=== PATIENT | female | born 1975 | race Caucasian/White ===

== ENCOUNTER → 2018-12-14 10:30 | Outpatient (POV) | payer BC, SELFPAY | PROVIDERS: Visit Provider Dermatology | DX: Z00.00 Encounter for general adult medical examination without abnormal findings (principal) ==

== ENCOUNTER → 2019-10-31 15:20 | Outpatient (CLI) | payer BC, SELFPAY ==
--- NOTE | 2019-10-31 15:28 | XR_ITS ---
PROCEDURE: XR ANKLE LT MIN 3V CLINICAL INDICATION: ACUTE L ANKLE PAIN COMPARISON: No exams were available for comparison FINDINGS: No fracture, dislocation, lytic change, or blastic change evident. No significant degenerative change IMPRESSION: No acute findings. Dictated by: Luther Kruse MD 10/31/2019 16:36 Electronically signed by Luther Kruse MD in [place] 10/31/2019 16:36
== END ==
PROVIDERS: PCP Family Medicine; Visit Provider Family Medicine
DX: M25.572 Pain in left ankle and joints of left foot (principal)
CPT/HCPCS: 73610

== ENCOUNTER → 2022-02-18 10:28 | Outpatient (POV) | payer BC, SELFPAY | PROVIDERS: Visit Provider Dermatology | DX: Z00.00 Encounter for general adult medical examination without abnormal findings (principal) ==

== ENCOUNTER 2023-06-05 18:07 | Emergency (ER) | payer BC, SELFPAY ==
[2023-06-05 18:19] VITALS: BP 192/102; PULSE 67; RESP 18; TEMP 36.6; O2SAT 98; BMI 39.8
[2023-06-05 18:31] VITALS: BP 162/95; PULSE 61; O2SAT 100
--- NOTE | 2023-06-05 18:56 | ED_ITS ---
Discharge Plan Disposition Patient Disposition: Home, Self-Care Prescriptions Prescriptions: No Action paroxetine HCl [Paxil] 10 mg tablet 10 mg PO DAILY Referrals Follow up/Referrals: Blaine Wang MD [Primary Care Provider] - See instructions Activity Restrictions/Add. Instructions Additional Instructions/Restrictions: Call your family doctor to establish care for this visit to the emergency department and schedule follow-up within 48 hours to ensure improvement. If you have any worsening of your condition or any other concerning signs or symptoms, return to the emergency department or your primary care doctor for further evaluation. Take Tylenol 1000 mg every 6 hours (4 times daily) and ibuprofen 400 mg every 6 hours (4 times daily) as needed with food and water to prevent GI upset and kidney damage. Clinical Impressions Clinical Impression: Acute right flank pain Instructions Patient Instructions: DI for Acute Abdominal Pain Discharge ED Provider: Jorge Luis Cedillo General Adult HPI General Chief complaint: Abdominal Pain Stated complaint: abd pain Time Seen by Provider: 06/05/23 18:11 Mode of Arrival: Ambulatory Source of Information: Patient and Spouse Limitations: No Limitations Description of Symptoms (Recalled from ER Triage Doc. by RN): pt c/o RLQ pain that radiates to her R flank. pt states this has been ongoing x3d. pt states she has been urinating more frequently but that is her only urinary symptom. pt reports the pain is stabbing and aching in nature and a 6/10. pt states the pain comes in waves. History of Present Illness HPI narrative: Is a 47-year-old female no relevant medical history presenting with abdominal pain. Patient states that she started having right flank pain 3 days or 4 days prior to this visit. Since that time, it is radiated from her right flank into her right lower quadrant. No fevers or chills, but has had nausea without vomiting and decreased appetite. Waxes and, currently 6 out of 10, stabbing and sharp. Normal bowel movements, no urinary symptoms, no abnormal vaginal discharge or bleeding. No abdominal surgical history Related Data Home Medications Medication Instructions Recorded Confirmed paroxetine HCl 10 mg tablet (Paxil) 10 mg PO DAILY 09/22/18 09/22/18 Allergies Allergy/AdvReac Type Severity Reaction Status Date / Time scallops Allergy Verified 09/22/18 12:44 sesame seed Allergy Verified 09/22/18 12:44 shrimp Allergy Verified 09/22/18 12:44 soy Allergy Verified 09/22/18 12:44 wheat Allergy Verified 09/22/18 12:44 NO KNOWN ALLERGIES Allergy Uncoded 03/17/17 14:08 tree nuts Allergy Uncoded 09/22/18 12:44 PFSH [facility] Disclaimer: The information contained in this section may have been updated after the patient was seen, as this information can be updated by other users. Social History Smoking Status: Never smoker alcohol intake: current substance use type: denies use current occupational status: employed Travel in the last 8 weeks: Inside the [place] ([place] household members: family housing: house ROS Obtained: Yes All systems reviewed & no additional complaints except as documented Physical Exam General General appearance: alert, in no apparent distress and other (Uncomfortable, moving around the bed) Head Head exam: atraumatic and normocephalic Eye Eye exam: Present normal appearance, PERRL and EOMI ENT ENT exam: Present mucous membranes moist Neck Neck exam: Present normal inspection, full ROM and trachea midline Respiratory Respiratory exam: Absent respiratory distress, wheezes, stridor, accessory muscle use or prolonged expiratory phase Cardiovascular Cardiovascular exam: Present regular rate and normal rhythm Abdominal Exam Abdominal exam: Present soft; Absent distention, tenderness, guarding, rebound or rigidity Extremities Exam Extremities exam: Absent edema Back Exam Back exam: Present CVA tenderness (R); Absent CVA tenderness (L) Neurological Exam Neurological exam: Present alert, oriented X3, CN II-XII intact and normal gait; Absent motor sensory deficit Skin Skin exam: Present warm and dry; Absent diaphoresis or erythema Medical Decision Making Medical Records Medical records reviewed: Yes I reviewed the patient's medical records. Derek Inquiry Pt receiving controlled substance: No Derek was queried for this patient: No Vital Signs: 06/05/23 18:19 06/05/23 18:31 Temperature 97.9 F Temperature Source Oral Pulse Rate 61 Pulse Rate [Left] 67 Respiratory Rate 18 Blood Pressure 162/95 H Blood Pressure [Right Arm] 192/102 H Blood Pressure Mean 103 Blood Pressure Mean [Right Arm] 132 Blood Pressure Source [Right Arm] Automatic Cuff Blood Pressure Position [Right Arm] Sitting 02 Sat by Pulse Oximetry 98 100 Lab Data Lab Results 06/05/23 18:30: WBC 8.2, RBC 4.93, Hgb 15.9, Hct 48.4 H, MCV 98.3, MCH 32.3 H, MCHC 32.8, RDW 13.1, Plt Count 290, MPV 8.9, Neut % (Auto) 56.7, Lymph % (Auto) 30.9, [place] % (Auto) 7.5, Eos % (Auto) 3.6, Baso % (Auto) 1.4, Neut # (Auto) 4.6, Lymph # (Auto) 2.5, [place] # (Auto) 0.6, Eos # (Auto) 0.3, Baso # (Auto) 0.1, Sodium 139, Potassium 4.0, Chloride 106, Carbon Dioxide 27, Anion Gap 10.0, BUN 13, Creatinine 0.90, Estimated Creat Clear 126, Estimated GFR 67, Est GFR ( Amer) 81, Glucose 94, Calcium 9.5, Total Bilirubin 0.6, AST 59 H, ALT 70, Alkaline Phosphatase 84, Total Protein 7.8, Albumin 4.3, Globulin 3.5 H, Albumin/Globulin Ratio 1.2, Lipase 141, Serum HCG, Qual Negative 06/05/23 20:38: Urine Color Yellow, Urine Appearance Clear, Urine pH 6.0, Ur Specific [place] 1.015, Urine Protein Negative, Urine Glucose (UA) Negative, Urine Ketones Negative, Urine Blood Negative, Urine Nitrate Negative, Urine Bilirubin Negative, Urine Urobilinogen 0.2, Ur Leukocyte Esterase Negative, Urine RBC None, Urine WBC Occasional, Ur Squamous Epith Cells 3-5, Urine Bacteria Trace, Urine HCG, Qual Negative 06/05/23 18:30 06/05/23 18:30 Orders (Tests/Meds): ED MEDICATIONS Discontinued Medications Generic Name Dose Route Start Last Admin Trade Name Freq PRN Reason Stop Dose Admin Lactated Ringer's 1,000 mls @ 999 mls/hr 06/05/23 18:48 06/05/23 19:03 Lactated Ringer's 1000 Ml Bag IV 06/05/23 19:48 999 mls/hr .Q1H1M ONE Administration Ketorolac Tromethamine 15 mg 06/05/23 18:48 06/05/23 19:03 Ketorolac 30mg/Ml Vial IV 06/05/23 18:49 15 mg ONCE ONE Administration Morphine Sulfate 4 mg 06/05/23 18:49 06/05/23 19:03 Morphine 4mg/Ml Syringe IV 06/05/23 18:50 4 mg ONCE ONE Administration Ondansetron HCl 4 mg 06/05/23 19:08 06/05/23 19:12 Ondansetron 4mg/2ml Vial IV 06/05/23 19:09 4 mg ONCE ONE Administration ORDERS Category Date Time Status CT abdomen pelvis wo con Stat Cat Scan 06/05/23 19:30 Completed CBC w/Auto Diff [Complete Blood Count Auto Diff] Stat Lab 06/05/23 18:30 Completed CMP [Comprehensive Metabolic Panel] Stat Lab 06/05/23 18:30 Completed HCG Qualitative, Serum Stat Lab 06/05/23 18:30 Completed Lipase Stat Lab 06/05/23 18:30 Completed UA [Urinalysis and Microscopic] Stat Lab 06/05/23 20:38 Completed Urine , HCG Qual. Stat Lab 06/05/23 20:38 Completed Medical Decision Narrative: Is a 47-year-old female no relevant medical history presenting with abdominal pain. Patient states that she started having right flank pain 3 days or 4 days prior to this visit. Since that time, it is radiated from her right flank into her right lower quadrant. No fevers or chills, but has had nausea without vomiting and decreased appetite. Waxes and, currently 6 out of 10, stabbing and sharp. Normal bowel movements, no urinary symptoms, no abnormal vaginal discharge or bleeding. No abdominal surgical history. History obtained with patient. On arrival, patient hemodynamically stable, alert, oriented x4, appropriate, GCS 15, moving all extremities spontaneously, pupils equal and reactive to light. Full physical exam performed and significant for well- appearing female, but appears to be uncomfortable. Moving around the bed unable to find comfortable position. Right flank tenderness, no abdominal tenderness. No overlying skin changes. Differential includes nephrolithiasis, UTI, pyelonephritis, perinephric abscess, pancreatitis, cholecystitis, , arterial insufficiency, renal artery thrombosis, among others. Patient was given Toradol and 4 mg morphine for symptomatic management and correction of underlying abnormalities. Workup independently interpreted and significant for nonactionable CBC, kidney function normal. hCG negative, lipase negative. CT abdomen pelvis without acute intra-abdominal pathology, stone, or otherwise. See radiology read for full review of final results. Urinalysis demonstrated negative. On reevaluation, patient resting comfortably in bed reading a book. Given patient presentation, workup, history, this most likely represents passed urinary stone versus pulled muscle. Because patient at baseline without signs or symptoms of clinical decompensation, deemed appropriate for discharge. Results were relayed to patient who voiced understanding and were agreeable to outpatient management and follow up. At the time of discharge the patient was hemodynamically stable, tolerating PO, and mobilizing appropriately. Critical Care Critical Care Time Critical Care Time: No
[2023-06-05 19:01] LABS: Basophils # 0.1 K/mm3 (0-0.2); Basophils % 1.4 % (0.1-2.0); Eosinophils # 0.3 K/mm3 (0.0-0.4); Eosinophils % 3.6 % (0.1-12.0); Hematocrit 48.4 % (37.0-47.0); Hemoglobin 15.9 g/dL (12.2-16.2); Lymphocytes # 2.5 K/mm3 (0.7-4.5); Lymphocytes % 30.9 % (10-50); Mean Corpuscular HGB Conc 32.8 g/dL (31.8-35.4); Mean Corpuscular Hemoglobin 32.3 pg (27.0-31.2); Mean Corpuscular Volume 98.3 fl (81-99); Mean Platelet Volume 8.9 fl (7.4-10.4); Monocytes # 0.6 K/mm3 (0.1-1.0); Monocytes % 7.5 % (1.7-9.3); Neutrophils # 4.6 K/mm3 (1.8-7.8); Neutrophils % 56.7 % (37.0-80.0); Platelet Count 290 K/mm3 (142-424); Red Blood Count 4.93 M/mm3 (4.20-5.40); Red Cell Distribution Width 13.1 % (11.5-17.5); White Blood Count 8.2 K/mm3 (4.8-10.8)
[2023-06-05 19:03] LABS: Chloride 106 mmol/L (98-107)
[2023-06-05] MEDS: KETOROLAC 30MG/ML VIAL 15 MG IV (19:03)
[2023-06-05] MEDS: LACTATED RINGERS 1000ML 1,000 ML 999 ML IV (19:03)
[2023-06-05] MEDS: MORPHINE 4MG/ML SYRINGE 4 MG IV (19:03)
[2023-06-05 19:04] LABS: Sodium 139 mmol/L (136-145)
[2023-06-05 19:06] LABS: Alanine Aminotransferase 70 U/L (12-78); Aspartate Amino Transferase 59 U/L (14-36); Blood Urea Nitrogen 13 mg/dl (7-17); Creatinine Clearance Estimated 126 mL/min (50-200); Estimated Glomerular Filt Rate 67 ml/min (>60); GFR (African American) 81 ML/MIN (>60)
[2023-06-05 19:07] LABS: Albumin Level 4.3 g/dl (3.5-5.0); Albumin/Globulin Ratio 1.2 (1.1-1.8); Alkaline Phosphatase 84 U/L (38-126); Bilirubin,Total 0.6 mg/dl (0.2-1.3); Calcium 9.5 mg/dl (8.4-10.2); Carbon Dioxide 27 mmol/L (22.0-30.0); Globulin 3.5 g/dL (1.3-3.2); Glucose 94 mg/dl (74-100); Lipase 141 U/L (23-300); Total Protein,Serum 7.8 g/dl (6.3-8.2)
[2023-06-05] MEDS: ONDANSETRON 4MG/2ML VIAL 4 MG IV (19:12)
--- NOTE | 2023-06-05 19:30 | CT_ITS ---
PROCEDURE INFORMATION: Exam: CT Abdomen And Pelvis Without Contrast Exam date and time: 06/05/2023 8:21 PM Age: 47 years old Clinical indication: Abdominal pain; Additional info: Right flank tenderness to right lower quadrant TECHNIQUE: Imaging protocol: Computed tomography of the abdomen and pelvis without contrast. Radiation optimization: All CT scans at this facility use at least one of these dose optimization techniques: automated exposure control; mA and/or kV adjustment per patient size (includes targeted exams where dose is matched to clinical indication); or iterative reconstruction. COMPARISON: No relevant prior studies available. FINDINGS: Lungs: Lung bases are clear. Liver: Moderate fatty changes. Liver otherwise unremarkable. Gallbladder and bile ducts: Normal. No calcified stones. No ductal dilation. Pancreas: Normal. No ductal dilation. Spleen: Normal. No splenomegaly. Adrenal glands: Normal. No mass. Kidneys and ureters: Normal. No hydronephrosis. Stomach and bowel: Unremarkable. No obstruction. No mucosal thickening. Appendix: Appendix is normal. No evidence of appendicitis. Intraperitoneal space: Unremarkable. No free air. No significant fluid collection. Vasculature: Unremarkable. No abdominal aortic aneurysm. Lymph nodes: Unremarkable. No enlarged lymph nodes. Urinary bladder: Unremarkable as visualized. Reproductive: Unremarkable as visualized. Bones/joints: Unremarkable. No acute fracture. Soft tissues: Unremarkable. IMPRESSION: No acute abnormalities of the abdomen and pelvis. Nonemergent findings as above.
--- NOTE | 2023-06-05 20:01 | PC.NURSE ---
spoke with rakel for r/o preg situation. advised we would add a serum preg onto her blood already drawn. spoke with caleb in rad and rancho in lab.
[2023-06-05 20:04] LABS: HCG Qualitative, Serum Negative (Negative)
--- NOTE | 2023-06-05 20:17 | PC.NURSE ---
pt to CT at this time
[2023-06-05 20:42] LABS: Microscopic, Urine URINE MICROSCOPIC (MICROSCOPIC)
[2023-06-05 20:52] LABS: Urine Pregnancy, HCG Qual. Negative (Negative)
[2023-06-05 21:53] LABS: Appearance,Urine CLEAR (Clear); Bilirubin,Urine Negative (Negative); Blood, Urine Negative (Negative); Color,Urine YELLOW (Yellow); Glucose,Urine (UA) Negative (Negative); Ketones,Urine Negative (Negative); Leukocyte Esterase,Urine Negative (Negative); Nitrate,Urine Negative (Negative); Protein,Urine Negative (Negative); Specific Gravity, Urine 1.015 (1.005-1.030); Urobilinogen,Urine 0.2 EU/dl (0.2)
[2023-06-05 21:59] LABS: Bacteria,Urine Trace /lpf; WBC,Urine Occasional #/hpf (0-3)
[2023-06-05 22:04] VITALS: BP 193/112; PULSE 71; RESP 16; TEMP 36.1; O2SAT 98
--- NOTE | 2023-06-05 22:04 | PC.NURSE ---
contacted rakel for disk. spoke with ariel.
[2023-06-05 22:07] VITALS: BP 193/112; PULSE 70; RESP 18; O2SAT 96
== END 2023-06-05 22:16 | disposition home or self-care (01) ==
PROVIDERS: Emergency Provider Emergency Medicine; PCP Family Medicine
DX: R10.31 Right lower quadrant pain (principal)
CPT/HCPCS: 36415; 74176; 80053; 81001; 81025; 83690; 84703; 85025; 96361; 96374; 96375; 99285; J2405

== ENCOUNTER 2023-08-22 10:03 | Emergency (ER) | payer BC, SELFPAY ==
[2023-08-22 10:10] VITALS: BP 140/89; PULSE 93; RESP 20; TEMP 36.7; O2SAT 96; BMI 39.3
--- NOTE | 2023-08-22 10:13 | EXP.UTC ---
Discharge Plan Disposition Patient Disposition: Home, Self-Care Condition: Good Prescriptions Prescriptions: New triamcinolone acetonide 0.1 % cream 1 applic topical TID Qty: 30 0RF Referrals Follow up/Referrals: Provider,Referral, MD [Primary Care Provider] - See instructions Activity Restrictions/Add. Instructions Additional Instructions/Restrictions: Make a follow up appointment with PCP. Take Benadryl once you get home. Clinical Impressions Clinical Impression: Allergic reaction caused by a drug Qualifiers: Encounter type: initial encounter Qualified Code(s): T78.40XA - Allergy, unspecified, initial encounter Instructions Patient Instructions: DI for Adverse Drug Reaction -- Allergic, DI for Adverse Drug Reaction -- Other Discharge ED Provider: Jazmín Russell [facility] General Stated complaint: allergic reaction to medication, rash Time Seen by Provider: 08/22/23 10:12 Description of Symptoms (Recalled from Triage Doc. by RN): Pt relates that she was prescribed HCTZ on Thursday and then she started having severe chills and body aches. She states that she awoke this morning with a rash on her right lower leg. She states that she has taken 800mg of Ibuprofen for her symptoms. She relates that she has stopped the HCTZ after one dose. History of Present Illness Provider Complaint: Pt relates that she was prescribed HCTZ on Thursday and then she started having severe chills and body aches. She states that she awoke this morning with a rash on her right lower leg. She states that she has taken 800mg of Ibuprofen for her symptoms. She relates that she has stopped the HCTZ after one dose. Related Data Previous Rx's Medication Instructions Recorded triamcinolone acetonide 0.1 % 1 applic topical TID #30 grams 08/22/23 topical cream Allergies Allergy/AdvReac Type Severity Reaction Status Date / Time escitalopram [From Lexapro] Allergy Verified 08/22/23 10:23 hydrochlorothiazide Allergy Verified 08/22/23 10:23 scallops Allergy Verified 09/22/18 12:44 sesame seed Allergy Verified 09/22/18 12:44 shrimp Allergy Verified 09/22/18 12:44 soy Allergy Verified 09/22/18 12:44 tree nut Allergy Verified 08/22/23 10:23 wheat Allergy Verified 09/22/18 12:44 [facility] Disclaimer: The information contained in this section may have been updated after the patient was seen, as this information can be updated by other users. Medical History (Updated 08/22/23 @ 10:41 by Jazmín Russell APRN) Depression Anxiety Social History Smoking Status: Never smoker alcohol intake: current alcohol intake frequency: a few times a month substance use type: denies use current occupational status: employed Travel in the last 8 weeks: [place] household members: family housing: house ROS Obtained: Yes All systems reviewed & no additional complaints except as documented Constitutional Constitutional: Reports system reviewed and no additional complaints, except as documented, Reports body ache and Reports chills Eyes Eyes: Reports system reviewed and no additional complaints, except as documented ENT Ears, Nose, Mouth, and Throat: Reports system reviewed and no additional complaints, except as documented Cardiovascular Cardiovascular: Reports system reviewed and no additional complaints, except as documented Respiratory Respiratory: Reports system reviewed and no additional complaints, except as documented Gastrointestinal Gastrointestingal: Reports system reviewed and no additional complaints, except as documented Genitourinary Female Genitourinary: Reports system reviewed and no additional complaints, except as documented Musculoskeletal Musculoskeletal: Reports system reviewed and no additional complaints, except as documented, Reports arthralgias and Reports myalgias Integumentary/Breasts Skin/Breast: Reports system reviewed and no additional complaints, except as documented and Reports rash Neurologic Neurologic: Reports system reviewed and no additional complaints, except as documented Endocrine Endocrine: Reports system reviewed and no additional complaints, except as documented Hematologic/Lymphatic Henatologic/Lymphatic: Reports system reviewed and no additional complaints, except as documented Allergic/Immunologic Allergic/Immunologic: Reports system reviewed and no additional complaints, except as documented and Reports as per HPI Physical Exam General General appearance: alert and anxious Head Head exam: atraumatic and normocephalic Eye Eye exam: Present normal appearance ENT ENT exam: Present normal exam Neck Neck exam: Present normal inspection Chest Chest inspection: Present normal inspection and symmetric chest wall rise Respiratory Respiratory exam: Present normal lung sounds bilaterally Cardiovascular Cardiovascular exam: Present regular rate and normal rhythm Abdominal Exam Abdominal exam: Present soft and normal bowel sounds Expanded Lower Extremity Exam Right: Upper leg exam: Present normal inspection Knee exam: Present normal inspection Lower leg exam: Present tenderness, swelling, erythema and other (rash) Foot/toe exam: Present normal inspection Neurovascular/Tendon exam: Present normal capillary refill Gait: observed and normal Back Exam Back exam: Present normal inspection Neurological Exam Neurological exam: Present alert and oriented X3 Psychiatric Psychiatric exam: Present normal affect and anxious Skin Skin exam: Present rash Expanded Skin Exam Type of lesion: Present rash Distribution: RLE Description: Present erythematous and petechial Lymphatic Lymphatic Findings: no adenopathy Medical Decision Making Derek Inquiry Pt receiving controlled substance: No Derek was queried for this patient: No
[2023-08-22] MEDS: DEXAMETHASONE 4MG/ML 1ML VIAL 4 MG IM (10:34)
[2023-08-22 11:04] VITALS: BP 140/89; PULSE 93; RESP 18; TEMP 36.7; O2SAT 96
== END 2023-08-22 11:04 | disposition home or self-care (01) ==
PROVIDERS: Emergency Provider Nurse Practitioner Family
DX: T78.40XA Allergy, unspecified, initial encounter (principal); R21 Rash and other nonspecific skin eruption
CPT/HCPCS: 96372; 99204; 99212; G0463

== ENCOUNTER 2023-08-24 10:53 | Emergency (ER) | payer BC, SELFPAY ==
[2023-08-24 10:54] VITALS: BP 165/112; PULSE 96; RESP 18; TEMP 36.6; O2SAT 97; BMI 39.3
[2023-08-24 11:00] VITALS: BP 165/112; PULSE 96; RESP 22; O2SAT 97
--- NOTE | 2023-08-24 11:06 | PC.NURSE ---
ED MD AT BEDSIDE
--- NOTE | 2023-08-24 11:15 | HMH.EDGENADL ---
Discharge Plan Disposition Patient Disposition: Home, Self-Care Condition: Fair Prescriptions Prescriptions: New cephalexin 500 mg capsule 500 mg PO QID 10 Days Qty: 40 0RF sulfamethoxazole-trimethoprim [Bactrim DS] 800-160 mg tablet 1 tab PO BID 10 Days Qty: 20 0RF No Action triamcinolone acetonide 0.1 % cream 1 applic topical TID Qty: 30 0RF Referrals Follow up/Referrals: Silverio Powell DO [Staff Physician] - See instructions Provider,Referral, [Primary Care Provider] - See instructions Activity Restrictions/Add. Instructions Additional Instructions/Restrictions: You were seen in the ED today due to infection of right leg. Please take antibiotics as prescribed. Follow-up with your primary care. Return to the ED if symptoms worsen or if new concerning symptoms arise. Thank you. Clinical Impressions Clinical Impression: Cellulitis of leg, right Instructions Patient Instructions: Cellulitis Discharge ED Provider: Brad Maxwell Adult HPI General Chief complaint: PAIN Stated complaint: rash on left leg pain and redness Time Seen by Provider: 08/24/23 11:02 Mode of Arrival: Ambulatory Source of Information: Patient Limitations: No Limitations Description of Symptoms (Recalled from ER Triage Doc. by RN): Patient presents to ED with a rash to her right nelson area that showed up last . Patient was seen thursday at [facility] but rash has spread up the leg at this time and it is very painful. Patient is also c/o of pain to the right groin area that started last night. History of Present Illness HPI narrative: Patient is a 47-year-old female with history of HTN who presents due to rash. Patient's is present to help provide history. Patient reports she began to have rash on right lower leg on 08/20. She was seen in urgent care the next day and was given steroids and advised to take Benadryl. She states since then, the rash has worsened and has become very red and painful. States she is able to ambulate but with pain. She also reports she has tenderness in her right upper inner thigh. She has not noticed any rash elsewhere. She denies any preceding trauma. She does note symptoms began after she began taking hydrochlorothiazide. She was also experiencing bodyaches, joint pains, fatigue however states these symptoms have resolved after she discontinued the medication. She has not had any fevers. Denies any history of blood clots. Denies any OCP use. Denies any blood thinner use. Related Data Previous Rx's Medication Instructions Recorded triamcinolone acetonide 0.1 % 1 applic topical TID #30 grams 08/22/23 topical cream cephalexin 500 mg capsule 500 mg PO QID 10 days #40 caps 08/24/23 sulfamethoxazole 800 1 tab PO BID 10 days #20 tabs 08/24/23 mg-trimethoprim 160 mg tablet (Bactrim DS) Allergies Allergy/AdvReac Type Severity Reaction Status Date / Time escitalopram [From Lexapro] Allergy Verified 08/22/23 10:23 hydrochlorothiazide Allergy Verified 08/22/23 10:23 scallops Allergy Verified 09/22/18 12:44 sesame seed Allergy Verified 09/22/18 12:44 shrimp Allergy Verified 09/22/18 12:44 soy Allergy Verified 09/22/18 12:44 tree nut Allergy Verified 08/22/23 10:23 wheat Allergy Verified 09/22/18 12:44 PFSH [facility] Disclaimer: The information contained in this section may have been updated after the patient was seen, as this information can be updated by other users. Medical History (Updated 08/24/23 @ 12:31 by Brad Maxwell MD) Depression Anxiety Social History Smoking Status: Never smoker alcohol intake: current alcohol intake frequency: a few times a month substance use type: denies use current occupational status: employed Travel in the last 8 weeks: Inside the [facility] ([place]) household members: family housing: house ROS Obtained: Yes All systems reviewed & no additional complaints except as documented Physical Exam General General appearance: alert and in no apparent distress Head Head exam: atraumatic, normocephalic and normal inspection Eye Eye exam: Present normal appearance, PERRL and EOMI ENT ENT exam: Present normal exam, normal oropharynx, mucous membranes moist, TM's normal bilaterally and normal external ear exam Neck Neck exam: Present normal inspection, full ROM and trachea midline; Absent meningismus or lymphadenopathy Chest Chest inspection: Present normal inspection and symmetric chest wall rise; Absent tenderness Respiratory Respiratory exam: Present normal lung sounds bilaterally; Absent respiratory distress Cardiovascular Cardiovascular exam: Present regular rate and normal rhythm; Absent JVD Abdominal Exam Abdominal exam: Present soft and normal bowel sounds; Absent distention, tenderness or guarding Extremities Exam Extremities exam: Present normal inspection, full ROM and normal capillary refill; Absent calf tenderness Back Exam Back exam: Present normal inspection; Absent tenderness Neurological Exam Neurological exam: Present alert and oriented X3 Psychiatric Psychiatric exam: Present normal affect and normal mood Skin Skin exam: Present warm, dry, intact, normal color and rash (Coalescing maculopapular rash, circumferential around right lower leg with blanchable erythema, warmth to touch, tenderness to touch. Tenderness to palpation of right upper inner thigh with no skin changes.) Lymphatic Lymphatic Findings: no adenopathy Medical Decision Making Medical Records Medical records reviewed: Yes I reviewed the patient's medical records. Derek Inquiry Pt receiving controlled substance: No Vital Signs: 08/24/23 10:54 08/24/23 11:00 08/24/23 11:31 Temperature 97.8 F Temperature Source Oral Pulse Rate 96 H 90 Pulse Rate [Right Radial] 96 H Respiratory Rate 18 22 22 Blood Pressure 165/112 H 135/82 Blood Pressure [Right Arm] 165/112 H Blood Pressure Mean 99 Blood Pressure Mean [Right Arm] 129 Blood Pressure Source [Right Arm] Automatic Cuff Blood Pressure Position [Right Arm] Sitting 02 Sat by Pulse Oximetry 97 97 97 Oxygen Delivery Method Room Air Room Air Room Air 08/24/23 12:00 Temperature Temperature Source Pulse Rate 75 Pulse Rate [Right Radial] Respiratory Rate Blood Pressure 137/76 Blood Pressure [Right Arm] Blood Pressure Mean 90 Blood Pressure Mean [Right Arm] Blood Pressure Source [Right Arm] Blood Pressure Position [Right Arm] 02 Sat by Pulse Oximetry 96 Oxygen Delivery Method Room Air Lab Data Lab Results 08/24/23 11:25: WBC 10.3, RBC 4.54, Hgb 14.4, Hct 43.6, MCV 96.0, MCH 31.8 H, MCHC 33.2, RDW 13.7, Plt Count 266, MPV 8.6, Neut % (Auto) 64.4, Lymph % (Auto) 24.1, [place] % (Auto) 10.5 H, Eos % (Auto) 0.4, Baso % (Auto) 0.6, Neut # (Auto) 6.7, Lymph # (Auto) 2.5, [place] # (Auto) 1.1 H, Eos # (Auto) 0.0, Baso # (Auto) 0.1, PT 10.4, INR 0.96, Sodium 136, Potassium 3.6, Chloride 102, Carbon Dioxide 28, Anion Gap 9.6, BUN 18 H, Creatinine 1.10 H, Estimated Creat Clear 101, Estimated GFR 53 L, Est GFR ( Amer) 64, Glucose 93, Calcium 9.3, Total Bilirubin 0.4, AST 43 H, ALT 62, Alkaline Phosphatase 71, C-Reactive Protein 71.3 H, Total Protein 7.3, Albumin 3.7, Globulin 3.6 H, Albumin/Globulin Ratio 1.0 L 08/24/23 11:25 08/24/23 11:25 Orders (Tests/Meds): ED MEDICATIONS Discontinued Medications Generic Name Dose Route Start Last Admin Trade Name Freq PRN Reason Stop Dose Admin Morphine Sulfate 4 mg 08/24/23 11:13 08/24/23 11:20 Morphine 4mg/Ml Syringe IV 08/24/23 11:14 4 mg ONCE ONE Administration Ondansetron HCl 4 mg 08/24/23 11:13 08/24/23 11:20 Ondansetron 4mg/2ml Vial IV 08/24/23 11:14 4 mg ONCE ONE Administration ORDERS Category Date Time Status POCUS Point of Care (ER Only) Stat Exams 08/24/23 12:05 Ordered CBC w/Auto Diff [Complete Blood Count Auto Diff] Stat Lab 08/24/23 11:25 Completed CMP [Comprehensive Metabolic Panel] Stat Lab 08/24/23 11:25 Completed CRP [C-Reactive Protein] Stat Lab 08/24/23 11:25 Completed PT INR [Prothrombin Time INR] Stat Lab 08/24/23 11:25 Completed Medical Decision Narrative: In summary, patient is a 47-year-old female with history of HTN, evaluated in the emergency department today due to rash and leg pain. On arrival, patient is hypertensive, otherwise hemodynamically stable with normal vital signs. On examination, patient has tenderness to palpation of right upper inner thigh and maculopapular rash over right lower leg. Differential diagnosis includes but is not limited to cellulitis, contact dermatitis, DVT, medication side effect. Patient given IV morphine, IV Zofran. Workup initiated including CBC, CMP, CRP, PT/INR. Labs independently interpreted by me and significant for CRP 71.3, creatinine 1.1. [id number] DVT ultrasound of right lower extremity negative for DVT. Based on quality and presentation of patient's symptoms, we will plan to treat for cellulitis. In shared decision-making with patient, she is comfortable with outpatient management at this time. Prescriptions for Keflex and Bactrim provided. Referral for primary care provided. Patient counseled on home care, given strict return precautions and agreeable to plan. Additional history was provided by family. I considered the utility of obtaining CT, but decided against this because this would not interchange agent. I considered the utility of treatment with prescription for narcotics, but decided against this because risks outweigh benefits. I considered admitting the patient to the hospital for IV antibiotics, and in shared decision-making with patient, decided on outpatient therapy. Procedures Limited Ultrasound Indication:: Right leg pain, swelling Findings:: Normal compression of right lower extremity veins with no clot seen. Interpretation:: Negative DVT scan. Critical Care Critical Care Time Critical Care Time: No
[2023-08-24] MEDS: MORPHINE 4MG/ML SYRINGE 4 MG IV (11:20)
[2023-08-24] MEDS: ONDANSETRON 4MG/2ML VIAL 4 MG IV (11:20)
[2023-08-24 11:31] VITALS: BP 135/82; PULSE 90; RESP 22; O2SAT 97
[2023-08-24 11:43] LABS: Chloride 102 mmol/L (98-107)
[2023-08-24 11:44] LABS: Potassium 3.6 mmoL/L (3.5-5.1); Sodium 136 mmol/L (136-145)
[2023-08-24 11:46] LABS: Alanine Aminotransferase 62 U/L (12-78); Alkaline Phosphatase 71 U/L (38-126); Aspartate Amino Transferase 43 U/L (14-36); Bilirubin,Total 0.4 mg/dl (0.2-1.3); Blood Urea Nitrogen 18 mg/dl (7-17); Creatinine Clearance Estimated 101 mL/min (50-200); Estimated Glomerular Filt Rate 53 ml/min (>60); GFR (African American) 64 ML/MIN (>60)
[2023-08-24 11:47] LABS: Albumin Level 3.7 g/dl (3.5-5.0); Anion Gap 9.6 mEq/L (5-15); Calcium 9.3 mg/dl (8.4-10.2); Carbon Dioxide 28 mmol/L (22.0-30.0); Globulin 3.6 g/dL (1.3-3.2); Glucose 93 mg/dl (74-100); Total Protein,Serum 7.3 g/dl (6.3-8.2)
[2023-08-24 11:52] LABS: C-Reactive Protein 71.3 mg/L (0-4)
[2023-08-24 11:56] LABS: Basophils # 0.1 K/mm3 (0-0.2); Basophils % 0.6 % (0.1-2.0); Eosinophils % 0.4 % (0.1-12.0); Hematocrit 43.6 % (37.0-47.0); Hemoglobin 14.4 g/dL (12.2-16.2); Lymphocytes # 2.5 K/mm3 (0.7-4.5); Lymphocytes % 24.1 % (10-50); Mean Corpuscular HGB Conc 33.2 g/dL (31.8-35.4); Mean Corpuscular Hemoglobin 31.8 pg (27.0-31.2); Mean Platelet Volume 8.6 fl (7.4-10.4); Monocytes # 1.1 K/mm3 (0.1-1.0); Monocytes % 10.5 % (1.7-9.3); Neutrophils # 6.7 K/mm3 (1.8-7.8); Neutrophils % 64.4 % (37.0-80.0); Platelet Count 266 K/mm3 (142-424); Red Blood Count 4.54 M/mm3 (4.20-5.40); Red Cell Distribution Width 13.7 % (11.5-17.5); White Blood Count 10.3 K/mm3 (4.8-10.8)
[2023-08-24 12:00] VITALS: BP 137/76; PULSE 75; O2SAT 96
[2023-08-24 12:07] LABS: INR 0.96 (0.9-1.1); Prothrombin Time 10.4 seconds (10.1-12.5)
--- NOTE | 2023-08-24 12:11 | PC.NURSE ---
Dr. Maxwell at bedside with u/s
[2023-08-24 12:35] VITALS: BP 128/64; PULSE 76; RESP 18; TEMP 36.8; O2SAT 99
== END 2023-08-24 12:43 | disposition home or self-care (01) ==
PROVIDERS: Emergency Provider Student in an Organized Health Care Education/Training Program
DX: M79.604 Pain in right leg (principal); L03.115 Cellulitis of right lower limb; I10 Essential (primary) hypertension
CPT/HCPCS: 80053; 85025; 85610; 86140; 96374; 96375; 99285; J2405

== ENCOUNTER 2023-11-28 09:23 | Observation (INO) | payer BC, SELFPAY ==
[2023-11-28] VITALS (9 sets, daily range): BP systolic 100–168; BP diastolic 61–97; PULSE 73–100; RESP 13–20; TEMP 36.7–37.7; O2SAT 91–95; BMI 38.0; BMI 40.0
--- NOTE | 2023-11-28 09:48 | ED_ITS ---
Discharge Plan Disposition Patient Disposition: Admitted Condition: Good Clinical Impressions Clinical Impression: Erysipelas, Sepsis, Hematuria Discharge ED Provider: Shonda Shay General Adult HPI General Chief complaint: Allergic Reaction Stated complaint: redness, fever, headache right leg pain Time Seen by Provider: 11/28/23 09:29 History of Present Illness HPI narrative: This patient is a 48-year-old female with a history of hypertension and prior reaction to hydrochlorothiazide presenting to the emergency department for evaluation with concern for redness, warmth, pain to her right leg as well as fevers, chills, headache, nausea, body aches. Patient states that this feels similar to when she was seen here 08/24/2023 for similar issues and states that it was because of an allergic reaction to hydrochlorothiazide. She was having bodyaches, joint pains, and fatigue but those stopped after she stopped taking the hydrochlorothiazide. She was evaluated here in the ED and was found to have cellulitis, for which she was treated as an outpatient with triamcinolone, Bactrim, and Keflex. The symptoms then resolved. She states she has not seen anyone for follow-up since then, as she had been doing fine and has been working a lot. On 2 days ago, she had red wine and figs out with a friend. Immediately after that she started feeling really ill with again fevers, body aches, fatigue, nausea. She states that he feels similar to when she had the issue back in July. She states that she thinks she may be having a histamine type reaction, but now she is having redness, warmth, and pain in her leg again as well as a rash, for which she became concerned for cellulitis Related Data Home Medications ?Medication ?Instructions ?Recorded ?Confirmed No Known Home Medications 11/28/23 11/28/23 Allergies Allergy/AdvReac Type Severity Reaction Status Date / Time escitalopram [From Lexapro] Allergy Verified 08/22/23 10:23 hydrochlorothiazide Allergy Verified 08/22/23 10:23 scallops Allergy Verified 09/22/18 12:44 sesame seed Allergy Verified 09/22/18 12:44 shrimp Allergy Verified 09/22/18 12:44 soy Allergy Verified 09/22/18 12:44 tree nut Allergy Verified 08/22/23 10:23 wheat Allergy Verified 09/22/18 12:44 [facility] Disclaimer: The information contained in this section may have been updated after the patient was seen, as this information can be updated by other users. Medical History Depression Anxiety Family History Other No significant family history Social History Smoking Status: Former smoker alcohol intake: current alcohol intake frequency: a few times a month substance use type: denies use current occupational status: employed Travel in the last 8 weeks: Inside the [place] ([place]) household members: family housing: house ROS Obtained: Yes All systems reviewed & no additional complaints except as documented Physical Exam General General appearance: alert and in no apparent distress Head Head exam: atraumatic and normocephalic Eye Eye exam: Present normal appearance, PERRL and EOMI ENT ENT exam: Present normal exam, normal oropharynx, mucous membranes moist and normal external ear exam Neck Neck exam: Present normal inspection, full ROM and trachea midline; Absent tenderness Chest Chest inspection: Present normal inspection and symmetric chest wall rise; Absent tenderness Respiratory Respiratory exam: Present normal lung sounds bilaterally; Absent respiratory distress, wheezes, stridor or accessory muscle use Cardiovascular Cardiovascular exam: Present regular rate and normal rhythm Abdominal Exam Abdominal exam: Present soft; Absent distention, tenderness or guarding Extremities Exam Extremities exam: Present full ROM, tenderness, normal capillary refill, edema and other (Well-circumscribed erythematous macular rash streaking up the right lower extremity mostly on the posterolateral aspect. All compartments soft. Neurovascularly intact distally) Back Exam Back exam: Present normal inspection and full ROM; Absent tenderness Neurological Exam Neurological exam: Present alert, oriented X3, CN II-XII intact and normal gait; Absent motor sensory deficit Psychiatric Psychiatric exam: Present normal affect and normal mood Skin Skin exam: Present warm and dry Medical Decision Making Medical Records Medical records reviewed: Yes I reviewed the patient's medical records. Derek Inquiry Pt receiving controlled substance: No Vital Signs: 11/28/23 09:25 11/28/23 09:31 11/28/23 10:05 Temperature 99.8 F H Temperature Source Oral Pulse Rate 100 H 95 H Pulse Rate [Left Radial] 92 H Respiratory Rate 16 Blood Pressure 156/88 H 168/97 H Blood Pressure [Right Arm] 156/88 H Blood Pressure Mean [Right Arm] 110 02 Sat by Pulse Oximetry 95 93 L 93 L Oxygen Delivery Method Room Air Room Air Room Air 11/28/23 11:01 11/28/23 12:00 11/28/23 12:47 Temperature 98.0 F Temperature Source Pulse Rate 80 74 74 Pulse Rate [Left Radial] Respiratory Rate 13 Blood Pressure 100/69 L 112/61 112/61 Blood Pressure [Right Arm] Blood Pressure Mean [Right Arm] 02 Sat by Pulse Oximetry 95 93 L Oxygen Delivery Method Room Air Room Air Lab Data Lab results reviewed: Yes I reviewed the patient's lab results. Lab Results 11/28/23 09:46: WBC 12.3 H, RBC 4.66, Hgb 14.7, Hct 45.6, MCV 97.8, MCH 31.5 H, MCHC 32.2, RDW 14.3, Plt Count 228, MPV 8.4, Neut % (Auto) 84.6 H, Lymph % (Auto) 9.6 L, [place] % (Auto) 4.5, Eos % (Auto) 0.9, Baso % (Auto) 0.4, Neut # (Auto) 10.4 H, Lymph # (Auto) 1.2, [place] # (Auto) 0.6, Eos # (Auto) 0.1, Baso # (Auto) 0.1, ESR 44 H, D-Dimer 0.69 H, Sodium 134 L, Potassium 3.7, Chloride 104, Carbon Dioxide 24, Anion Gap 9.7, BUN 7, Creatinine 0.90, Estimated Creat Clear 12, Estimated GFR 66, Est GFR ( Amer) 80, Glucose 104 H, Lactate 0.8, Calcium 9.0, Total Bilirubin 0.8, AST 36, ALT 51, Alkaline Phosphatase 67, C- Reactive Protein 228.1 H, Total Protein 7.9, Albumin 3.9, Globulin 4.0 H, A lbumin/Globulin Ratio 1.0 L, Procalcitonin 0.227 11/28/23 09:54: SARS-CoV-2 (PCR) Not detected, Influenza A Untype (PCR) Not detected, Influenza Type B (PCR) Not detected 11/28/23 09:59: Urine Color Yellow, Urine Appearance Clear, Urine pH 6.0, Ur Specific [place] 1.015, Urine Protein Negative, Urine Glucose (UA) Negative, Urine Ketones 2+, Urine Blood 1+ A, Urine Nitrate Negative, Urine Bilirubin 1+ A , Urine Urobilinogen 0.2, Ur Leukocyte Esterase Negative, Urine RBC Occasional, Urine WBC None, Ur Squamous Epith Cells 3-5, Urine Bacteria Trace 11/28/23 09:46 11/28/23 09:46 Orders (Tests/Meds): ED MEDICATIONS Generic Name Dose Route Start Last Admin Trade Name Merly PRN Reason Stop Dose Admin Acetaminophen 650 mg 11/28/23 12:15 Acetaminophen 325mg Tab PO 12/28/23 12:14 Q4HP PRN Fever or Mild Pain (1-3) Ceftriaxone Sodium 2 gm/ 100 mls @ 200 mls/hr 11/29/23 12:00 Sodium Chloride IV 12/09/23 11:59 Q24H [facility] Vancomycin/PEG/[place]/Lysine/Water 1.75 gm in 350 mls @ 175 mls/hr 11/29/23 06:00 Vancomycin 1.75gm/350ml (Peg) Premix IV 12/09/23 05:59 Q18H [facility] Ketorolac Tromethamine 30 mg 11/28/23 12:15 Ketorolac 30mg/Ml Vial IV 12/03/23 12:14 Q6HP PRN Moderate Pain (4-6) Miscellaneous 1 each 11/28/23 12:30 11/28/23 14:04 Vancomycin Consult Request NOTAPPLIC 12/28/23 12:29 1 each [facility]ULT [facility] Administration Discontinued Medications Generic Name Dose Route Start Last Admin Trade Name eMrly PRN Reason Stop Dose Admin Acetaminophen 1,000 mg 11/28/23 09:44 11/28/23 09:52 Acetaminophen 1,000mg/100ml Vial IV 11/28/23 09:45 1,000 mg ONCE ONE Administration Dexamethasone Sodium Phosphate 10 mg 11/28/23 10:52 11/28/23 11:02 Dexamethasone 4mg/Ml 1ml Vial IV 11/28/23 10:53 10 mg ONCE ONE Administration Diphenhydramine HCl 25 mg 11/28/23 10:52 11/28/23 11:01 Diphenhydramine 50mg/Ml Vial IV 11/28/23 10:53 25 mg ONCE ONE Administration Lactated Ringer's 1,000 mls @ 999 mls/hr 11/28/23 09:44 11/28/23 09:52 Lactated Ringer's 1000 Ml Bag IV 11/28/23 10:44 999 mls/hr .Q1H1M ONE Administration Lactated Ringer's 1,640 mls @ 820 mls/hr 11/28/23 10:29 11/28/23 10:38 Lactated Ringer's 1000 Ml Bag 30 ml/kg infuse over 2 hr (1640 ml) 11/28/23 12:28 820 mls/hr IV Administration .Q2H ONE Ceftriaxone Sodium 2 gm/ 100 mls @ 200 mls/hr 11/28/23 11:47 11/28/23 12:00 Sodium Chloride IV 11/28/23 12:16 200 mls/hr ONCE ONE Administration Vancomycin/PEG/[place]/Lysine/Water 1.75 gm in 350 mls @ 175 mls/hr 11/28/23 12:00 11/28/23 12:08 Vancomycin 1.75gm/350ml (Peg) Premix IV 11/28/23 13:59 175 mls/hr ONCE ONE Administration Ketorolac Tromethamine 15 mg 11/28/23 09:44 11/28/23 09:52 Ketorolac 30mg/Ml Vial IV 11/28/23 09:45 15 mg ONCE ONE Administration Metoclopramide HCl 5 mg 11/28/23 10:52 11/28/23 11:01 Metoclopramide Hcl 10mg/2ml Vial IVP 11/28/23 10:53 5 mg ONCE ONE Administration Miscellaneous 1 each 11/28/23 12:00 Vancomycin Consult Request NOTAPPLIC 12/28/23 11:59 [facility] Ondansetron HCl 4 mg 11/28/23 09:44 11/28/23 09:52 Ondansetron 4mg/2ml Vial IV 11/28/23 09:45 4 mg ONCE ONE Administration ORDERS Category Date Time Status CT abdomen pelvis wo con Stat Cat Scan 11/28/23 10:29 Completed POCUS Point of Care (ER Only) Stat Exams 11/28/23 10:17 Completed CRP [C-Reactive Protein] Stat Lab 11/28/23 09:46 Completed Complete Blood Count Auto Diff AMLAB Lab 11/29/23 06:00 Ordered Complete Blood Count Auto Diff Stat Lab 11/28/23 09:46 Completed Comprehensive Metabolic Panel [facility] Lab 11/29/23 06:00 Ordered Comprehensive Metabolic Panel Stat Lab 11/28/23 09:46 Completed D-Dimer Stat Lab 11/28/23 09:46 Completed ESR [Erythrocyte Sedimentation Rate] Stat Lab 11/28/23 09:46 Completed Lactic Acid Stat Lab 11/28/23 09:46 Completed Magnesium [facility] Lab 11/29/23 06:00 Ordered Procalcitonin Stat Lab 11/28/23 09:46 Completed Rapid PCR Covid and Flu A/B Stat Lab 11/28/23 09:54 Completed UA [Urinalysis and Microscopic] Stat Lab 11/28/23 09:59 Completed Blood Culture Stat Micro 11/28/23 09:55 Received Urine Culture Stat Micro 11/28/23 11:07 Received Medical Decision Narrative: In summary, this patient is a 48-year-old female presenting to the Emergency Department for evaluation of fevers, chills, nausea, body aches, and redness and warmth of her right leg. She notes this started acutely after drinking wine and eating figs. Differential diagnoses considered include but are not limited to cellulitis, erysipelas, sepsis, histamine reaction, viral syndrome, DVT. Ruling out the most morbid conditions drove assessment. I reviewed patient's past medical records and noted previous evaluation here for similar issue 08/21/2023 as per HPI. On exam, the patient is nontoxic-appearing. She has erythematous macular rash that is warm to the touch and tender to palpation streaking up the lateral aspect of her right leg. All compartments soft. Neurovascularly intact distally. Workup included lab evaluation to evaluate for infectious/metabolic etiologies of the patient's symptoms as well as viral swab. She was given a bolus of IV fluids as well as IV Zofran, Toradol, and acetaminophen. Labs were obtained that demonstrated leukocytosis with elevated inflammatory markers. D-dimer is negative per years criteria, but I did perform a DVT ultrasound which was negative urine is positive for blood and bilirubin. Patient does have a history of kidney stones given that she is presenting with a sepsis picture currently with fever, tachycardia, tachypnea, and leukocytosis, decided to obtain CT abdomen and pelvis without IV contrast to evaluate for potential stone. I had an interactive discussion with the radiologist and intermittently interpreted the CT prior to radiology read and noted that she has pelvic phleboliths but no ureteral stones. No hydronephrosis. Ultimately I feel she likely has erysipelas of her right lower extremity and she meets sepsis criteria. Given this, I feel she would benefit from admission for IV antibiotics pending blood cultures. She was given sepsis bolus of IV fluids as well as IV vancomycin and Rocephin to treat skin and soft tissue infection. I had an interactive discussion with the hospitalist who admitted the patient for further evaluation and management Procedures Limited Ultrasound Views:: Limited DVT ultrasound Indication: Limited compression ultrasonography of the right lower extremity was performed to evaluate for non-compressibility of the deep veins in the patient. The ultrasound was performed with the following indications, as noted in the H&P: Right leg swelling, pain, erythema Identified structures: Right [common femoral vein, femoral vein, popliteal vein were examined.] Findings: Lower Extremity: Right CFV: [Good compressibility or Non-compressible or Not performed] Right FV: [Good compressibility or Non-compressible or Not performed] Right Popliteal vein: [Good compressibility or Non-compressible or Not performed] Impression: Normal right lower extremity DVT ultrasound Images were saved to permanent archive The study was technically adequate CPT: 97564-59-YL This study was performed by me, and I personally interpreted all images/videos. Based on my clinical judgement, these images were adequate and did not necessitate further imaging. Critical Care Critical Care Time Critical Care Time: No
[2023-11-28] MEDS: ONDANSETRON 4MG/2ML VIAL 4 MG IV (09:52)
[2023-11-28] MEDS: ACETAMINOPHEN 1,000MG/100ML VIAL 1000 MG IV (09:52)
[2023-11-28] MEDS: KETOROLAC 30MG/ML VIAL 15 MG IV (09:52)
[2023-11-28] MEDS: LACTATED RINGERS 1000ML 1,000 ML 999 ML IV (09:52)
[2023-11-28 09:57] LABS: Coronavirus 19, PCR Not Detected (NotDetected); Influenza A, PCR Not Detected (NotDetected); Influenza B, PCR Not Detected (NotDetected)
[2023-11-28 09:57] LABS: Basophils # 0.1 K/mm3 (0-0.2); Basophils % 0.4 % (0.1-2.0); Eosinophils # 0.1 K/mm3 (0.0-0.4); Eosinophils % 0.9 % (0.1-12.0); Hematocrit 45.6 % (37.0-47.0); Hemoglobin 14.7 g/dL (12.2-16.2); Lymphocytes # 1.2 K/mm3 (0.7-4.5); Lymphocytes % 9.6 % (10-50); Mean Corpuscular HGB Conc 32.2 g/dL (31.8-35.4); Mean Corpuscular Hemoglobin 31.5 pg (27.0-31.2); Mean Corpuscular Volume 97.8 fl (81-99); Mean Platelet Volume 8.4 fl (7.4-10.4); Monocytes # 0.6 K/mm3 (0.1-1.0); Monocytes % 4.5 % (1.7-9.3); Neutrophils # 10.4 K/mm3 (1.8-7.8); Neutrophils % 84.6 % (37.0-80.0); Platelet Count 228 K/mm3 (142-424); Red Blood Count 4.66 M/mm3 (4.20-5.40); Red Cell Distribution Width 14.3 % (11.5-17.5); White Blood Count 12.3 K/mm3 (4.8-10.8)
[2023-11-28 10:05] LABS: Alanine Aminotransferase 51 U/L (12-78); Albumin Level 3.9 g/dl (3.5-5.0); Alkaline Phosphatase 67 U/L (38-126); Anion Gap 9.7 mEq/L (5-15); Aspartate Amino Transferase 36 U/L (14-36); Bilirubin,Total 0.8 mg/dl (0.2-1.3); Blood Urea Nitrogen 7 mg/dl (7-17); Carbon Dioxide 24 mmol/L (22.0-30.0); Chloride 104 mmol/L (98-107); Creatinine Clearance Estimated 12 mL/min (50-200); Estimated Glomerular Filt Rate 66 ml/min (>60); GFR (African American) 80 ML/MIN (>60); Glucose 104 mg/dl (74-100); Potassium 3.7 mmoL/L (3.5-5.1); Sodium 134 mmol/L (136-145); Total Protein,Serum 7.9 g/dl (6.3-8.2)
[2023-11-28 10:06] LABS: Lactic Acid 0.8 mmol/L (0.7-2.1)
[2023-11-28 10:07] LABS: Microscopic, Urine URINE MICROSCOPIC (MICROSCOPIC)
[2023-11-28 10:08] LABS: Appearance,Urine CLEAR (Clear); Blood, Urine 1+ (Negative); Color,Urine YELLOW (Yellow); Glucose,Urine (UA) Negative (Negative); Ketones,Urine 2+ (Negative); Leukocyte Esterase,Urine Negative (Negative); Nitrate,Urine Negative (Negative); Protein,Urine Negative (Negative); Specific Gravity, Urine 1.015 (1.005-1.030); Urobilinogen,Urine 0.2 EU/dl (0.2)
[2023-11-28 10:10] LABS: C-Reactive Protein 228.1 mg/L (0-4)
[2023-11-28 10:11] LABS: D-Dimer 0.69 ug/mL (0.0-0.5)
[2023-11-28 10:11] LABS: Bilirubin,Urine 1+ (Negative)
[2023-11-28 10:16] LABS: Bacteria,Urine Trace /lpf; RBC,Urine Occasional #/hpf (0-3)
--- NOTE | 2023-11-28 10:20 | PC.NURSE ---
Dr. Shay at [facility]
[2023-11-28 10:25] LABS: Procalcitonin 0.227 ng/mL (0.0-2.0)
--- NOTE | 2023-11-28 10:29 | CT_ITS ---
PROCEDURE INFORMATION: Exam: CT Abdomen And Pelvis Without Contrast Exam date and time: 11/28/2023 10:43 AM Age: 48 years old Clinical indication: Other: Hematuria; Additional info: Fever, hematura, h/o kidney stones TECHNIQUE: Imaging protocol: Computed tomography of the abdomen and pelvis without contrast. Radiation optimization: All CT scans at this facility use at least one of these dose optimization techniques: automated exposure control; mA and/or kV adjustment per patient size (includes targeted exams where dose is matched to clinical indication); or iterative reconstruction. COMPARISON: CT ABDOMEN PELVIS WO CON 06/05/2023 8:21 PM FINDINGS: Lungs: There is streaky atelectasis noted. Liver: The liver is diffusely hypodense compatible with fatty infiltration with areas of focal sparing. A capsular calcification is noted along the posterior right hepatic lobe. Gallbladder and biliary ducts: The gallbladder is relatively contracted. Pancreas: Normal. No ductal dilation. Spleen: Normal. No splenomegaly. Adrenal glands: Normal. No mass. Kidneys and ureters: The kidneys are normal in size and contour without hydronephrosis or nephrolithiasis. Stomach and bowel: There is no evidence for small bowel obstruction. Stool scattered throughout the colon. Appendix: No evidence of appendicitis. Intraperitoneal space: Unremarkable. No free air. No significant fluid collection. Vasculature: Unremarkable. No abdominal aortic aneurysm. Lymph nodes: There is mild right inguinal lymphadenopathy measuring up to 31 mm in maximum dimension. Please correlate clinically and with physical examination. Urinary bladder: The urinary bladder is contracted. Reproductive: Unremarkable as visualized. Bones/joints: Degenerative changes are noted within the bones. Soft tissues: Unremarkable. Other findings: Noncontrast technique limits assessment. IMPRESSION: Limited noncontrast CT. No evidence for urolithiasis or obstructive uropathy. Fatty liver with areas of focal sparing. Mild nonspecific/indeterminate right inguinal lymphadenopathy. Please correlate clinically and with physical examination.
[2023-11-28 10:37] LABS: Erythrocyte Sedimentation Rate 44 mm/hr (0-20)
[2023-11-28] MEDS: LACTATED RINGERS 1000ML 1,640 ML 820 ML IV (10:38)
--- NOTE | 2023-11-28 10:49 | PC.NURSE ---
Pt provided with pillow and blanket. No other needs voiced at this time.
[2023-11-28] MEDS: METOCLOPRAMIDE HCL 10MG/2ML VIAL 5 MG IVP (11:01)
[2023-11-28] MEDS: diphenhydrAMINE 50MG/ML VIAL 25 MG IV (11:01)
[2023-11-28] MEDS: DEXAMETHASONE 4MG/ML 1ML VIAL 10 MG IV (11:02)
[2023-11-28] MEDS: CEFTRIAXONE SODIUM 2 GM in 0.9 % SODIUM CHLORIDE 100 ML IV (12:00)
[2023-11-28] MEDS: VANCOMYCIN/WATER FOR INJ (PEG) 1.75 GM/350 ML PIGGYBACK IV (12:08)
--- NOTE | 2023-11-28 12:12 | PC.NURSE ---
on phone with hospitalist
--- NOTE | 2023-11-28 12:16 | P.HP_ITS ---
History of Present Illness *Admission Date: 11/28/23 *Reason for visit:: Leg pain, chills *History of present illness: Ms. John is a 48-year-old female with history of hypertension and prior reaction to HCTZ versus cellulitis earlier this year on weekend. She presented to the ER for onset of redness, warmth, pain in the right leg over the past 2 to 3 days. Has had some chills and headache for the past week. Rash has progressed, developed fever 48 hours ago to 101. Also having nausea over the past 48 hours. Denies any chest pain or shortness of breath. No confusion, syncope, encephalopathy. Workup in the ER including CT and labs show leukocytosis, tachycardia, lymphadenopathy in right inguinal region. Meeting criteria for sepsis. Started on ceftriaxone and vancomycin. Medicine consulted for admission and further treatment of sepsis and erysipelas. [facility] Disclaimer: The information contained in this section may have been updated after the patient was seen, as this information can be updated by other users. Medical History Depression Anxiety Family History Other No significant family history Social History Smoking Status: Former smoker alcohol intake: current alcohol intake frequency: a few times a month substance use type: denies use current occupational status: employed Travel in the last 8 weeks: Inside the [facility] ([place]) household members: family housing: house Meds Home Medications and Allergies Home Medications ?Medication ?Instructions ?Recorded ?Confirmed ?Type No Known Home Medications 11/28/23 11/28/23 History New Prescriptions to Start Prescriptions: Allergies Allergy/AdvReac Type Severity Reaction Status Date / Time escitalopram [From Lexapro] Allergy Verified 08/22/23 10:23 hydrochlorothiazide Allergy Verified 08/22/23 10:23 scallops Allergy Verified 09/22/18 12:44 sesame seed Allergy Verified 09/22/18 12:44 shrimp Allergy Verified 09/22/18 12:44 soy Allergy Verified 09/22/18 12:44 tree nut Allergy Verified 08/22/23 10:23 wheat Allergy Verified 09/22/18 12:44 Exam Data for Last 24 hours Vital signs and Labs for Last 24 Hours: Temp Pulse Resp BP Pulse Ox O2 Del Method 99.8 F H 74 16 112/61 93 L Room Air 11/28/23 09:25 11/28/23 12:00 11/28/23 09:25 11/28/23 12:00 11/28/23 12:00 11/28/23 12:00 Laboratory Results - last 24 hr 11/28/23 09:46: WBC 12.3 H, RBC 4.66, Hgb 14.7, Hct 45.6, MCV 97.8, MCH 31.5 H, MCHC 32.2, RDW 14.3, Plt Count 228, MPV 8.4, Neut % (Auto) 84.6 H, Lymph % (Auto) 9.6 L, [place] % (Auto) 4.5, Eos % (Auto) 0.9, Baso % (Auto) 0.4, Neut # (Auto) 10.4 H, Lymph # (Auto) 1.2, [place] # (Auto) 0.6, Eos # (Auto) 0.1, Baso # (Auto) 0.1, ESR 44 H, D-Dimer 0.69 H, Sodium 134 L, Potassium 3.7, Chloride 104, Carbon Dioxide 24, Anion Gap 9.7, BUN 7, Creatinine 0.90, Estimated Creat Clear 12, Estimated GFR 66, Est GFR ( Amer) 80, Glucose 104 H, Lactate 0.8, Calcium 9.0, Total Bilirubin 0.8, AST 36, ALT 51, Alkaline Phosphatase 67, C- Reactive Protein 228.1 H, Total Protein 7.9, Albumin 3.9, Globulin 4.0 H, Albumin/Globulin Ratio 1.0 L, Procalcitonin 0.227 11/28/23 09:54: SARS-CoV-2 (PCR) Not detected, Influenza A Untype (PCR) Not detected, Influenza Type B (PCR) Not detected 11/28/23 09:59: Urine Color Yellow, Urine Appearance Clear, Urine pH 6.0, Ur Specific [place] 1.015, Urine Protein Negative, Urine Glucose (UA) Negative, Urine Ketones 2+, Urine Blood 1+ A, Urine Nitrate Negative, Urine Bilirubin 1+ A , Urine Urobilinogen 0.2, Ur Leukocyte Esterase Negative, Urine RBC Occasional, Urine WBC None, Ur Squamous Epith Cells 3-5, Urine Bacteria Trace I & O for Last 24 hours: Intake & Output 11/25/23 11/26/23 11/27/23 11/28/23 23:59 23:59 23:59 23:59 Weight 100.698 kg Constitutional Constitutional: no acute distress, obese and cooperative *Routine HEENT Exam Head: Present normocephalic Eye: Present EOMI and PERRL ENT: Present mucous membranes moist *Routine Neck Exam Neck: Present supple; Absent lymphadenopathy *Routine Respiratory Exam Respiratory: Present CTA bilaterally *Routine Cardiovascular Exam Cardiovascular: Present RRR *Routine Abdominal Exam Abdominal: Present soft and normoactive bowel sounds; Absent tenderness *Routine Rectal Exam Rectal:: deferred *Routine Genitalia Exam Genitalia:: deferred *Routine Extremities Exam Extremities: Absent cyanosis, clubbing or edema *Routine Skin Exam Skin: Present warm and rash Comments: Erythema on right leg, well-demarcated. 3 spots, 1 spanning portion of posterior right thigh. Warm and tender to palpation. Mild redness of distal right lower extremity that is tender and warm. *Routine Neurological Exam Neurological: Present alert, oriented X3 and moving all extremities; Absent altered mental status Assessment and Plan *Assessment and plan (1) Sepsis: Status: Acute Category: Medical Code(s): A41.9 - Sepsis, unspecified organism (2) Erysipelas: Status: Acute Category: Medical Code(s): A46 - Erysipelas (3) Hematuria: Status: Acute Category: Medical Code(s): R31.9 - Hematuria, unspecified (4) Class 3 obesity: Status: Acute Category: Medical Code(s): E66.01 - Morbid (severe) obesity due to excess calories Plan 48-year-old female who presents with a week of malaise. Onset of worsening rash over the past 48 hours. Having nausea for the past few days. Discussed case with ER physician, request admission for treatment of erysipelas and sepsis given tachycardia, leukocytosis, source of infection with rash. Cultures obtained. I agreed to admit for further management. Problems addressed as follows: Erysipelas Sepsis -Rash well-demarcated, warm to touch. White count 12.3. Inflammatory markers elevated with ESR 44, CRP 228. Repeat CBC, CMP, magnesium ordered for the morning. Repeat CRP ordered for the morning. -Previous infection earlier this year on same leg. Responded to antibiotics. -Initiated on vancomycin and ceftriaxone 2 g daily. Monitoring for toxicity. -CT of abdomen pelvis obtained, per my review has lymphadenopathy in the right inguinal region. Remainder of CT otherwise normal. -Blood cultures obtained and pending. -Marked leading edge of rash, will monitor for regression with antibiotics. Hematuria: 2+ blood in urine. Was not an In-N-Out cath specimen. Has no urinary symptoms at this time. Does have a history of a kidney stone earlier this year. If develops symptoms, will consider repeat urinalysis. CT does not show any stones. Class III obesity complicates all aspects of her care Anticipate 2 midnights at least 48 hours of IV antibiotics to monitor for improvement. Full code Gluten-free diet
--- NOTE | 2023-11-28 12:17 | PC.NURSE ---
Notified dry house attendant of pt admission
--- NOTE | 2023-11-28 12:27 | EXP.PHA.CONS ---
Pharmacy Consult Date: 11/28/23 Time: 12:27 Referring provider: DR. SIDHU Reason for Consult:: VANCOMYCIN DOSING Allergies Allergy/AdvReac Type Severity Reaction Status Date / Time escitalopram [From Lexapro] Allergy Verified 08/22/23 10:23 hydrochlorothiazide Allergy Verified 08/22/23 10:23 scallops Allergy Verified 09/22/18 12:44 sesame seed Allergy Verified 09/22/18 12:44 shrimp Allergy Verified 09/22/18 12:44 soy Allergy Verified 09/22/18 12:44 tree nut Allergy Verified 08/22/23 10:23 wheat Allergy Verified 09/22/18 12:44 Home Medications ?Medication ?Instructions ?Recorded ?Confirmed ?Type No Known Home Medications 11/28/23 11/28/23 History New Prescriptions to Start Prescriptions: Height: 1.63 m Weight: 100.698 kg Laboratory Results:: Laboratory Results - last 24 hr 11/28/23 09:46: WBC 12.3 H, RBC 4.66, Hgb 14.7, Hct 45.6, MCV 97.8, MCH 31.5 H, MCHC 32.2, RDW 14.3, Plt Count 228, MPV 8.4, Neut % (Auto) 84.6 H, Lymph % (Auto) 9.6 L, [place] % (Auto) 4.5, Eos % (Auto) 0.9, Baso % (Auto) 0.4, Neut # (Auto) 10.4 H, Lymph # (Auto) 1.2, [place] # (Auto) 0.6, Eos # (Auto) 0.1, Baso # (Auto) 0.1, ESR 44 H, D-Dimer 0.69 H, Sodium 134 L, Potassium 3.7, Chloride 104, Carbon Dioxide 24, Anion Gap 9.7, BUN 7, Creatinine 0.90, Estimated Creat Clear 12, Estimated GFR 66, Est GFR ( Amer) 80, Glucose 104 H, Lactate 0.8, Calcium 9.0, Total Bilirubin 0.8, AST 36, ALT 51, Alkaline Phosphatase 67, C-Reactive Protein 228.1 H, Total Protein 7.9, Albumin 3.9, Globulin 4.0 H, Albumin/Globulin Ratio 1.0 L, Procalcitonin 0.227 11/28/23 09:54: SARS-CoV-2 (PCR) Not detected, Influenza A Untype (PCR) Not detected, Influenza Type B (PCR) Not detected 11/28/23 09:59: Urine Color Yellow, Urine Appearance Clear, Urine pH 6.0, Ur Specific [place] 1.015, Urine Protein Negative, Urine Glucose (UA) Negative, Urine Ketones 2+, Urine Blood 1+ A, Urine Nitrate Negative, Urine Bilirubin 1+ A, Urine Urobilinogen 0.2, Ur Leukocyte Esterase Negative, Urine RBC Occasional, Urine WBC None, Ur Squamous Epith Cells 3-5, Urine Bacteria Trace Medical History: Medical History (Updated 11/28/23 @ 12:15 by Shonda Shay DO) Depression Anxiety Assessment and Plan Assessment and plan all Dx Assessment and Plan for all problems:: Pharmacokinetic dosing service Objective: Patient: Floor: Age: 48 yo Serum creatinine: 0.90 mg/dL Height: 64.2 Inches Weight (kg): 100.6 Assessment: IBW (kg): 55.16 Dosing wt(kg): 100.6 Estimated Creatinine clearance (ml/min): 65.1 CRCL method: Cockcroft and Gault using ibw(default). Drug selected: Vancomycin Loading dose (mg): Vd (liters): 80.5 (factor used: 0.8 L/kg) Josh (hr-1): 0.058 Half life (hrs): 11.95 CLvanco=?? 4.669 L/hr Recommended dose: 1750 mg Interval: 18 hrs Infusion time (hrs): 2.0 Predicted peak (mcg/mL): 31.7 Predicted trough (mcg/mL): 12.53 Total body weight is being used for vancomycin dosing. Recommendations: Give Vancomycin 1750 mg q 18 hrs with an expected Cpeak of 31.7 mcg/ml and an expected Ctrough of 12.53 mcg/ml AUC 0-24 /ELSA Data: ELSA 0.5 mcg/mL:?? AUC/ELSA:? 999.5 ELSA 1.0 mcg/mL:?? AUC/ELSA:? 499.8 --------- ELSA 1.5 mcg/mL:?? AUC/ELSA:? 333.2 ELSA 2.0 mcg/mL:?? AUC/ELSA:? 249.9 Thank you for the consult, will continue to follow. -BARRY FRANKEL, JOSE LUISD
--- NOTE | 2023-11-28 12:29 | PC.NURSE ---
HERB called reports to Vianney WONG
--- NOTE | 2023-11-28 12:31 | PC.NURSE ---
report called to micky on second floor
--- NOTE | 2023-11-28 12:46 | PC.NURSE ---
arrived by w/c from ED
[2023-11-28] MEDS: VANCOMYCIN CONSULT REQUEST 1 EACH NOTAPPLIC (14:04)
--- NOTE | 2023-11-28 17:46 | PC.NURSE ---
Pt alert and oriented x4. Pt has multiple patches of a red rash that is warm to touch on RLE. It has been drawn around with surgical marker. Pt denies any pain/itching with rash. Pt has had no c/o nausea, vomiting since on floor and has tolerated gluten free meals well. Pt ambulates independently to and from bathroom. at bedside most of shift. Pt resting in bed comfortably with no complaints.
[2023-11-28] MEDS: ACETAMINOPHEN 325MG TAB 650 MG PO (18:30)
[2023-11-29] VITALS: BP 126/72; BP 142/72; PULSE 68; PULSE 81; RESP 16; RESP 18; TEMP 36.6; TEMP 36.8; O2SAT 94; O2SAT 96
[2023-11-29 04:00] VITALS: BMI 40.2
[2023-11-29 05:09] VITALS: BP 142/72; PULSE 81; RESP 18; TEMP 36.6; O2SAT 96
--- NOTE | 2023-11-29 06:10 | PC.NURSE ---
Patient is alert and oriented x4. Throughout the night, patient was observed to have eyes closed, respirations even and unlabored, and no apparent distress. She has not had any complaints this shift. Patient's rash to the right lower extremity was observed to be red, raised, and warm to touch; rash has not increased outside of the marker border. Patient's lung sounds were clear and bowel sounds were active upon auscultation. Lab called this morning and confirmed blood culture results; gram positive clusters of cocci were present. Patient is currently resting in bed. No acute changes noted at this time. Call light within reach.
[2023-11-29] MEDS: VANCOMYCIN/WATER FOR INJ (PEG) 1.75 GM/350 ML PIGGYBACK IV ×2 (06:35→23:35)
[2023-11-29] MEDS: ACETAMINOPHEN 325MG TAB 650 MG PO (06:45)
[2023-11-29 07:58] LABS: Basophils % 0.2 % (0.1-2.0); Hematocrit 43.1 % (37.0-47.0); Hemoglobin 13.6 g/dL (12.2-16.2); Lymphocytes # 1.3 K/mm3 (0.7-4.5); Lymphocytes % 8.8 % (10-50); Mean Corpuscular HGB Conc 31.5 g/dL (31.8-35.4); Mean Corpuscular Hemoglobin 31.3 pg (27.0-31.2); Mean Corpuscular Volume 99.5 fl (81-99); Mean Platelet Volume 8.8 fl (7.4-10.4); Monocytes # 0.7 K/mm3 (0.1-1.0); Monocytes % 5.1 % (1.7-9.3); Neutrophils # 12.1 K/mm3 (1.8-7.8); Neutrophils % 85.8 % (37.0-80.0); Platelet Count 234 K/mm3 (142-424); Red Blood Count 4.33 M/mm3 (4.20-5.40); Red Cell Distribution Width 14.3 % (11.5-17.5); White Blood Count 14.1 K/mm3 (4.8-10.8)
[2023-11-29 08:00] VITALS: BP 149/69; PULSE 81; RESP 18; TEMP 36.9; O2SAT 94
[2023-11-29 08:09] LABS: MANUAL DIFFERENTIAL MANUAL DIFFERENTIAL (MANUAL DIFF)
[2023-11-29 08:17] LABS: Alanine Aminotransferase 47 U/L (12-78); Albumin Level 3.5 g/dl (3.5-5.0); Albumin/Globulin Ratio 0.9 (1.1-1.8); Alkaline Phosphatase 64 U/L (38-126); Aspartate Amino Transferase 35 U/L (14-36); Bilirubin,Total 0.4 mg/dl (0.2-1.3); Blood Urea Nitrogen 10 mg/dl (7-17); Calcium 9.1 mg/dl (8.4-10.2); Carbon Dioxide 26 mmol/L (22.0-30.0); Chloride 106 mmol/L (98-107); Creatinine Clearance Estimated 162 mL/min (50-200); Estimated Glomerular Filt Rate 89 ml/min (>60); GFR (African American) 107 ML/MIN (>60); Globulin 3.9 g/dL (1.3-3.2); Glucose 162 mg/dl (74-100); Sodium 137 mmol/L (136-145); Total Protein,Serum 7.4 g/dl (6.3-8.2)
[2023-11-29 08:22] LABS: C-Reactive Protein 147.9 mg/L (0-4)
[2023-11-29 09:45] LABS: Lymphocytes % 4 % (10-50); Monocytes % 5 % (2-9); Neutrophils % 91 % (42-76); Platelet Estimate Normal; RBC Morphology Normal; Total Cells Counted 100
--- NOTE | 2023-11-29 11:00 | EXP.ACUTE.PN ---
Subjective *Date: 11/29/23 *Time: 12:20 Interval history: Feeling better today. No chest pain or shortness of breath. Still has some pain in lesion on posterior thigh but no fever or chills overnight. Tolerating good p.o. intake. Stable on room air. Medical Exam Vital signs and Labs for Last 24 Hours: Vital Signs Temp Pulse Pulse Resp BP BP Pulse Ox 11/29/23 09:00 11/29/23 08:00 98.4 F 81 18 149/69 H 94 L 11/29/23 08:00 11/29/23 07:00 11/29/23 05:09 97.8 F 81 18 142/72 H 96 11/29/23 05:00 11/29/23 03:00 11/29/23 01:00 11/29/23 00:00 97.8 F 81 18 142/72 H 96 11/29/23 00:00 98.2 F 68 16 126/72 94 L 11/28/23 23:00 11/28/23 21:00 11/28/23 20:00 73 20 95 11/28/23 18:43 11/28/23 16:34 11/28/23 16:00 98.1 F 73 20 141/81 H 95 11/28/23 14:14 11/28/23 14:06 11/28/23 13:00 11/28/23 12:58 98.3 F 74 18 112/61 91 L 11/28/23 12:47 98.0 F 74 13 112/61 11/28/23 12:00 74 112/61 93 L 11/28/23 11:01 80 100/69 L 95 O2 Del Method 11/29/23 09:00 Room Air 11/29/23 08:00 Room Air 11/29/23 08:00 Room Air 11/29/23 07:00 Room Air 11/29/23 05:09 Room Air 11/29/23 05:00 Room Air 11/29/23 03:00 Room Air 11/29/23 01:00 Room Air 11/29/23 00:00 Room Air 11/29/23 00:00 Room Air 11/28/23 23:00 Room Air 11/28/23 21:00 Room Air 11/28/23 20:00 Room Air 11/28/23 18:43 Room Air 11/28/23 16:34 Room Air 11/28/23 16:00 Room Air 11/28/23 14:14 Room Air 11/28/23 14:06 Room Air 11/28/23 13:00 Room Air 11/28/23 12:58 Room Air 11/28/23 12:47 11/28/23 12:00 Room Air 11/28/23 11:01 Room Air Intake and Output 11/28/23 11/29/23 11/29/23 23:59 07:59 15:59 Intake Total 120 / 540 420 / 540 Balance 120 / 540 420 / 540 Intake: Intake, Oral Amount 120 / 540 420 / 540 Other: Number of Unmeasured Voids 1 Weight 106.866 kg Patient Weight 11/29/23 23:59 Weight 106.866 kg Laboratory Results - last 24 hr 11/29/23 06:40: WBC 14.1 H, RBC 4.33, Hgb 13.6, Hct 43.1, MCV 99.5 H, MCH 31.3 H, MCHC 31.5 L, RDW 14.3, Plt Count 234, MPV 8.8, Neut % (Auto) 85.8 H, Lymph % (Auto) 8.8 L, [place] % (Auto) 5.1, Eos % (Auto) 0.0 L, Baso % (Auto) 0.2, Neut # (Auto) 12.1 H, Lymph # (Auto) 1.3, [place] # (Auto) 0.7, Eos # (Auto) 0.0, Baso # (Auto) 0.0, Total Counted 100, Neutrophils % (Manual) 91 H, Lymphocytes % (Manual) 4 L, Monocytes % (Manual) 5, Platelet Estimate Normal, RBC Morphology Normal, Sodium 137, Potassium 4.0, Chloride 106, Carbon Dioxide 26, Anion Gap 9.0, BUN 10 D, Creatinine 0.70 D, Estimated Creat Clear 162, Estimated GFR 89, Est GFR ( Amer) 107 D, Glucose 162 H D, Calcium 9.1, Magnesium 2.0, Total Bilirubin 0.4, AST 35, ALT 47, Alkaline Phosphatase 64, C-Reactive Protein 147.9 H, Total Protein 7.4, Albumin 3.5 D, Globulin 3.9 H, Albumin/Globulin Ratio 0.9 L I & O for Labs for Last 24 Hours: Intake & Output 11/26/23 11/27/23 11/28/23 11/29/23 23:59 23:59 23:59 23:59 Intake Total 250 / 370 540 / 540 Balance 250 / 370 540 / 540 Weight 106.708 kg 106.866 kg Microbiology Reports for the Last 24 Hours: Microbiology 11/28/23 09:55 Blood Blood Culture - Preliminary NO GROWTH AFTER 24 HOURS 11/28/23 09:59 Urine,Clean Catch Urine Culture - Preliminary 11/28/23 09:51 Blood Blood Culture - Preliminary Constitutional: Present no acute distress, obese and cooperative Head: Present atraumatic and normocephalic ENT: Present normal exam Neck: Present normal inspection Respiratory: Present normal respiratory effort; Absent rhonchi, stridor, wheezes or crackles Cardiac: Present Reg Rate and Rhythm GI: Present soft and normal bowel sounds; Absent distention or tenderness Extremities: Present normal inspection and full ROM Skin: Present intact and erythema (Lesions showing regression from leading edge that was marked yesterday. Thigh lesion clean rice grader and reel tender, other lesions not) Neuro: Present Grossly Intact, alert, awake, oriented x 3 and moves all extremities Assessment and Plan *Assessment and plan (1) Sepsis: Status: Acute Category: Medical Code(s): A41.9 - Sepsis, unspecified organism (2) Erysipelas: Status: Acute Category: Medical Code(s): A46 - Erysipelas (3) Hematuria: Status: Acute Category: Medical Code(s): R31.9 - Hematuria, unspecified (4) Class 3 obesity: Status: Acute Category: Medical Code(s): E66.01 - Morbid (severe) obesity due to excess calories Plan 48-year-old female who presents with a week of malaise. Onset of worsening rash over the past 48 hours. Having nausea for the past few days. Discussed case with ER physician, request admission for treatment of erysipelas and sepsis given tachycardia, leukocytosis, source of infection with rash. Cultures obtained. I agreed to admit for further management. Show response to antibiotics. Rash somewhat improving. Continues to require inpatient management. Problems addressed as follows: Erysipelas Sepsis -Rash well-demarcated, warm to touch. Showing improvement. White count slightly increased from yesterday at 14. Inflammatory markers including CRP down to 147 from 228. - Repeat CBC, CMP, magnesium ordered for the morning. Repeat CRP ordered for the morning. -Previous infection earlier this year on same leg. Responded to antibiotics. -Continue IV vancomycin and ceftriaxone 2 g daily. Blood culture still pending. Monitoring for toxicity. -CT of abdomen pelvis obtained, per my review has lymphadenopathy in the right inguinal region. Remainder of CT otherwise normal. -Marked leading edge of rash, will monitor for regression with antibiotics. Hematuria: 2+ blood in urine. Was not an In-N-Out cath specimen. Has no urinary symptoms at this time. Does have a history of a kidney stone earlier this year. If develops symptoms, will consider repeat urinalysis. CT does not show any stones. Class III obesity complicates all aspects of her care Anticipate 2 midnights at least 48 hours of IV antibiotics to monitor for improvement. Full code Gluten-free diet
[2023-11-29] MEDS: CEFTRIAXONE SODIUM 2 GM in 0.9 % SODIUM CHLORIDE 100 ML IV (11:04)
[2023-11-29 16:00] VITALS: BP 145/78; PULSE 69; RESP 16; TEMP 36.9; O2SAT 96
--- NOTE | 2023-11-29 18:30 | PC.NURSE ---
pt is currently resting supine in bed. lung sounds clear, bowel sounds active, VSS. pt has been ambulating independently and has tolerated well with no complaints. she recieved abx per mar this shift, and has not required any PRN nausea or pain meds. rash noted on the right thigh/calf area has not spread beyond the outline that previous shift made. pt has complained of slight pain in the rash area, but does not feel as though it requires medication. has been at bedside majority of the shift and multiple visitors have come. pt has no complaints at this time. call light within reach
[2023-11-29 19:33] VITALS: BP 150/79; PULSE 71; RESP 16; TEMP 36.9; O2SAT 94
[2023-11-29 21:00] VITALS: O2SAT 94
[2023-11-30] VITALS: BP 149/81; PULSE 59; RESP 17; TEMP 36.5; O2SAT 98
[2023-11-30] MEDS: KETOROLAC 30MG/ML VIAL 30 MG IV (00:53)
[2023-11-30] MEDS: MELATONIN 5MG TABLET 10 MG PO (01:40)
[2023-11-30 03:58] VITALS: BP 148/79; PULSE 64; RESP 18; TEMP 36.6; O2SAT 97; BMI 40.8
--- NOTE | 2023-11-30 05:05 | PC.NURSE ---
Patient alert and oriented x4 this shift. Tolerating room air well. Patient had complaints of insomnia tonight along with pain to the areas of rash on RLE. States she frequently takes Melatonin at home. Antibiotics, Toradol, and Melatonin administered per MAR. Rash has not spread outside of lined area on patients leg, but states the rash has become hardened and sore in a few areas. Patient has ambulated to/from restroom and the halls independently a few times this shift and has tolerated well. Patient resting with eyes closed at this time. Call light within reach.
[2023-11-30 06:21] LABS: Basophils % 0.4 % (0.1-2.0); Eosinophils # 0.1 K/mm3 (0.0-0.4); Eosinophils % 1.6 % (0.1-12.0); Lymphocytes # 2.3 K/mm3 (0.7-4.5); Lymphocytes % 29.9 % (10-50); Mean Corpuscular HGB Conc 31.6 g/dL (31.8-35.4); Mean Corpuscular Hemoglobin 31.2 pg (27.0-31.2); Mean Corpuscular Volume 98.7 fl (81-99); Mean Platelet Volume 8.8 fl (7.4-10.4); Monocytes # 0.6 K/mm3 (0.1-1.0); Monocytes % 7.1 % (1.7-9.3); Neutrophils # 4.8 K/mm3 (1.8-7.8); Platelet Count 255 K/mm3 (142-424); Red Blood Count 4.16 M/mm3 (4.20-5.40); Red Cell Distribution Width 14.3 % (11.5-17.5); White Blood Count 7.9 K/mm3 (4.8-10.8)
[2023-11-30 06:25] LABS: Albumin Level 3.4 g/dl (3.5-5.0); Chloride 109 mmol/L (98-107); Potassium 3.8 mmoL/L (3.5-5.1); Sodium 139 mmol/L (136-145)
[2023-11-30 06:28] LABS: Alanine Aminotransferase 46 U/L (12-78); Alkaline Phosphatase 61 U/L (38-126); Anion Gap 6.8 mEq/L (5-15); Aspartate Amino Transferase 37 U/L (14-36); Bilirubin,Total 0.3 mg/dl (0.2-1.3); Blood Urea Nitrogen 14 mg/dl (7-17); Calcium 8.3 mg/dl (8.4-10.2); Carbon Dioxide 27 mmol/L (22.0-30.0); Creatinine Clearance Estimated 144 mL/min (50-200); Estimated Glomerular Filt Rate 76 ml/min (>60); GFR (African American) 92 ML/MIN (>60); Globulin 3.3 g/dL (1.3-3.2); Glucose 105 mg/dl (74-100); Total Protein,Serum 6.7 g/dl (6.3-8.2)
--- NOTE | 2023-11-30 07:37 | P.DS_ITS ---
General Admission date:: 11/28/23 Discharge date: 11/30/23 HPI HPI HPI: Ms. John is a 48-year-old female with history of hypertension and prior reaction to HCTZ versus cellulitis earlier this year on weekend. She presented to the ER for onset of redness, warmth, pain in the right leg over the past 2 to 3 days. Has had some chills and headache for the past week. Rash has progressed, developed fever 48 hours ago to 101. Also having nausea over the past 48 hours. Denies any chest pain or shortness of breath. No confusion, syncope, encephalopathy. Workup in the ER including CT and labs show leukocytosis, tachycardia, lymphadenopathy in right inguinal region. Meeting criteria for sepsis. Started on ceftriaxone and vancomycin. Medicine consulted for admission and further treatment of sepsis and erysipelas. Hospital Course Hospital Course Hospital Course: 48-year-old female who presents with a week of malaise. Onset of worsening rash over the past 48 hours. Having nausea for the past few days. Discussed case with ER physician, request admission for treatment of erysipelas and sepsis given tachycardia, leukocytosis, source of infection with rash. Cultures obtained. I agreed to admit for further management. Show response to antibiotics. Rash somewhat improving. Continues to require inpatient management. Problems addressed as follows: Erysipelas Sepsis -Rash well-demarcated, warm to touch. Concern for cellulitis versus erysipelas. Inflammatory markers severely elevated on admission with CRP of 228, decreased to 147 and 24 hours down to 60 on day of discharge. White count normalized to 7.4 from peak of 14. Patient has been afebrile for over 48 hours. No nausea or vomiting. Overall doing better. Initiated on vancomycin and ceftriaxone. Tolerated well. Will transition to 2 double strength Bactrim twice daily given her weight greater than 70 kegs to complete 7 days of therapy for treatment of erysipelas. Cultures remain negative at discharge: Single bottle growing gram- positive cocci at approximately 24 hours. Other 3 bottles negative at over 48 hours. Suspect contaminant. Showing improvement. White count slightly increased from yesterday at 14. Inflammatory markers including CRP down to 147 from 228. -Previous infection earlier this year on same leg. Responded to antibiotics. -CT of abdomen pelvis obtained, per my review has lymphadenopathy in the right inguinal region. Remainder of CT otherwise normal. Hematuria: 2+ blood in urine. Was not an In-N-Out cath specimen. Has no urinary symptoms at this time. Does have a history of a kidney stone earlier this year. If develops symptoms, will consider repeat urinalysis. CT does not show any stones. Class III obesity complicates all aspects of her care Gluten intolerance. Rash does not look like dermatitis herpetiformis however may be a complicating factor given all of her allergies. Consider further workup as an outpatient for formal diagnosis of celiac and evaluation by rheumatology. Total time spent on discharge 32 minutes in counseling, documentation, chart review, and direct care with patient. Exam Data for Last 24 hours Vital signs and Labs for Last 24 Hours: Temp Pulse Resp BP Pulse Ox O2 Del Method 97.8 F 64 18 148/79 H 97 Room Air 11/30/23 03:58 11/30/23 03:58 11/30/23 03:58 11/30/23 03:58 11/30/23 03:58 11/30/23 07:00 Laboratory Results - last 24 hr 11/29/23 06:40: WBC 14.1 H, RBC 4.33, Hgb 13.6, Hct 43.1, MCV 99.5 H, MCH 31.3 H , MCHC 31.5 L, RDW 14.3, Plt Count 234, MPV 8.8, Neut % (Auto) 85.8 H, Lymph % (Auto) 8.8 L, [place] % (Auto) 5.1, Eos % (Auto) 0.0 L, Baso % (Auto) 0.2, Neut # (Auto) 12.1 H, Lymph # (Auto) 1.3, [place] # (Auto) 0.7, Eos # (Auto) 0.0, Baso # (Auto) 0.0, Total Counted 100, Neutrophils % (Manual) 91 H, Lymphocytes % (Manual) 4 L, Monocytes % (Manual) 5, Platelet Estimate Normal, RBC Morphology Normal, Sodium 137, Potassium 4.0, Chloride 106, Carbon Dioxide 26, Anion Gap 9.0, BUN 10 D, Creatinine 0.70 D, Estimated Creat Clear 162, Estimated GFR 89, Est GFR ( Amer) 107 D, Glucose 162 H D, Calcium 9.1, Magnesium 2.0, Total Bilirubin 0.4, AST 35, ALT 47, Alkaline Phosphatase 64, C-Reactive Protein 147.9 H, Total Protein 7.4, Albumin 3.5 D, Globulin 3.9 H, Albumin/Globulin Ratio 0.9 L 11/30/23 05:52: WBC 7.9 D, RBC 4.16 L, Hgb 13.0, Hct 41.0, MCV 98.7, MCH 31.2, MCHC 31.6 L, RDW 14.3, Plt Count 255, MPV 8.8, Neut % (Auto) 61.0, Lymph % (Auto) 29.9, [place] % (Auto) 7.1, Eos % (Auto) 1.6, Baso % (Auto) 0.4, Neut # (Auto) 4.8, Lymph # (Auto) 2.3, [place] # (Auto) 0.6, Eos # (Auto) 0.1, Baso # (Auto) 0.0, Sodium 139, Potassium 3.8, Chloride 109 H, Carbon Dioxide 27, Anion Gap 6.8, BUN 14 D, Creatinine 0.80, Estimated Creat Clear 144, Estimated GFR 76, Est GFR ( Amer) 92, Glucose 105 H D, Calcium 8.3 L, Magnesium 2.0, Total Bilirubin 0.3, AST 37 H, ALT 46, Alkaline Phosphatase 61, C-Reactive Protein 60.0 H D, Total Protein 6.7, Albumin 3.4 L, Globulin 3.3 H, Albumin/Globulin Ratio 1.0 L I & O for Last 24 hours: Intake & Output 11/27/23 11/28/23 11/29/23 11/30/23 23:59 23:59 23:59 23:59 Intake Total 250 / 370 1400 / 1400 Output Total 0 / 0 0 / 0 Balance 250 / 370 1400 / 1400 0 / 0 Weight 106.708 kg 106.866 kg 108.363 kg Microbiology Reports for the Last 24 Hours: Microbiology 11/28/23 09:55 Blood Blood Culture - Preliminary NO GROWTH AFTER 24 HOURS 11/28/23 09:59 Urine,Clean Catch Urine Culture - Preliminary 11/28/23 09:51 Blood Blood Culture - Preliminary Constitutional Constitutional: no acute distress, obese and cooperative *Routine HEENT Exam Head: Present normocephalic Eye: Present EOMI and PERRL ENT: Present mucous membranes moist *Routine Neck Exam Neck: Present supple; Absent lymphadenopathy *Routine Respiratory Exam Respiratory: Present CTA bilaterally; Absent rhonchi, stridor, wheezes or crackles *Routine Cardiovascular Exam Cardiovascular: Present RRR *Routine Abdominal Exam Abdominal: Present soft and normoactive bowel sounds; Absent tenderness *Routine Rectal Exam Patient deferred: visual exam *Routine Exam Patient deferred: external exam *Routine Extremities Exam Extremities: Absent cyanosis, clubbing or edema *Routine Skin Exam Skin: Present erythema, warm and rash Comments: Erythematous lesions on right leg showing some improvement. Decreasing in intensity. Decrease tenderness. Erythema dispersing. No warmth *Routine Neurological Exam Neurological: Present alert, oriented X3 and moving all extremities; Absent altered mental status Results Data Completed and Pending Labs on day of discharge: Labs from last 24 hours 11/30/23 11/29/23 05:52 06:40 WBC 7.9 D 14.1 H RBC 4.16 L 4.33 Hgb 13.0 13.6 Hct 41.0 43.1 MCV 98.7 99.5 H MCH 31.2 31.3 H MCHC 31.6 L 31.5 L RDW 14.3 14.3 Plt Count 255 234 MPV 8.8 8.8 Neut % (Auto) 61.0 85.8 H Lymph % (Auto) 29.9 8.8 L [place] % (Auto) 7.1 5.1 Eos % (Auto) 1.6 0.0 L Baso % (Auto) 0.4 0.2 Neut # (Auto) 4.8 12.1 H Lymph # (Auto) 2.3 1.3 [place] # (Auto) 0.6 0.7 Eos # (Auto) 0.1 0.0 Baso # (Auto) 0.0 0.0 Total Counted 100 Neutrophils % (Manual) 91 H Lymphocytes % (Manual) 4 L Monocytes % (Manual) 5 Platelet Estimate Normal RBC Morphology Normal Sodium 139 137 Potassium 3.8 4.0 Chloride 109 H 106 Carbon Dioxide 27 26 Anion Gap 6.8 9.0 BUN 14 D 10 D Creatinine 0.80 0.70 D Estimated Creat Clear 144 162 Estimated GFR 76 89 Est GFR ( Amer) 92 107 D Glucose 105 H D 162 H D Calcium 8.3 L 9.1 Magnesium 2.0 2.0 Total Bilirubin 0.3 0.4 AST 37 H 35 ALT 46 47 Alkaline Phosphatase 61 64 C-Reactive Protein 60.0 H D 147.9 H Total Protein 6.7 7.4 Albumin 3.4 L 3.5 D Globulin 3.3 H 3.9 H Albumin/Globulin Ratio 1.0 L 0.9 L Preliminary micro results at discharge 11/28/23 09:55 Blood Culture - Preliminary Blood NO GROWTH AFTER 24 HOURS 11/28/23 09:59 Urine Culture - Preliminary Urine,Clean Catch 11/28/23 09:51 Blood Culture - Preliminary Blood DS: Diagnosis Discharge Diagnosis (1) Sepsis: Status: Acute Code(s): A41.9 - Sepsis, unspecified organism (2) Erysipelas: Status: Acute Code(s): A46 - Erysipelas (3) Hematuria: Status: Acute Code(s): R31.9 - Hematuria, unspecified (4) Class 3 obesity: Status: Acute Code(s): E66.01 - Morbid (severe) obesity due to excess calories Meds Home Medications and Allergies Home Medications ?Medication ?Instructions ?Recorded ?Confirmed ?Type ondansetron HCl 4 mg tablet 4 mg PO Q8H PRN nausea and 11/30/23 Rx vomiting #14 tabs sulfamethoxazole 800 2 tab PO BID 5 days #20 tabs 11/30/23 Rx mg-trimethoprim 160 mg tablet (Bactrim DS) New Prescriptions to Start Prescriptions: ondansetron HCl Jesus Anderson sulfamethoxazole-trimethoprim [Bactrim DS] Jesus Anderson Allergies Allergy/AdvReac Type Severity Reaction Status Date / Time escitalopram [From Lexapro] Allergy Verified 08/22/23 10:23 hydrochlorothiazide Allergy Verified 08/22/23 10:23 scallops Allergy Verified 09/22/18 12:44 sesame seed Allergy Verified 09/22/18 12:44 shrimp Allergy Verified 09/22/18 12:44 soy Allergy Verified 09/22/18 12:44 tree nut Allergy Verified 08/22/23 10:23 wheat Allergy Verified 09/22/18 12:44 Discharge Plan Disposition Patient Disposition: Home, Self-Care Condition: Good Follow up Plan Follow up with: Stu Ballard MD [Staff Physician] - Enter time for follow up Prescriptions/Medication Reconciliation: New sulfamethoxazole-trimethoprim [Bactrim DS] 800-160 mg tablet 2 tab PO BID 5 Days Qty: 20 0RF ondansetron HCl 4 mg tablet 4 mg PO Q8H PRN (Reason: nausea and vomiting) Qty: 14 0RF Problem Reconciliation Problems Reviewed?: Yes Patient Discharge Instructions ACTIVITY: Continue current activity DIET: continue same diet Patient Instructions: DI for Sepsis -- Adult, DI for Erysipelas, Erysipelas Print Language: Occitan Providers Primary Care Provider: Provider,Referral Admit Provider: Jesus Anderson Attending Provider: Jesus Anderson
[2023-11-30 08:00] VITALS: BP 148/88; PULSE 56; RESP 20; TEMP 36.6; O2SAT 97
--- NOTE | 2023-12-01 14:19 | CARE MANAGER ---
Contacted patient related to hospital discharge. She states she is doing better than she was. She is taking her medication as ordered and I transferred her to Dr. Ballard's office to schedule follow up appointment. MARVIN Joseph
== END 2023-11-30 10:13 | disposition home or self-care (01) ==
LOC: ER 12:11 → 2ND 12:26
PROVIDERS: Admitting Provider Internal Medicine Adolescent Medicine; Emergency Provider Emergency Medicine; Visit Provider Internal Medicine Adolescent Medicine
DX: A41.9 Sepsis, unspecified organism (principal); A46 Erysipelas; R31.9 Hematuria, unspecified; D72.829 Elevated white blood cell count, unspecified; R00.0 Tachycardia, unspecified; E66.01 Morbid (severe) obesity due to excess calories; Z68.41 Body mass index [BMI] 40.0-44.9, adult; Z09 Encounter for follow-up examination after completed treatment for conditions other than malignant neoplasm; Z87.891 Personal history of nicotine dependence
CPT/HCPCS: 36415; 74176; 80053; 81001; 83605; 83735; 84145; 85007; 85025; 85378; 85651; 86140; 87040; 87086; 87636; 99285; G0378; J0131; J0696; J1100; J1200; J1885; J2405; J2765; J7120

== ENCOUNTER 2023-12-08 09:17 | Outpatient (CLI) | payer BC, SELFPAY ==
[2023-12-08 18:49] LABS: Basophils # 0.1 K/mm3 (0-0.2); Basophils % 0.9 % (0.1-2.0); Eosinophils # 0.1 K/mm3 (0.0-0.4); Eosinophils % 2.1 % (0.1-12.0); Hematocrit 47.2 % (37.0-47.0); Hemoglobin 14.8 g/dL (12.2-16.2); Lymphocytes # 1.7 K/mm3 (0.7-4.5); Lymphocytes % 27.2 % (10-50); Mean Corpuscular HGB Conc 31.3 g/dL (31.8-35.4); Mean Corpuscular Hemoglobin 31.2 pg (27.0-31.2); Mean Corpuscular Volume 99.7 fl (81-99); Mean Platelet Volume 9.7 fl (7.4-10.4); Monocytes # 0.4 K/mm3 (0.1-1.0); Monocytes % 5.7 % (1.7-9.3); Platelet Count 327 K/mm3 (142-424); Red Blood Count 4.74 M/mm3 (4.20-5.40); Red Cell Distribution Width 14.1 % (11.5-17.5); White Blood Count 6.3 K/mm3 (4.8-10.8)
[2023-12-08 19:02] LABS: Alanine Aminotransferase 47 U/L (12-78); Albumin Level 3.7 g/dl (3.5-5.0); Albumin/Globulin Ratio 1.1 (1.1-1.8); Alkaline Phosphatase 65 U/L (38-126); Anion Gap 10.2 mEq/L (5-15); Aspartate Amino Transferase 36 U/L (14-36); Bilirubin,Total 0.6 mg/dl (0.2-1.3); Blood Urea Nitrogen 12 mg/dl (7-17); Calcium 9.3 mg/dl (8.4-10.2); Carbon Dioxide 23 mmol/L (22.0-30.0); Chloride 109 mmol/L (98-107); Estimated Glomerular Filt Rate 59 ml/min (>60); GFR (African American) 71 ML/MIN (>60); Globulin 3.5 g/dL (1.3-3.2); Glucose 91 mg/dl (74-100); Potassium 4.2 mmoL/L (3.5-5.1); Sodium 138 mmol/L (136-145); Total Protein,Serum 7.2 g/dl (6.3-8.2)
[2023-12-08 19:07] LABS: C-Reactive Protein 7.9 mg/L (0-4)
[2023-12-08 19:33] LABS: Thyroid Stimulating Hormone 2.11 uIU/mL (0.465-4.68)
[2023-12-08 21:00] LABS: Hemoglobin A1C 5.6 % (4.0-6.0)
== END 2023-12-08 23:59 | disposition home or self-care (01) ==
LOC: LAB.DROPOF 12-10 09:17
PROVIDERS: PCP Family Medicine; Visit Provider Family Medicine
DX: R73.09 Other abnormal glucose (principal); E66.01 Morbid (severe) obesity due to excess calories; L03.115 Cellulitis of right lower limb; Z68.39 Body mass index [BMI] 39.0-39.9, adult
CPT/HCPCS: 80050; 80053; 83036; 84443; 85025; 86140

== ENCOUNTER 2024-06-09 05:41 | Observation (INO) | payer BC, SELFPAY ==
[2024-06-09] VITALS (12 sets, daily range): BP systolic 128–165; BP diastolic 69–101; PULSE 87–114; RESP 15–25; TEMP 36.8–37.5; O2SAT 91–100; BMI 38.6
--- NOTE | 2024-06-09 06:00 | PC.NURSE ---
Second set of blood cultures drawn and sent from left forearm
--- NOTE | 2024-06-09 06:12 | ECG_ITS ---
APPROVED REPORT Exam: Resting ECG HR:95 bpm ECG Measurements Heart Rate 95 AXES MN 157 P 30 QRSd 85 QRS 8 QT 330 T 0 QTc 383 Conclusion SINUS RHYTHM LOW QRS VOLTAGE IN PRECORDIAL LEADS [QRS DEFLECTION < 1.0 mV IN CHEST LEADS] BORDERLINE ECG Electronically signed by : LOUIE BETTENCOURT, 06/10/2024 10:52:14
--- NOTE | 2024-06-09 06:31 | XR_ITS ---
FINAL REPORT CLINICAL HISTORY: sepsis COMPARISON: None FINDINGS: The heart size is normal. The mediastinum is normal. There is no focal infiltrate or edema. Minimal chronic changes are noted at the lung bases. There are no pleural effusions. There is no pneumothorax. There is no osseous abnormality. IMPRESSION: Chronic changes without acute cardiopulmonary process Reviewed, Interpreted and Dictated by Maury Hickey MD Transcribed by Celi Doss Authenticated and [facility]
--- NOTE | 2024-06-09 06:39 | CT_ITS ---
FINAL REPORT TECHNIQUE: Thin section axial images were obtained of the right lower extremity. Coronal and sagittal reconstructions obtained and reviewed. This study was performed with techniques to keep radiation doses as low as reasonably achievable, (ALARA). Individualized dose reduction techniques using automated exposure control or adjustment of mA and/or kV according to the patient's size were employed. CLINICAL HISTORY: distal RLE redness, fever, sepsis COMPARISON: None FINDINGS: There is minimal subcutaneous soft tissue edema in the pretibial region. No fluid collections are seen. There is no evidence of bony erosion. No foreign body is identified. No abnormal contrast-enhancement IMPRESSION: Minimal subcutaneous soft tissue edema. Reviewed, Interpreted and Dictated by Maury Hickey MD Transcribed by Celi Doss Authenticated and [facility]
[2024-06-09 06:41] LABS: Basophils # 0.1 K/mm3 (0-0.2); Basophils % 0.4 % (0.1-2.0); Eosinophils % 0.1 % (0.1-12.0); Hematocrit 44.8 % (37.0-47.0); Lymphocytes # 0.9 K/mm3 (0.7-4.5); Lymphocytes % 4.4 % (10-50); Mean Corpuscular HGB Conc 33.5 g/dL (31.8-35.4); Mean Corpuscular Hemoglobin 30.9 pg (27.0-31.2); Mean Corpuscular Volume 92.2 fl (81-99); Mean Platelet Volume 10.7 fl (7.4-10.4); Monocytes # 1.1 K/mm3 (0.1-1.0); Monocytes % 5.6 % (1.7-9.3); Neutrophils # 17.9 K/mm3 (1.8-7.8); Neutrophils % 88.5 % (37.0-80.0); Platelet Count 346 K/mm3 (142-424); Red Blood Count 4.86 M/mm3 (4.20-5.40); Red Cell Distribution Width 12.8 % (11.5-17.5); White Blood Count 20.2 K/mm3 (4.8-10.8)
[2024-06-09 06:45] LABS: MANUAL DIFFERENTIAL MANUAL DIFFERENTIAL (MANUAL DIFF)
[2024-06-09 06:49] LABS: INR 0.92 (0.9-1.1); Prothrombin Time 10.4 seconds (10.1-12.5)
[2024-06-09 06:52] LABS: Alanine Aminotransferase 59 U/L (12-78); Albumin Level 4.8 g/dl (3.5-5.0); Albumin/Globulin Ratio 1.3 (1.1-1.8); Alkaline Phosphatase 66 U/L (38-126); Anion Gap 12.1 mEq/L (5-15); Aspartate Amino Transferase 45 U/L (14-36); Bilirubin,Total 0.9 mg/dl (0.2-1.3); Blood Urea Nitrogen 9 mg/dl (7-17); Calcium 9.6 mg/dl (8.4-10.2); Carbon Dioxide 24 mmol/L (22.0-30.0); Chloride 107 mmol/L (98-107); Creatinine Clearance Estimated 120 mL/min (50-200); Estimated Glomerular Filt Rate 66 ml/min (>60); GFR (African American) 80 ML/MIN (>60); Globulin 3.6 g/dL (1.3-3.2); Glucose 135 mg/dl (74-100); Potassium 4.1 mmoL/L (3.5-5.1); Sodium 139 mmol/L (136-145); Total Protein,Serum 8.4 g/dl (6.3-8.2)
[2024-06-09 06:53] LABS: Lactic Acid 1.7 mmol/L (0.7-2.1)
[2024-06-09] MEDS: VANCOMYCIN CONSULT REQUEST 1 EACH NOTAPPLIC (06:56)
[2024-06-09] MEDS: LACTATED RINGERS 1000ML 1,000 ML 999 ML IV (06:56)
[2024-06-09] MEDS: ONDANSETRON 4MG/2ML VIAL 4 MG IV ×2 (06:56→12:54)
[2024-06-09] MEDS: CLINDAMYCIN PHOSPHATE/D5W 900 MG/50 ML PIGGYBACK 100 MG IV (06:56)
[2024-06-09 07:13] LABS: Microscopic, Urine URINE MICROSCOPIC (MICROSCOPIC)
[2024-06-09 07:16] LABS: Lymphocytes % 5 % (10-50); Monocytes % 1 % (2-9); Neutrophils % 94 % (42-76); Platelet Estimate Normal; RBC Morphology Normal; Total Cells Counted 100
--- NOTE | 2024-06-09 07:20 | ED_ITS ---
Discharge Plan Disposition Patient Disposition: Admitted Condition: Fair Clinical Impressions Clinical Impression: Sepsis Discharge ED Provider: Mika Springer General Adult HPI <Willis Jensen MD - Last Filed: 06/09/24 07:29> General Chief complaint: Nausea/Vomiting/Diarrhea Stated complaint: fever, rash r leg, nausea, vomiting Time Seen by Provider: 06/09/24 06:27 Mode of Arrival: Ambulatory Source of Information: Patient Description of Symptoms (Recalled from ER Triage Doc. by RN): Patient states she had a fever of 104 at home and she took tylenol at 1200 am. States she has headache, chills, nausea, vomiting and a rash on the right leg. States she was septic in the past and this was how previous episode started. History of Present Illness HPI narrative: 48-year-old female presents to the ER with complaints of fevers, headache, chills, nausea, vomiting, rash. She states she had similar symptoms in the past and ended up being hospitalized with sepsis for which they reportedly found no specific source. Patient reports yesterday she generally felt under the weather, she developed fever up to 104 at home. Around midnight she started having nausea and vomiting, nonbloody, nonbilious. She does not have any localizing abdominal pain, diarrhea, or constipation. She states she thought she may be just had a virus, however around 4 AM she noticed that rash started on her right leg and that rash was also present when she was septic and hospitalized. This rash is what prompted her to come to the ER for further evaluation. She did take Tylenol around midnight for fever at that time and arrived in the ER afebrile. She denies cough, chest pain, difficulty breathing, or other associated symptoms at this time. She does report she had flulike illness a few weeks ago. No known wounds or injuries. Related Data Previous Rx's ?Medication ?Instructions ?Recorded doxycycline monohydrate 100 mg 100 mg PO BID 6 days #12 caps 06/10/24 capsule prednisone 20 mg tablet 40 mg (2 x 20 mg) PO DAILY 8 days 06/10/24 #16 tabs Allergies Allergy/AdvReac Type Severity Reaction Status Date / Time latex Allergy Mild Verified 12/08/23 11:16 escitalopram (From Lexapro) Allergy Verified 12/08/23 11:16 hydrochlorothiazide Allergy Verified 12/08/23 11:16 scallops Allergy Verified 12/08/23 11:16 sesame seed Allergy Verified 12/08/23 11:16 shrimp Allergy Verified 12/08/23 11:16 soy Allergy Verified 12/08/23 11:16 Sulfa (Sulfonamide Allergy Verified 12/08/23 11:16 Antibiotics) tree nut Allergy Verified 12/08/23 11:16 wheat Allergy Verified 12/08/23 11:16 PFSH <Willis Jensen MD - Last Filed: 06/09/24 07:29> PFS Disclaimer: The information contained in this section may have been updated after the patient was seen, as this information can be updated by other users. Medical History (Updated 06/09/24 @ 18:03 by Dale Jose MD) Menopause Allergic reaction caused by a drug Hematuria Clavicle fracture Fracture of forearm Elevated glucose Depression Anxiety Surgical History (Updated 12/08/23 @ 12:08 by Stu Ballard MD) History of elective Family History Other No significant family history Social History (Updated 12/08/23 @ 12:10 by Stu Ballard MD) Smoking Status: Never smoker alcohol intake: current alcohol intake frequency: a few times a month substance use type: denies use and other details: thc gummies current occupational status: employed Travel in the last 8 weeks: Inside the [facility] ([place]) adopted: Yes household members: spouse housing: house marital status: number of children: 0 current occupation: financial services assistant pets and animals: Yes leisure activities: exercise diet: gluten free physical activity: walking Other Medical History Have you received the Flu Vaccine for this season: No Have you received the Pneumonia Vaccine: No <Willis Jensen MD - Last Filed: 06/09/24 07:29> ROS Obtained: Yes Systems reviewed as appropriate & no additional complaints except as documented Per HPI Physical Exam <Willis Jensen MD - Last Filed: 06/09/24 07:29> General General appearance: alert, in no apparent distress and obese Head Head exam: atraumatic and normocephalic Eye Eye exam: Present PERRL and EOMI ENT ENT exam: Present normal oropharynx and mucous membranes moist Neck Neck exam: Present normal inspection and full ROM Chest Chest inspection: Present symmetric chest wall rise Respiratory Respiratory exam: Present normal lung sounds bilaterally; Absent respiratory distress, wheezes or stridor Cardiovascular Cardiovascular exam: Present normal rhythm and tachycardia Abdominal Exam Abdominal exam: Present soft; Absent distention, tenderness, guarding or rebound Extremities Exam Extremities exam: Present full ROM; Absent edema Expanded Lower Extremity Exam Right: Lower leg exam: Present erythema (Patch of erythema approximately 7 inches x 4 inches on the distal right lower extremity anterior and medial aspect just proximal to the ankle. Mild induration, well-demarcated, no fluctuance or wound. Neurovascularly intact distally. No traumatic findings); Absent tenderness, swelling, deformity or Homans' sign Neurological Exam Neurological exam: Present alert and oriented X3; Absent motor sensory deficit Psychiatric Psychiatric exam: Present normal affect and normal mood Skin Skin exam: Present warm and dry Medical Decision Making <Willis Jensen MD - Last Filed: 06/09/24 07:29> Medical Records Medical records reviewed: Yes I reviewed the patient's medical records. Screening: Per USPSTF and CDC recommendations, given the prevalence of disease in our region, it is our hospital?s policy to screen for HIV and viral Hepatitis for all patients aged 18 and over and those with ongoing risk factors. MR Comment: Discharge summary from November 2023 demonstrates patient was admitted with sepsis and treated with Rocephin and vancomycin with concerns for erysipelas. Her description of symptoms at that time included fever, nausea, headache, rash. Rash at that time was described as well-demarcated and warm to touch Derek Inquiry Pt receiving controlled substance: No Vital Signs: 06/09/24 05:52 06/09/24 06:31 06/09/24 07:30 Temperature 99.1 F Temperature Source Oral Pulse Rate 101 H 114 H Pulse Rate [Right Radial] 114 H Respiratory Rate 16 15 25 H Blood Pressure 156/88 H Blood Pressure [Left Arm] 165/101 H Blood Pressure Mean [Left Arm] 122 Blood Pressure Source Blood Pressure Source [Left Arm] Automatic Cuff Blood Pressure Position Blood Pressure Position [Left Arm] Supine 02 Sat by Pulse Oximetry 93 L 96 100 Oxygen Delivery Method Room Air Room Air 06/09/24 08:00 06/09/24 08:15 06/09/24 08:45 Temperature Temperature Source Pulse Rate 112 H 112 H 108 H Pulse Rate [Right Radial] Respiratory Rate 20 24 21 Blood Pressure Blood Pressure [Left Arm] Blood Pressure Mean [Left Arm] Blood Pressure Source Blood Pressure Source [Left Arm] Blood Pressure Position Blood Pressure Position [Left Arm] 02 Sat by Pulse Oximetry 92 L 92 L 91 L Oxygen Delivery Method 06/09/24 09:15 06/09/24 09:34 Temperature 99.1 F Temperature Source Oral Pulse Rate 105 H 105 H Pulse Rate [Right Radial] Respiratory Rate 18 Blood Pressure 156/88 H Blood Pressure [Left Arm] Blood Pressure Mean [Left Arm] Blood Pressure Source Automatic Cuff Blood Pressure Source [Left Arm] Blood Pressure Position Sitting Blood Pressure Position [Left Arm] 02 Sat by Pulse Oximetry 95 Oxygen Delivery Method Room Air Lab Data Lab Results 06/09/24 06:00: WBC 20.2 H*, RBC 4.86, Hgb 15.0, Hct 44.8, MCV 92.2, MCH 30.9, MCHC 33.5, RDW 12.8, Plt Count 346, MPV 10.7 H, Neut % (Auto) 88.5 H, Lymph % (Auto) 4.4 L, Will % (Auto) 5.6, Eos % (Auto) 0.1, Baso % (Auto) 0.4, Neut # (Auto) 17.9 H, Lymph # (Auto) 0.9, Will # (Auto) 1.1 H, Eos # (Auto) 0.0, Baso # (Auto) 0.1, Total Counted 100, Neutrophils % (Manual) 94 H, Lymphocytes % (Manual) 5 L, Monocytes % (Manual) 1 L, Platelet Estimate Normal, RBC Morphology Normal, PT 10.4, INR 0.92, Sodium 139, Potassium 4.1, Chloride 107, Carbon Dioxide 24, Anion Gap 12.1, BUN 9, Creatinine 0.90, Estimated Creat Clear 120, Estimated GFR 66, Est GFR ( Amer) 80, Glucose 135 H, Lactate 1.7, Calcium 9.6, Magnesium 1.8, Total Bilirubin 0.9, AST 45 H, ALT 59, Alkaline Phosphatase 66, C-Reactive Protein 30.0 H, Total Protein 8.4 H, Albumin 4.8, Globulin 3.6 H, Albumin/Globulin Ratio 1.3, DAVON Comment Comment, NEAL-1 Antibody <0.2, SS-A Antibody <0.2, SS-B Antibody <0.2, Sm (Walter) Antibody <0.2, QUALITY PROJECT MANAGER Antibody 0.6, Scl-70 Scleroderma Ab <0.2, Double Strand DNA Ab <1, Chromatin Antibody <0.2, Centromere B Antibody <0.2, HCV Ab AMOS w/Rflx PCR Qn Negative, HIV Ag/Ab Combo Qual Negative 06/09/24 06:30: VBG pH 7.32, VBG pCO2 48.6, VBG pO2 32.4, VBG HCO3 24.6, VBG Total CO2 26.1, VBG O2 Saturation 60.3, VBG Base Excess -1.4, VBG Lactic Acid 1.8 06/09/24 07:09: Urine Color Yellow, Urine Appearance Clear, Urine pH 8.5, Ur Specific [place] 1.015, Urine Protein Negative, Urine Glucose (UA) Negative, Urine Ketones Negative, Urine Blood Negative, Urine Nitrate Negative, Urine Bilirubin Negative, Urine Urobilinogen 0.2, Ur Leukocyte Esterase Negative, Urine RBC None, Urine WBC None, Ur Squamous Epith Cells 3-5 06/09/24 09:06: SARS-CoV-2 (PCR) Not detected, Influenza Type A (PCR) Not detected, Influenza Type B (PCR) Not detected, RSV (PCR) Not detected, Rhinovirus (PCR) Not detected 06/10/24 05:41 06/10/24 05:41 Orders (Tests/Meds): ED MEDICATIONS Discontinued Medications Generic Name Dose Route Start Last Admin Trade Name Freq PRN Reason Stop Dose Admin Acetaminophen 650 mg 06/09/24 12:42 06/10/24 08:34 Acetaminophen 325mg Tab PO 07/09/24 12:41 650 mg Q4HP PRN Administration Fever or Mild Pain (1-3) Enoxaparin Sodium 40 mg 06/10/24 09:00 06/10/24 08:34 Enoxaparin 40mg/0.4ml Syringe SUBCUT 07/10/24 08:59 40 mg DAILY ADELINA Administration Lactated Ringer's 1,000 mls @ 999 mls/hr 06/09/24 06:30 06/09/24 06:56 Lactated Ringer's 1000 Ml Bag IV 06/09/24 07:30 999 mls/hr .Q1H1M ONE Administration Piperacillin Sod/Tazobactam 100 mls @ 200 mls/hr 06/09/24 06:38 06/09/24 08:08 Sod 4.5 gm/ Sodium Chloride IV 06/09/24 07:07 200 mls/hr ONCE ONE Administration Clindamycin Phosphate 900 mg in 50 mls @ 100 mls/hr 06/09/24 06:39 06/09/24 06:56 Clindamycin 900mg/50ml D5w Premix IV 06/09/24 07:08 100 mls/hr ONCE ONE Administration Vancomycin HCl 2,000 mg/ 250 mls @ 125 mls/hr 06/09/24 06:45 06/09/24 10:21 Sodium Chloride IV 06/09/24 08:44 125 mls/hr ONCE ONE Administration Magnesium Sulfate 2 gm in 50 mls @ 50 mls/hr 06/09/24 12:30 06/09/24 12:29 Magnesium Sulfate 2gm/50ml Premix IV 06/09/24 13:29 50 mls/hr ONCE ONE Administration Lactated Ringer's 1,000 mls @ 100 mls/hr 06/09/24 12:45 06/10/24 08:34 Lactated Ringer's 1000 Ml Bag IV 07/09/24 12:44 100 mls/hr .Q10H ADELINA Administration Doxycycline Hyclate 100 mg/ 250 mls @ 166.667 mls/hr 06/09/24 16:00 06/10/24 03:35 Sodium Chloride IV 06/19/24 15:59 166.667 mls/hr Q12H ADELINA Administration Iopamidol 120 ml 06/09/24 07:22 06/09/24 07:23 Iopamidol-370 (76%);100ml Bottle IV 06/09/24 07:23 120 ml ONCE ONE Administration Iopamidol 75 ml 06/09/24 13:35 06/09/24 13:36 Iopamidol-370 (76%);100ml Bottle IV 06/09/24 13:36 75 ml ONCE ONE Administration Methylprednisolone Sodium Succinate 60 mg 06/09/24 15:15 06/09/24 15:39 Methylprednisolone Sod Succ 125mg Vial IV 06/09/24 15:16 60 mg ONCE ONE Administration Miscellaneous 1 each 06/09/24 06:45 06/09/24 06:56 Vancomycin Consult Request NOTAPPLIC 07/09/24 06:44 1 each CONSULT PHARMACY ADELINA Administration Ondansetron HCl 4 mg 06/09/24 06:38 06/09/24 06:56 Ondansetron 4mg/2ml Vial IV 06/09/24 06:39 4 mg ONCE ONE Administration Ondansetron HCl 4 mg 06/09/24 12:42 06/09/24 12:54 Ondansetron 4mg/2ml Vial IV 07/09/24 12:41 4 mg Q8HP PRN Administration Nausea Prednisone 40 mg 06/10/24 09:00 06/10/24 08:34 Prednisone 20mg Tab PO 07/10/24 08:59 40 mg DAILY ADELINA Administration Sodium Chloride 50 ml 06/09/24 07:22 06/09/24 07:23 0.9 % Sodium Chloride 50 Ml Vial IV 06/09/24 07:23 50 ml ONCE ONE Administration Sodium Chloride 10 ml 06/09/24 07:22 06/09/24 07:23 Sodium Chloride 0.9% 10ml Syr (Rad Only) IV 06/09/24 07:23 10 ml ONCE ONE Administration Sodium Chloride 10 ml 06/09/24 12:42 Sodium Chloride 0.9% 10ml Flush Syringe IV 07/09/24 12:41 NEEDED PRN Maintain IV Site Sodium Chloride 10 ml 06/09/24 13:35 06/09/24 13:36 Sodium Chloride 0.9% 10ml Syr (Rad Only) IV 06/09/24 13:36 10 ml ONCE ONE Administration ORDERS Category Date Time Status CT Tib/Fib RT w con Stat Cat Scan 06/09/24 06:39 Completed CXR --portable [XR chest portable] Stat Exams 06/09/24 06:31 Completed CBC w/Auto Diff [Complete Blood Count Auto Diff] Stat Lab 06/09/24 06:00 Completed CMP [Comprehensive Metabolic Panel] Stat Lab 06/09/24 06:00 Completed CRP [C-Reactive Protein] Stat Lab 06/09/24 06:00 Completed HIV Combo Stat Lab 06/09/24 06:00 Completed Hepatitis C Ab Qual. W/ RFX Stat Lab 06/09/24 06:00 Completed Lactic Acid Stat Lab 06/09/24 06:00 Completed Mini Respiratory Panel Stat Lab 06/09/24 09:06 Completed PT INR [Prothrombin Time INR] Stat Lab 06/09/24 06:00 Completed Urinalysis and Microscopic Stat Lab 06/09/24 07:09 Completed Blood Culture Stat Micro 06/09/24 05:55 Results VBG [Venous Blood Gas] Stat RT 06/09/24 06:30 Completed Medical Decision Narrative: In summary, this 48-year-old female presents to the emergency department today with concerns of fever, nausea, vomiting, headache, rash on the right lower extremity, symptoms are consistent with previous episode of sepsis. On initial evaluation patient is tachycardic but otherwise hemodynamically stable. She is afebrile at this time but took antipyretics prior to arrival. She was borderline hypoxic but lungs were clear on room air and she is not requiring oxygen support at this time, abdominal exam benign, physical exam is most notable for rash as described in the right lower extremity. Rash is most consistent with erysipelas with well-demarcated borders, possibly cellulitis however there is not significant associated induration. There is no fluctuance or associated wound. Given the acute onset of patient's fever, rash which she reports is rapidly spreading, I did consider the possibility of NSTI as well. Patient does meet sepsis criteria, I am also concerned for the possibility of electrolyte abnormalities, organ dysfunction, with patient's recent flulike illness I considered the possibility of pneumonia, also considered bacteremia. Broad workup including serum labs, inflammatory markers, CT imaging were ordered. Patient is being covered with broad-spectrum antibiotics including vancomycin, Zosyn, and clindamycin as well as receiving IV fluids. Because she is only mildly tachycardic and her blood pressure is good I am not giving her the full 30 mL/kg sepsis bolus at this time. ECG personally interpreted demonstrates normal sinus rhythm, rate 95, normal axis, no normal IL and QTc, no STEMI. Labs personally reviewed demonstrate significant leukocytosis WBC 20.2 with neutrophil predominance increasing suspicion for bacterial pathology, PT/INR normal, CMP nonactionable. Additional labs pending CT imaging of the right lower extremity has been ordered but is pending at this time. Patient handed off to Dr. Springer at physician shift change for further management and disposition pending additional labs and imaging workup <Mika Springer MD - Last Filed: 06/12/24 21:12> Vital Signs: 06/09/24 05:52 06/09/24 06:31 06/09/24 07:30 Temperature 99.1 F Temperature Source Oral Pulse Rate 101 H 114 H Pulse Rate [Right Radial] 114 H Respiratory Rate 16 15 25 H Blood Pressure 156/88 H Blood Pressure [Left Arm] 165/101 H Blood Pressure Mean [Left Arm] 122 Blood Pressure Source Blood Pressure Source [Left Arm] Automatic Cuff Blood Pressure Position Blood Pressure Position [Left Arm] Supine 02 Sat by Pulse Oximetry 93 L 96 100 Oxygen Delivery Method Room Air Room Air 06/09/24 08:00 06/09/24 08:15 06/09/24 08:45 Temperature Temperature Source Pulse Rate 112 H 112 H 108 H Pulse Rate [Right Radial] Respiratory Rate 20 24 21 Blood Pressure Blood Pressure [Left Arm] Blood Pressure Mean [Left Arm] Blood Pressure Source Blood Pressure Source [Left Arm] Blood Pressure Position Blood Pressure Position [Left Arm] 02 Sat by Pulse Oximetry 92 L 92 L 91 L Oxygen Delivery Method 06/09/24 09:15 06/09/24 09:34 Temperature 99.1 F Temperature Source Oral Pulse Rate 105 H 105 H Pulse Rate [Right Radial] Respiratory Rate 18 Blood Pressure 156/88 H Blood Pressure [Left Arm] Blood Pressure Mean [Left Arm] Blood Pressure Source Automatic Cuff Blood Pressure Source [Left Arm] Blood Pressure Position Sitting Blood Pressure Position [Left Arm] 02 Sat by Pulse Oximetry 95 Oxygen Delivery Method Room Air Lab Data Lab Results 06/09/24 06:00: WBC 20.2 H*, RBC 4.86, Hgb 15.0, Hct 44.8, MCV 92.2, MCH 30.9, MCHC 33.5, RDW 12.8, Plt Count 346, MPV 10.7 H, Neut % (Auto) 88.5 H, Lymph % (Auto) 4.4 L, Will % (Auto) 5.6, Eos % (Auto) 0.1, Baso % (Auto) 0.4, Neut # (Auto) 17.9 H, Lymph # (Auto) 0.9, Will # (Auto) 1.1 H, Eos # (Auto) 0.0, Baso # (Auto) 0.1, Total Counted 100, Neutrophils % (Manual) 94 H, Lymphocytes % (Manual) 5 L, Monocytes % (Manual) 1 L, Platelet Estimate Normal, RBC Morphology Normal, PT 10.4, INR 0.92, Sodium 139, Potassium 4.1, Chloride 107, Carbon Dioxide 24, Anion Gap 12.1, BUN 9, Creatinine 0.90, Estimated Creat Clear 120, Estimated GFR 66, Est GFR ( Amer) 80, Glucose 135 H, Lactate 1.7, Calcium 9.6, Magnesium 1.8, Total Bilirubin 0.9, AST 45 H, ALT 59, Alkaline Phosphatase 66, C-Reactive Protein 30.0 H, Total Protein 8.4 H, Albumin 4.8, Globulin 3.6 H, Albumin/Globulin Ratio 1.3, DAVON Comment Comment, NEAL-1 Antibody <0.2, SS-A Antibody <0.2, SS-B Antibody <0.2, Sm (Walter) Antibody <0.2, QUALITY PROJECT MANAGER Antibody 0.6, Scl-70 Scleroderma Ab <0.2, Double Strand DNA Ab <1, Chromatin Antibody <0.2, Centromere B Antibody <0.2, HCV Ab AMOS w/Rflx PCR Qn Negative, HIV Ag/Ab Combo Qual Negative 06/09/24 06:30: VBG pH 7.32, VBG pCO2 48.6, VBG pO2 32.4, VBG HCO3 24.6, VBG Total CO2 26.1, VBG O2 Saturation 60.3, VBG Base Excess -1.4, VBG Lactic Acid 1.8 06/09/24 07:09: Urine Color Yellow, Urine Appearance Clear, Urine pH 8.5, Ur Specific [place] 1.015, Urine Protein Negative, Urine Glucose (UA) Negative, Urine Ketones Negative, Urine Blood Negative, Urine Nitrate Negative, Urine Bilirubin Negative, Urine Urobilinogen 0.2, Ur Leukocyte Esterase Negative, Urine RBC None, Urine WBC None, Ur Squamous Epith Cells 3-5 06/09/24 09:06: SARS-CoV-2 (PCR) Not detected, Influenza Type A (PCR) Not detected, Influenza Type B (PCR) Not detected, RSV (PCR) Not detected, Rhinovirus (PCR) Not detected Orders (Tests/Meds): ED MEDICATIONS Discontinued Medications Generic Name Dose Route Start Last Admin Trade Name Freq PRN Reason Stop Dose Admin Acetaminophen 650 mg 06/09/24 12:42 06/10/24 08:34 Acetaminophen 325mg Tab PO 07/09/24 12:41 650 mg Q4HP PRN Administration Fever or Mild Pain (1-3) Enoxaparin Sodium 40 mg 06/10/24 09:00 06/10/24 08:34 Enoxaparin 40mg/0.4ml Syringe SUBCUT 07/10/24 08:59 40 mg DAILY ADELINA Administration Lactated Ringer's 1,000 mls @ 999 mls/hr 06/09/24 06:30 06/09/24 06:56 Lactated Ringer's 1000 Ml Bag IV 06/09/24 07:30 999 mls/hr .Q1H1M ONE Administration Piperacillin Sod/Tazobactam 100 mls @ 200 mls/hr 06/09/24 06:38 06/09/24 08:08 Sod 4.5 gm/ Sodium Chloride IV 06/09/24 07:07 200 mls/hr ONCE ONE Administration Clindamycin Phosphate 900 mg in 50 mls @ 100 mls/hr 06/09/24 06:39 06/09/24 06:56 Clindamycin 900mg/50ml D5w Premix IV 06/09/24 07:08 100 mls/hr ONCE ONE Administration Vancomycin HCl 2,000 mg/ 250 mls @ 125 mls/hr 06/09/24 06:45 06/09/24 10:21 Sodium Chloride IV 06/09/24 08:44 125 mls/hr ONCE ONE Administration Magnesium Sulfate 2 gm in 50 mls @ 50 mls/hr 06/09/24 12:30 06/09/24 12:29 Magnesium Sulfate 2gm/50ml Premix IV 06/09/24 13:29 50 mls/hr ONCE ONE Administration Lactated Ringer's 1,000 mls @ 100 mls/hr 06/09/24 12:45 06/10/24 08:34 Lactated Ringer's 1000 Ml Bag IV 07/09/24 12:44 100 mls/hr .Q10H ADELINA Administration Doxycycline Hyclate 100 mg/ 250 mls @ 166.667 mls/hr 06/09/24 16:00 06/10/24 03:35 Sodium Chloride IV 06/19/24 15:59 166.667 mls/hr Q12H ADELINA Administration Iopamidol 120 ml 06/09/24 07:22 06/09/24 07:23 Iopamidol-370 (76%);100ml Bottle IV 06/09/24 07:23 120 ml ONCE ONE Administration Iopamidol 75 ml 06/09/24 13:35 06/09/24 13:36 Iopamidol-370 (76%);100ml Bottle IV 06/09/24 13:36 75 ml ONCE ONE Administration Methylprednisolone Sodium Succinate 60 mg 06/09/24 15:15 06/09/24 15:39 Methylprednisolone Sod Succ 125mg Vial IV 06/09/24 15:16 60 mg ONCE ONE Administration Miscellaneous 1 each 06/09/24 06:45 06/09/24 06:56 Vancomycin Consult Request NOTAPPLIC 07/09/24 06:44 1 each CONSULT PHARMACY ADELINA Administration Ondansetron HCl 4 mg 06/09/24 06:38 06/09/24 06:56 Ondansetron 4mg/2ml Vial IV 06/09/24 06:39 4 mg ONCE ONE Administration Ondansetron HCl 4 mg 06/09/24 12:42 06/09/24 12:54 Ondansetron 4mg/2ml Vial IV 07/09/24 12:41 4 mg Q8HP PRN Administration Nausea Prednisone 40 mg 06/10/24 09:00 06/10/24 08:34 Prednisone 20mg Tab PO 07/10/24 08:59 40 mg DAILY ADELINA Administration Sodium Chloride 50 ml 06/09/24 07:22 06/09/24 07:23 0.9 % Sodium Chloride 50 Ml Vial IV 06/09/24 07:23 50 ml ONCE ONE Administration Sodium Chloride 10 ml 06/09/24 07:22 06/09/24 07:23 Sodium Chloride 0.9% 10ml Syr (Rad Only) IV 06/09/24 07:23 10 ml ONCE ONE Administration Sodium Chloride 10 ml 06/09/24 12:42 Sodium Chloride 0.9% 10ml Flush Syringe IV 07/09/24 12:41 NEEDED PRN Maintain IV Site Sodium Chloride 10 ml 06/09/24 13:35 06/09/24 13:36 Sodium Chloride 0.9% 10ml Syr (Rad Only) IV 06/09/24 13:36 10 ml ONCE ONE Administration ORDERS Category Date Time Status CT Tib/Fib RT w con Stat Cat Scan 06/09/24 06:39 Completed CXR --portable [XR chest portable] Stat Exams 06/09/24 06:31 Completed CBC w/Auto Diff [Complete Blood Count Auto Diff] Stat Lab 06/09/24 06:00 Completed CMP [Comprehensive Metabolic Panel] Stat Lab 06/09/24 06:00 Completed CRP [C-Reactive Protein] Stat Lab 06/09/24 06:00 Completed HIV Combo Stat Lab 06/09/24 06:00 Completed Hepatitis C Ab Qual. W/ RFX Stat Lab 06/09/24 06:00 Completed Lactic Acid Stat Lab 06/09/24 06:00 Completed Mini Respiratory Panel Stat Lab 06/09/24 09:06 Completed PT INR [Prothrombin Time INR] Stat Lab 06/09/24 06:00 Completed Urinalysis and Microscopic Stat Lab 06/09/24 07:09 Completed Blood Culture Stat Micro 06/09/24 05:55 Results VBG [Venous Blood Gas] Stat RT 06/09/24 06:30 Completed Medical Decision Narrative: In summary, this 48-year-old female presents to the emergency department today with concerns of fever, nausea, vomiting, headache, rash on the right lower extremity, symptoms are consistent with previous episode of sepsis. On initial evaluation patient is tachycardic but otherwise hemodynamically stable. She is afebrile at this time but took antipyretics prior to arrival. She was borderline hypoxic but lungs were clear on room air and she is not requiring oxygen support at this time, abdominal exam benign, physical exam is most notable for rash as described in the right lower extremity. Rash is most consistent with erysipelas with well-demarcated borders, possibly cellulitis however there is not significant associated induration. There is no fluctuance or associated wound. Given the acute onset of patient's fever, rash which she reports is rapidly spreading, I did consider the possibility of NSTI as well. Patient does meet sepsis criteria, I am also concerned for the possibility of electrolyte abnormalities, organ dysfunction, with patient's recent flulike illness I considered the possibility of pneumonia, also considered bacteremia. Broad workup including serum labs, inflammatory markers, CT imaging were ordered. Patient is being covered with broad-spectrum antibiotics including vancomycin, Zosyn, and clindamycin as well as receiving IV fluids. Because she is only mildly tachycardic and her blood pressure is good I am not giving her the full 30 mL/kg sepsis bolus at this time. ECG personally interpreted demonstrates normal sinus rhythm, rate 95, normal axis, no normal IL and QTc, no STEMI. Labs personally reviewed demonstrate significant leukocytosis WBC 20.2 with neutrophil predominance increasing suspicion for bacterial pathology, PT/INR normal, CMP nonactionable. Additional labs pending CT imaging of the right lower extremity has been ordered but is pending at this time. Patient handed off to Dr. Springer at physician shift change for further management and disposition pending additional labs and imaging workup Mika Springer MD BALDO: I assumed care of this patient from the previous emergency medicine physician. CT imaging reveals no fluid collection or evidence of necrotizing soft tissue infection. Patient will benefit from admission for inpatient treatment of cellulitis with comorbidities and clinical picture at this time. Patient was accepted for admission by hospitalist. Critical Care <Willis Jensen MD - Last Filed: 06/09/24 07:29> Critical Care Time Critical Care Time: Yes Attestation: On 06/09/24, the high probability of a clinically significant, sudden or life threatening deterioration of the following system(s) (hemodynamic) required my full and direct attention, intervention and personal management. The time I documented below is in addition to time spent performing reported procedures but includes the following listed in this critical care notation. Total Time Total Critical Care Time: 35
[2024-06-09] MEDS: IOPAMIDOL-370 (76%);100ML BOTTLE 120 ML IV (07:23)
[2024-06-09] MEDS: SODIUM CHLORIDE 0.9% 10ML SYR (RAD ONLY) 10 ML IV ×2 (07:23→13:36)
[2024-06-09] MEDS: 0.9 % SODIUM CHLORIDE 50 ML VIAL IV (07:23)
[2024-06-09 07:42] LABS: Lactate Venous 1.8 mmol/L (0.4-2.0); VBG Base Excess -1.4 mmol/L (-2.4-2.3); VBG HCO3 24.6 mmol/L (23-30); VBG Oxygen Saturation 60.3 % (50-70); VBG PCO2 48.6 mmol/L (35-51); VBG PH 7.32 mmol/L (7.31-7.41); VBG PO2 32.4 mmol/L (28-40); VBG Total CO2 26.1 mmol/L (23-27)
[2024-06-09 07:48] LABS: Appearance,Urine Clear (Clear); Blood, Urine Negative (Negative); Color,Urine Yellow (Yellow); Glucose,Urine (UA) Negative (Negative); Ketones,Urine Negative (Negative); PH,Urine 8.5 (5.0-8.5); Protein,Urine Negative (Negative); Specific Gravity, Urine 1.015 (1.005-1.030)
[2024-06-09 07:49] LABS: Bilirubin,Urine Negative (Negative); Leukocyte Esterase,Urine Negative (Negative); Nitrate,Urine Negative (Negative); Urobilinogen,Urine 0.2 EU/dl (0.2)
[2024-06-09] MEDS: PIPERACILLIN/TAZO 4.5 GM in 0.9 % SODIUM CHLORIDE 100 ML IV (08:08)
--- NOTE | 2024-06-09 08:59 | PC.NURSE ---
DR FREEMAN AT BEDSIDE
--- NOTE | 2024-06-09 09:02 | PC.NURSE ---
DR FREEMAN SPEAKING WITH HOSPITALIST FOR ADMISSION
--- NOTE | 2024-06-09 09:04 | PC.NURSE ---
LICENSING ENGINEER NOTIFIED OF ADMISSION
[2024-06-09 09:12] LABS: Coronavirus 19, PCR Not Detected (NotDetected); Human Rhinovirus Not Detected (NotDetected); Influenza A, PCR Not Detected (NotDetected); Influenza B, PCR Not Detected (NotDetected); Respiratory Syncytial Virus Not Detected (NotDetected)
--- NOTE | 2024-06-09 09:18 | PC.NURSE ---
Report given to MARVIN Davalos on Med Surg.
[2024-06-09 09:19] LABS: HIV Combo NEGATIVE (Negative)
[2024-06-09 09:26] LABS: Hepatitis C Ab Qual. W/ RFX NEGATIVE (Negative)
[2024-06-09] MEDS: VANCOMYCIN HCL 2,000 MG in 0.9 % SODIUM CHLORIDE 250 ML 125 MG IV (10:21)
--- NOTE | 2024-06-09 11:34 | EXP.HP ---
History of Present Illness *Admission Date: 06/09/24 *Reason for visit:: Fever 104 Fahrenheit *History of present illness: Vicenta John is a 48-year-old female with a medical history significant for gluten intolerance, obesity who presents with progressive weakness, fevers, joint pain, myalgias, and rash on right leg. She states her fevers have become especially prominent last night with a reading of 104 Fahrenheit. She states she has had myalgias, arthritic pain for more than a week and she thought she had a virus. 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 Denies chest pain, shortness of breath, abdominal pain, urinary symptoms, constipation/diarrhea. Workup in the ED significant for WBC 20.2, CRP 30. She was treated with vancomycin, Zosyn, clindamycin in the ED. Case discussed with ED provider and decision was made to admit patient for suspected sepsis secondary to cellulitis of right lower extremity. [facility] Disclaimer: The information contained in this section may have been updated after the patient was seen, as this information can be updated by other users. Medical History (Updated 06/09/24 @ 18:03 by Dale Jose MD) Menopause Allergic reaction caused by a drug Hematuria Clavicle fracture Fracture of forearm Elevated glucose Depression Anxiety Surgical History (Updated 12/08/23 @ 12:08 by Stu Ballard MD) History of elective Family History Other No significant family history Social History (Updated 12/08/23 @ 12:10 by Stu Ballard MD) Smoking Status: Never smoker alcohol intake: current alcohol intake frequency: a few times a month substance use type: denies use and other details: thc gummies current occupational status: employed Travel in the last 8 weeks: Inside the [place] adopted: Yes household members: spouse housing: house marital status: number of children: 0 current occupation: photographer assistant pets and animals: Yes leisure activities: exercise diet: gluten free physical activity: walking Do you have a fever (greater than 100.4 F or 38 C)?: Yes Other Medical History Have you received the Flu Vaccine for this season: No Have you received the Pneumonia Vaccine: No Meds Home Medications and Allergies Home Medications ?Medication ?Instructions ?Recorded ?Confirmed ?Type No Known Home Medications 06/09/24 06/09/24 History New Prescriptions to Start Prescriptions: Allergies Allergy/AdvReac Type Severity Reaction Status Date / Time latex Allergy Mild Verified 12/08/23 11:16 escitalopram (From Lexapro) Allergy Verified 12/08/23 11:16 hydrochlorothiazide Allergy Verified 12/08/23 11:16 scallops Allergy Verified 12/08/23 11:16 sesame seed Allergy Verified 12/08/23 11:16 shrimp Allergy Verified 12/08/23 11:16 soy Allergy Verified 12/08/23 11:16 Sulfa (Sulfonamide Allergy Verified 12/08/23 11:16 Antibiotics) tree nut Allergy Verified 12/08/23 11:16 wheat Allergy Verified 12/08/23 11:16 Exam Data for Last 24 hours Vital signs and Labs for Last 24 Hours: Temp Pulse Resp BP Pulse Ox O2 Del Method 99.5 F 104 H 16 136/74 95 Room Air 06/09/24 11:23 06/09/24 11:23 06/09/24 11:23 06/09/24 11:23 06/09/24 11:23 06/09/24 11:23 Laboratory Results - last 24 hr 06/09/24 06:00: WBC 20.2 H*, RBC 4.86, Hgb 15.0, Hct 44.8, MCV 92.2, MCH 30.9, MCHC 33.5, RDW 12.8, Plt Count 346, MPV 10.7 H, Neut % (Auto) 88.5 H, Lymph % (Auto) 4.4 L, [place] % (Auto) 5.6, Eos % (Auto) 0.1, Baso % (Auto) 0.4, Neut # (Auto) 17.9 H, Lymph # (Auto) 0.9, [place] # (Auto) 1.1 H, Eos # (Auto) 0.0, Baso # (Auto) 0.1, Total Counted 100, Neutrophils % (Manual) 94 H, Lymphocytes % (Manual) 5 L, Monocytes % (Manual) 1 L, Platelet Estimate Normal, RBC Morphology Normal, PT 10.4, INR 0.92, Sodium 139, Potassium 4.1, Chloride 107, Carbon Dioxide 24, Anion Gap 12.1, BUN 9, Creatinine 0.90, Estimated Creat Clear 120, Estimated GFR 66, Est GFR ( Amer) 80, Glucose 135 H, Lactate 1.7, Calcium 9.6, Total Bilirubin 0.9, AST 45 H, ALT 59, Alkaline Phosphatase 66, C-Reactive Protein 30.0 H, Total Protein 8.4 H, Albumin 4.8, Globulin 3.6 H, Albumin/Globulin Ratio 1.3, HCV Ab AMOS w/Rflx PCR Qn Negative, HIV Ag/Ab Combo Qual Negative 06/09/24 06:30: VBG pH 7.32, VBG pCO2 48.6, VBG pO2 32.4, VBG HCO3 24.6, VBG Total CO2 26.1, VBG O2 Saturation 60.3, VBG Base Excess -1.4, VBG Lactic Acid 1.8 06/09/24 07:09: Urine Color Yellow, Urine Appearance Clear, Urine pH 8.5, Ur Specific Smiley 1.015, Urine Protein Negative, Urine Glucose (UA) Negative, Urine Ketones Negative, Urine Blood Negative, Urine Nitrate Negative, Urine Bilirubin Negative, Urine Urobilinogen 0.2, Ur Leukocyte Esterase Negative, Urine RBC None, Urine WBC None, Ur Squamous Epith Cells 3-5 I & O for Last 24 hours: Intake & Output 06/06/24 06/07/24 06/08/24 06/09/24 23:59 23:59 23:59 23:59 Output Total 0 / 0 Balance 0 / 0 Weight 102.058 kg Constitutional Constitutional: no acute distress and obese *Routine HEENT Exam Head: Present normocephalic Eye: Present EOMI and PERRL ENT: Present mucous membranes moist *Routine Neck Exam Neck: Present supple; Absent lymphadenopathy *Routine Respiratory Exam Respiratory: Present CTA bilaterally *Routine Cardiovascular Exam Cardiovascular: Present RRR *Routine Abdominal Exam Abdominal: Present soft and normoactive bowel sounds; Absent tenderness *Routine Rectal Exam Rectal:: deferred *Routine Genitalia Exam Genitalia:: deferred *Routine Extremities Exam Extremities: Absent cyanosis, clubbing or edema Comments: Erythematous, ill demarcated circumferential rash in right lower extremity below knee without relative warmth, tenderness, drainage. *Routine Skin Exam Skin: Present warm; Absent rash *Routine Neurological Exam Neurological: Present alert and oriented X3 Assessment and Plan *Assessment and plan (1) Rash: Status: Acute Category: Medical Code(s): R21 - Rash and other nonspecific skin eruption Plan Vicenta John is a 48-year-old female with a medical history significant for gluten intolerance, obesity who presents with progressive weakness, fevers, joint pain, myalgias, and rash on right leg. She states her fevers have become especially prominent last night with a reading of 104 Fahrenheit. She states she has had myalgias, arthritic pain for more than a week and she thought she had a virus. 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 Denies chest pain, shortness of breath, abdominal pain, urinary symptoms, constipation/diarrhea. Workup in the ED significant for WBC 20.2, CRP 30. She was treated with vancomycin, Zosyn, clindamycin in the ED. Case discussed with ED provider and decision was made to admit patient for suspected sepsis secondary to cellulitis of right lower extremity. #Suspected autoimmune, inflammatory flare up #Suspected lupus flare, malar rash #Possible tickborne illness ? Patient slight lower extremity rash does not seem infectious as there is no tenderness, warmth and it is not well demarcated. It could be erysipelas, but still unlikely given aforementioned. ? With a combination of suspected malar rash, diffuse joint pain, fevers, malaise, weakness this may represent lupus or other autoimmune/inflammatory flareup. Symptoms significantly improved after IV Solu-Medrol 60 mg. ? Could also be tickborne illness as patient works predominantly outdoors and with horses. ? Complete respiratory panel negative. ? Follow-up DAVON comprehensive panel, rheumatoid factor, celiac panel ESR, CRP, procalcitonin. ? Continue with prednisone 40 mg daily. ? Continue doxycycline day 1 for possible tickborne illness. #Gluten intolerance ? Follow-up celiac panel. #Obesity ? Complicates all aspects of care. Full code DVT prophylaxis: Lovenox 40 mg
[2024-06-09 11:54] LABS: Magnesium 1.8 mg/dl (1.6-2.3)
[2024-06-09] MEDS: MAGNESIUM SULFATE IN WATER 2 GM/50 ML PIGGYBACK IV (12:29)
[2024-06-09 12:36] LABS: Adenovirus,PCR Not Detected (NotDetected); Bordetella Pertussis Not Detected (NotDetected); Chlamydophila Pneumoniae, PCR Not Detected (NotDetected); Coronavirus 19, PCR Not Detected (NotDetected); Coronavirus 229E Not Detected (NotDetected); Coronavirus NL63 Not Detected (NotDetected); Coronavirus OC43 Not Detected (NotDetected); Coronovirus HKU1,PCR Not Detected (NotDetected); Human Metapneumovirus Not Detected (NotDetected); Influenza A, PCR Not Detected (NotDetected); Influenza AH1, 2009 Not Detected (NotDetected); Influenza AH1, PCR Not Detected (NotDetected); Influenza AH3,PCR Not Detected (NotDetected); Influenza B, PCR Not Detected (NotDetected); Mycoplasma Pneumoniae, PCR Not Detected (NotDetected); Parainfluenza 1, PCR Not Detected (NotDetected); Parainfluenza 2, PCR Not Detected (NotDetected); Parainfluenza 3, PCR Not Detected (NotDetected); Parainfluenza 4, PCR Not Detected (NotDetected); Respiratory Syncytial Virus Not Detected (NotDetected); Rhinovirus/Enterovirus Not Detected (NotDetected)
--- NOTE | 2024-06-09 12:46 | CT_ITS ---
FINAL REPORT TECHNIQUE: After the administration of intravenous contrast, axial images were obtained through the abdomen and pelvis by computed tomography. The study was performed with techniques to keep radiation dose as low as reasonably achievable, (ALARA). Individual dose reduction techniques using automated exposure control or adjustment of mA and/or kV according to the patient's size were employed. CLINICAL HISTORY: sepsis workup COMPARISON: 11/28/2023 FINDINGS: CT ABDOMEN AND PELVIS WITH CONTRAST Abdomen: The lung bases are clear. There is fatty infiltration of the liver. The gallbladder is present. The spleen, pancreas, adrenals and kidneys appear unremarkable. The aorta is normal in caliber. There is no free fluid or adenopathy. Pelvis: The uterus lies eccentric to the right. The appendix is not identified. The urinary bladder is unremarkable. here is no free fluid or adenopathy. IMPRESSION: Fatty liver. No localized inflammatory reaction or fluid collection. Reviewed, Interpreted and Dictated by Maury Hickey MD Transcribed by Emily Nance Authenticated and [facility]
--- NOTE | 2024-06-09 12:46 | CT_ITS ---
FINAL REPORT TECHNIQUE: Axial CT images were performed from the lung apices through the upper abdomen. Coronal reformats were submitted. This study was performed with techniques to keep radiation doses as low as reasonably achievable (ALARA). Individualized dose reduction techniques using automated exposure control or adjustment of mA and/or kV according to the patient's size were employed. CLINICAL HISTORY: sepsis workup COMPARISON: None FINDINGS: CT CHEST W/O CONTRAST There is no axillary adenopathy. There is no mediastinal mass or adenopathy. There is a large densely calcified right hilar lymph node. Heart size is normal. There is no pericardial or pleural effusion. On the lung window images, there is a calcified granuloma in the right upper lobe. Scarring is noted at the bases. Limited images of the upper abdomen are unremarkable. IMPRESSION: Bibasilar pulmonary scarring. Reviewed, Interpreted and Dictated by Maury Hickey MD Transcribed by Emily Nance Authenticated and [facility]
[2024-06-09] MEDS: ACETAMINOPHEN 325MG TAB 650 MG PO ×2 (12:53→21:25)
[2024-06-09] MEDS: LACTATED RINGERS 1000ML 1,000 ML 100 ML IV (12:53)
[2024-06-09] MEDS: IOPAMIDOL-370 (76%);100ML BOTTLE 75 ML IV (13:36)
[2024-06-09] MEDS: METHYLPREDNISOLONE SOD SUCC 125MG VIAL 60 MG IV (15:39)
[2024-06-09] MEDS: DOXYCYCLINE HYCLATE 100 MG in 0.9 % SODIUM CHLORIDE 250 ML 166.667 MG IV (15:39)
--- NOTE | 2024-06-09 17:04 | PC.NURSE ---
A&OX4. TOLERATING RA WELL. UP INDEPENDENTLY IN ROOM. AT BEDSIDE FOR MAJORITY OF SHIFT. PATIENT HAS RASH TO LLE, AND BUTTERFLY LIKE RASH TO FACE. STATES THAT SHE HAS FELT VERY HOT AND ACHY ALL DAY. TEMP HAS BEEN NORMAL. PT ALSO C/O HEADACHE AND SOME NAUSEA, TX PER MAR. EFFECTIVENESS NOTED. PT HAS NOT HAD A GOOD APPETITE. HAS RESTED IN BED MAJORITY OF SHIFT. LABS PENDING AT THIS TIME. IS IN GREAT SPIRITS. NO NEEDS OR C/O NOTED AT THIS TIME, VSS.
[2024-06-09 19:12] LABS: Erythrocyte Sedimentation Rate 24 mm/hr (0-20)
[2024-06-09 19:58] LABS: C-Reactive Protein 143.6 mg/L (0-4)
[2024-06-09 20:03] LABS: Thyroid Stimulating Hormone 0.69 uIU/mL (0.465-4.68)
[2024-06-10] VITALS: BP 125/62; PULSE 70; RESP 16; TEMP 36.5; O2SAT 93
[2024-06-10] MEDS: LACTATED RINGERS 1000ML 1,000 ML 100 ML IV ×2 (03:35→08:34)
[2024-06-10] MEDS: DOXYCYCLINE HYCLATE 100 MG in 0.9 % SODIUM CHLORIDE 250 ML 166.667 MG IV (03:35)
[2024-06-10 04:00] VITALS: BP 137/77; PULSE 68; RESP 16; TEMP 36.4; O2SAT 93; BMI 17.9
--- NOTE | 2024-06-10 04:00 | PC.NURSE ---
Patient's previous IV (20G in the right antecubital) had infiltrated. A new, 20G IV was inserted into the left antecubital at this time.
--- NOTE | 2024-06-10 04:31 | PC.NURSE ---
Patient is pleasantly alert and oriented x4. She was observed to have eyes closed, respirations even and unlabored on room air, and no apparent distress throughout the majority of the night. Tylenol was administered once per MAR this shift on behalf of a reported headache and body aches. Other scheduled medications were administered as appropriately per MAR. Lactated Ringers continue to infuse at 100 mL/hr. This morning, the patient reported having increased perspiration despite feeling cold. Patient has remained afebrile this shift; room temperature was adjusted per patient request. Lien ely was provided per patient request to help ease [her] stomach. Gluten-free diet tolerated. Auscultation of her lungs, heart, and bowels were within normal findings. Vital signs remain stable. A flat, erythematous rash was observed across the patient's bridge of her nose and cheeks; redness was observed on her right anterior nelson. Patient has been ambulating independently in her room/to the bathroom without any difficulties. At this time, the patient is resting in bed without any further complaints. No acute changes noted thus far. Call light within reach.
[2024-06-10 06:26] LABS: Basophils % 0.1 % (0.1-2.0); Lymphocytes # 0.9 K/mm3 (0.7-4.5); Lymphocytes % 6.7 % (10-50); Mean Corpuscular Hemoglobin 30.7 pg (27.0-31.2); Mean Platelet Volume 10.9 fl (7.4-10.4); Monocytes # 0.3 K/mm3 (0.1-1.0); Monocytes % 2.1 % (1.7-9.3); Neutrophils # 11.8 K/mm3 (1.8-7.8); Neutrophils % 90.2 % (37.0-80.0); Platelet Count 255 K/mm3 (142-424); Red Cell Distribution Width 13.1 % (11.5-17.5); White Blood Count 13.1 K/mm3 (4.8-10.8)
[2024-06-10 06:42] LABS: MANUAL DIFFERENTIAL MANUAL DIFFERENTIAL (MANUAL DIFF)
[2024-06-10 06:50] LABS: Alanine Aminotransferase 46 U/L (12-78); Albumin Level 3.9 g/dl (3.5-5.0); Albumin/Globulin Ratio 1.3 (1.1-1.8); Alkaline Phosphatase 67 U/L (38-126); Anion Gap 10.8 mEq/L (5-15); Aspartate Amino Transferase 37 U/L (14-36); Bilirubin,Total 0.6 mg/dl (0.2-1.3); Blood Urea Nitrogen 11 mg/dl (7-17); Carbon Dioxide 23 mmol/L (22.0-30.0); Chloride 109 mmol/L (98-107); Chol/HDL Ratio 3.5 (1-3.5); Cholesterol 167 mg/dl (140-200); Creatinine Clearance Estimated 72 mL/min (50-200); Estimated Glomerular Filt Rate 89 ml/min (>60); GFR (African American) 107 ML/MIN (>60); Globulin 3.1 g/dL (1.3-3.2); Glucose 136 mg/dl (74-100); HDL Cholesterol 48 mg/dl (40-60); Magnesium 2.2 mg/dl (1.6-2.3); Potassium 3.8 mmoL/L (3.5-5.1); Sodium 139 mmol/L (136-145); Triglycerides 58 mg/dl (30-150); VLDL Cholesterol 12 mg/dL (0-40)
[2024-06-10 07:00] LABS: Direct LDL Cholesterol 80.46 mg/dL (100-129)
[2024-06-10 07:01] LABS: Hemoglobin 13.4 g/dL (12.2-16.2)
[2024-06-10 07:54] LABS: Lymphocytes % 7 % (10-50); Monocytes % 1 % (2-9); Neutrophils % 92 % (42-76); Platelet Estimate Normal; RBC Morphology Normal; Total Cells Counted 100
[2024-06-10 08:00] VITALS: BP 152/82; PULSE 83; RESP 16; TEMP 36.6; O2SAT 95
[2024-06-10] MEDS: predniSONE 20MG TAB 40 MG PO (08:34)
[2024-06-10] MEDS: ACETAMINOPHEN 325MG TAB 650 MG PO (08:34)
[2024-06-10] MEDS: ENOXAPARIN 40MG/0.4ML SYRINGE 40 MG SUBCUT (08:34)
[2024-06-10 12:00] VITALS: BP 169/83; PULSE 78; RESP 18; TEMP 36.4; O2SAT 94
--- NOTE | 2024-06-10 13:49 | EXP.DC.SUM ---
General Admission date:: 06/09/24 HPI HPI HPI: Vicenta John is a 48-year-old female with a medical history significant for gluten intolerance, obesity who presents with progressive weakness, fevers, joint pain, myalgias, and rash on right leg. She states her fevers have become especially prominent last night with a reading of 104 Fahrenheit. She states she has had myalgias, arthritic pain for more than a week and she thought she had a virus. 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 Denies chest pain, shortness of breath, abdominal pain, urinary symptoms, constipation/diarrhea. Workup in the ED significant for WBC 20.2, CRP 30. She was treated with vancomycin, Zosyn, clindamycin in the ED. Case discussed with ED provider and decision was made to admit patient for suspected sepsis secondary to cellulitis of right lower extremity. Hospital Course Hospital Course Hospital Course: Vicenta John is a 48-year-old female with a medical history significant for gluten intolerance, obesity who presents with progressive weakness, fevers, joint pain, myalgias, and rash on right leg. She states her fevers have become especially prominent last night with a reading of 104 Fahrenheit. She states she has had myalgias, arthritic pain for more than a week and she thought she had a virus. 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 Denies chest pain, shortness of breath, abdominal pain, urinary symptoms, constipation/diarrhea. Workup in the ED significant for WBC 20.2, CRP 30. She was treated with vancomycin, Zosyn, clindamycin in the ED. Case discussed with ED provider and decision was made to admit patient for suspected sepsis secondary to cellulitis of right lower extremity. #Allergic reaction versus cellulitis ? Patient had right lower extremity erythema without tenderness or warmth that was not well-demarcated. But apparently had fever of 104 at home. ? Did not meet classical criteria for cellulitis, erysipelas and symptoms significantly improved after Solu-Medrol. Could be allergic reaction, or less likely tick borne illness. ? Initially also thought to be possible autoimmune/lupus related, especially with malar rash. However, DAVON comprehensive panel normal. ? Clinically improved after steroids, doxycycline. - Discharged with prednisone and doxycycline for 6 more days. #Gluten intolerance ? Celiac panel normal. #Obesity ? Complicated all aspects of care. Total time spent on discharge: 32 minutes on chart review, counseling, documentation, and direct care with patient. Exam Data for Last 24 hours Vital signs and Labs for Last 24 Hours: Temp Pulse Resp BP Pulse Ox O2 Del Method 97.6 F 78 18 169/83 H 94 L Room Air 06/10/24 12:00 06/10/24 12:00 06/10/24 12:00 06/10/24 12:00 06/10/24 12:00 06/10/24 13:00 Laboratory Results - last 24 hr 06/09/24 18:29: ESR 24 H, C-Reactive Protein 143.6 H, TSH 0.69 06/09/24 : Chlamy pneumoniae PCR Not detected, Adenovirus (PCR) Not detected, B. pertussis DNA (PCR) Not detected, Coronavirus OC43 (PCR) Not detected, Coronavirus HKU1 (PCR) Not detected, Coronavirus 229E (PCR) Not detected, SARS-CoV-2 (PCR) Not detected, Coronavirus NL63 (PCR) Not detected, Human Metapneumovir PCR Not detected, Influenza A (H1) PCR Not detected, Influ A (H1N1/09) PCR Not detected, Influenza A (H3) PCR Not detected, Influenza Type A (PCR) Not detected, Influenza Type B (PCR) Not detected, M. pneumoniae (PCR) Not detected, Parainfluenza 1 (PCR) Not detected, Parainfluenza 2 (PCR) Not detected, Parainfluenza 3 (PCR) Not detected, Parainfluenza 4 (PCR) Not detected, RSV (PCR) Not detected, Entero/Rhino (PCR) Not detected 06/10/24 05:41: WBC 13.1 H D, RBC 4.30, Hgb 13.4 D, Hct 40.0, MCV 93.0, MCH 30.7, MCHC 33.0, RDW 13.1, Plt Count 255 D, MPV 10.9 H, Neut % (Auto) 90.2 H, Lymph % (Auto) 6.7 L, [place] % (Auto) 2.1, Eos % (Auto) 0.0 L, Baso % (Auto) 0.1, Neut # (Auto) 11.8 H, Lymph # (Auto) 0.9, [place] # (Auto) 0.3, Eos # (Auto) 0.0, Baso # (Auto) 0.0, Total Counted 100, Neutrophils % (Manual) 92 H, Lymphocytes % (Manual) 7 L, Monocytes % (Manual) 1 L, Platelet Estimate Normal, RBC Morphology Normal, Sodium 139, Potassium 3.8, Chloride 109 H, Carbon Dioxide 23, Anion Gap 10.8, BUN 11, Creatinine 0.70 D, Estimated Creat Clear 72, Estimated GFR 89, Est GFR ( Amer) 107 D, Glucose 136 H, Calcium 9.0, Magnesium 2.2 D, Total Bilirubin 0.6, AST 37 H, ALT 46, Alkaline Phosphatase 67, Total Protein 7.0, Albumin 3.9 D, Globulin 3.1, Albumin/Globulin Ratio 1.3, Triglycerides 58, Cholesterol 167, LDL Cholesterol Direct 80.46 L, VLDL Cholesterol 12, HDL Cholesterol 48, Cholesterol/HDL Ratio 3.5 I & O for Last 24 hours: Intake & Output 06/07/24 06/08/24 06/09/24 06/10/24 23:59 23:59 23:59 23:59 Intake Total 280 / 1411 1611 / 1611 Output Total 0 / 0 Balance 280 / 1411 1611 / 1611 Weight 102.058 kg 47.684 kg Microbiology Reports for the Last 24 Hours: Microbiology 06/09/24 05:55 Blood Blood Culture - Preliminary NO GROWTH AFTER 24 HOURS 06/09/24 06:00 Blood Blood Culture - Preliminary NO GROWTH AFTER 24 HOURS Constitutional Constitutional: no acute distress and obese *Routine HEENT Exam Head: Present normocephalic Eye: Present EOMI and PERRL ENT: Present mucous membranes moist *Routine Neck Exam Neck: Present supple; Absent lymphadenopathy *Routine Respiratory Exam Respiratory: Present CTA bilaterally *Routine Cardiovascular Exam Cardiovascular: Present RRR *Routine Abdominal Exam Abdominal: Present soft and normoactive bowel sounds; Absent tenderness *Routine Extremities Exam Extremities: Absent cyanosis, clubbing or edema *Routine Skin Exam Skin: Present warm; Absent rash *Routine Neurological Exam Neurological: Present alert and oriented X3 Results Data Completed and Pending Labs on day of discharge: Labs from last 24 hours 06/10/24 06/09/24 06/09/24 05:41 Unknown 18:29 WBC 13.1 H D RBC 4.30 Hgb 13.4 D Hct 40.0 MCV 93.0 MCH 30.7 MCHC 33.0 RDW 13.1 Plt Count 255 D MPV 10.9 H Neut % (Auto) 90.2 H Lymph % (Auto) 6.7 L [place] % (Auto) 2.1 Eos % (Auto) 0.0 L Baso % (Auto) 0.1 Neut # (Auto) 11.8 H Lymph # (Auto) 0.9 [place] # (Auto) 0.3 Eos # (Auto) 0.0 Baso # (Auto) 0.0 Total Counted 100 Neutrophils % (Manual) 92 H Lymphocytes % (Manual) 7 L Monocytes % (Manual) 1 L Platelet Estimate Normal RBC Morphology Normal ESR 24 H Sodium 139 Potassium 3.8 Chloride 109 H Carbon Dioxide 23 Anion Gap 10.8 BUN 11 Creatinine 0.70 D Estimated Creat Clear 72 Estimated GFR 89 Est GFR ( Amer) 107 D Glucose 136 H Calcium 9.0 Magnesium 2.2 D Total Bilirubin 0.6 AST 37 H ALT 46 Alkaline Phosphatase 67 C-Reactive Protein 143.6 H Total Protein 7.0 Albumin 3.9 D Globulin 3.1 Albumin/Globulin Ratio 1.3 Triglycerides 58 Cholesterol 167 LDL Cholesterol Direct 80.46 L VLDL Cholesterol 12 HDL Cholesterol 48 Cholesterol/HDL Ratio 3.5 TSH 0.69 Chlamy pneumoniae PCR Not detected Adenovirus (PCR) Not detected B. pertussis DNA (PCR) Not detected Coronavirus OC43 (PCR) Not detected Coronavirus HKU1 (PCR) Not detected Coronavirus 229E (PCR) Not detected SARS-CoV-2 (PCR) Not detected Coronavirus NL63 (PCR) Not detected Human Metapneumovir PCR Not detected Influenza A (H1) PCR Not detected Influ A (H1N1/09) PCR Not detected Influenza A (H3) PCR Not detected Influenza Type A (PCR) Not detected Influenza Type B (PCR) Not detected M. pneumoniae (PCR) Not detected Parainfluenza 1 (PCR) Not detected Parainfluenza 2 (PCR) Not detected Parainfluenza 3 (PCR) Not detected Parainfluenza 4 (PCR) Not detected RSV (PCR) Not detected Entero/Rhino (PCR) Not detected Preliminary micro results at discharge 06/09/24 05:55 Blood Culture - Preliminary Blood NO GROWTH AFTER 24 HOURS 06/09/24 06:00 Blood Culture - Preliminary Blood NO GROWTH AFTER 24 HOURS DS: Diagnosis Discharge Diagnosis (1) Rash: Status: Acute Code(s): R21 - Rash and other nonspecific skin eruption Meds Home Medications and Allergies Home Medications ?Medication ?Instructions ?Recorded ?Confirmed ?Type doxycycline monohydrate 100 mg 100 mg PO BID 6 days #12 caps 06/10/24 06/17/24 Rx capsule prednisone 20 mg tablet 40 mg (2 x 20 mg) PO DAILY 8 days 06/10/24 06/17/24 Rx #16 tabs New Prescriptions to Start Prescriptions: doxycycline monohydrate Dale Jose prednisone Dale Jose Allergies Allergy/AdvReac Type Severity Reaction Status Date / Time latex Allergy Mild Verified 06/17/24 09:05 escitalopram (From Lexapro) Allergy Verified 06/17/24 09:05 hydrochlorothiazide Allergy Verified 06/17/24 09:05 scallops Allergy Verified 06/17/24 09:05 sesame seed Allergy Verified 06/17/24 09:05 shrimp Allergy Verified 06/17/24 09:05 soy Allergy Verified 06/17/24 09:05 Sulfa (Sulfonamide Allergy Verified 06/17/24 09:05 Antibiotics) tree nut Allergy Verified 06/17/24 09:05 wheat Allergy Verified 06/17/24 09:05 Discharge Plan Disposition Patient Disposition: Home, Self-Care Condition: Fair Follow up Plan Follow up with: Stu Ballard MD [Primary Care Provider] - 06/17/24 9:00 am Prescriptions/Medication Reconciliation: New prednisone 20 mg Tablet 40 mg PO DAILY 8 Days Qty: 16 0RF doxycycline monohydrate 100 mg capsule 100 mg PO BID 6 Days Qty: 12 0RF Problem Reconciliation Problems Reviewed?: Yes Patient Discharge Instructions Patient Instructions: DI for Sepsis -- Adult Print Language: Armenian Providers Primary Care Provider: Stu Ballard Admit Provider: Dale Jose Attending Provider: Dale Jose
[2024-06-10 13:56] LABS: Anti-Centromere B Antibodies <0.2 AI (0.0-0.9); Anti-DNA (DS) Ab Qn <1 IU/mL (0-9); Anti-Jo-1 <0.2 AI (0.0-0.9); Anti-Smith Antibody <0.2 AI (0.0-0.9); Antichromatin Antibodies <0.2 AI (0.0-0.9); Antiscleroderma-70 Antibodies <0.2 AI (0.0-0.9); RNP Antibodies 0.6 AI (0.0-0.9); Sjogren's Anti-SS-A <0.2 AI (0.0-0.9); Sjogren's Anti-SS-B <0.2 AI (0.0-0.9)
[2024-06-11 09:15] LABS: Complement C3 177 mg/dL (82-167)
[2024-06-11 13:10] LABS: Deamidated Gliadin Abs, IgA 6 units (0-19); Deamidated Gliadin Abs, IgG 2 units (0-19); Tissue Transglutaminase IgA Ab <2 U/mL (0-3); Tissue Transglutaminase IgG Ab 3 U/mL (0-5)
--- NOTE | 2024-06-13 10:57 | SW/DCPLANNER ---
Spoke with patient on the phone. Patient stated that she is doing well. Patient stated that she is aware of her upcoming appointments. Patient stated that her medicine was brought to her bedside from clinic pharmacy. Patient stated that she has no concerns or questions at this time. Ankit Govea
[2024-06-13 13:11] LABS: Endomysial IgA Antibody Negative (Negative)
[2024-06-14 14:56] LABS: Lyme B. burgdorferi PCR Blood Negative (Negative)
[2024-06-15 09:24] LABS: Reticulin IgA Antibody Negative titer (Neg:<1:2.5)
[2024-06-16 19:17] LABS: Rheumatoid Factor IGA < 7 U (<7); Rheumatoid Factor IGM < 7 U (<7)
== END 2024-06-10 14:44 | disposition home or self-care (01) ==
LOC: ER 07:40 → 2ND 09:13
PROVIDERS: Emergency Medicine; Admitting Provider Student in an Organized Health Care Education/Training Program; Emergency Provider Emergency Medicine; PCP Family Medicine; Visit Provider Student in an Organized Health Care Education/Training Program
DX: T78.40XA Allergy, unspecified, initial encounter (principal); R21 Rash and other nonspecific skin eruption; F17.210 Nicotine dependence, cigarettes, uncomplicated; Z88.2 Allergy status to sulfonamides; Z88.8 Allergy status to other drugs, medicaments and biological substances; Z91.040 Latex allergy status; Z91.013 Allergy to seafood; Z91.018 Allergy to other foods; K90.41 Non-celiac gluten sensitivity
CPT/HCPCS: 36415; 71045; 71250; 73701; 74177; 80053; 80061; 81001; 82803; 83516; 83605; 83735; 84443; 85007; 85025; 85027; 85610; 85651; 86140; 86161; 86225; 86235; 86255; 86256; 86431; 86803; 87040; 87389; 87476; 87631; 87633; 93005; 99291; G0378; J0736; J1650; J2405; J2543; J2919; J3370; J3475; J7120; Q9967

== ENCOUNTER 2024-06-17 10:15 | Outpatient (CLI) | payer BC, SELFPAY ==
[2024-06-17 18:10] LABS: Basophils % 0.3 % (0.1-2.0); Eosinophils # 0.1 K/mm3 (0.0-0.4); Eosinophils % 0.9 % (0.1-12.0); Hematocrit 44.5 % (37.0-47.0); Hemoglobin 14.5 g/dL (12.2-16.2); Lymphocytes % 30.2 % (10-50); Mean Corpuscular HGB Conc 32.6 g/dL (31.8-35.4); Mean Corpuscular Hemoglobin 31.1 pg (27.0-31.2); Mean Corpuscular Volume 95.5 fl (81-99); Mean Platelet Volume 10.7 fl (7.4-10.4); Monocytes % 9.6 % (1.7-9.3); Neutrophils # 5.9 K/mm3 (1.8-7.8); Neutrophils % 58.7 % (37.0-80.0); Platelet Count 326 K/mm3 (142-424); Red Blood Count 4.66 M/mm3 (4.20-5.40); Red Cell Distribution Width 13.2 % (11.5-17.5)
== END 2024-06-17 23:59 | disposition home or self-care (01) ==
LOC: LAB.DROPOF 06-20 10:42
PROVIDERS: PCP Family Medicine; Visit Provider Family Medicine
DX: A41.9 Sepsis, unspecified organism (principal)
CPT/HCPCS: 85025

== ENCOUNTER 2024-08-23 14:19 | Outpatient (CLI) | payer BC, SELFPAY ==
--- NOTE | 2024-08-23 14:30 | MM_ITS ---
PROCEDURE INFORMATION: Exam: MG Bilateral Screening 3D Mammography Exam date and time: 08/23/2024 2:33 PM Age: 48 years old Clinical indication: Screening examination TECHNIQUE: Imaging protocol: Bilateral Screening tomosynthesis and 2D mammography including computer-aided detection (CAD) when performed. COMPARISON: No relevant prior studies available. FINDINGS: MAMMOGRAPHY: Breast composition: There are scattered areas of fibroglandular density. Mass: No suspicious masses. Architectural distortion: None. Calcifications: No suspicious calcifications. Asymmetric density: None. Skin thickening: None. Axillary adenopathy: None. IMPRESSION: No mammographic evidence of malignancy. Annual screening is recommended unless otherwise clinically indicated. ASSESSMENT: BI-RADS Category 1: Negative.
== END 2024-08-23 23:59 | disposition home or self-care (01) ==
LOC: RAD 14:19
PROVIDERS: PCP Family Medicine; Visit Provider Family Medicine
DX: Z12.31 Encounter for screening mammogram for malignant neoplasm of breast (principal); R92.323 Mammographic fibroglandular density, bilateral breasts
CPT/HCPCS: 77063; 77067

== ENCOUNTER 2025-02-24 07:54 | Outpatient (CLI) | payer BC, SELFPAY ==
--- OUTSIDE RECORDS SUMMARY | 2024-08-29 09:00 | XMS_ITS | Encounter Summary ---
Author Organization [facility] Address [address] [place] [address] Care Team Providers Care Consulting Manager Name Role Phone Stu Ballard MD Primary Care Provider [phone] Reason for Referral * Hospital - Outpatient (Routine) - Closed Specialty Diagnoses / Procedures Referred By Ralph t Referred To Contact Sleep Medicine Diagnoses Sleep apnea, unspecified type Snoring Excessive daytime sleepiness Procedures Home Sleep Study Nehemias Yee APRN [address] [place] [address] Phone: tel: fax: [facility] [address] [address] Phone: tel: fax: Referral ID Status Reason Start Date Expiration Date Visits Re quested Visits Authorized [id number] Closed 07/19/2024 09/17/2024 1 1 Reason for Visit * Hospital - Outpatient (Routine) - Closed Specialty Diagnoses / Procedures Referred By Contac t Referred To Contact Sleep Medicine Diagnoses Sleep apnea, unspecified type Snoring Excessive daytime sleepiness Procedures Home Sleep Study Nehemias Yee APRN [address] [place] [address] Phone: tel: fax: [facility] [address] [address] Phone: tel: fax: Referral ID Status Reason Start Date Expiration Date Visits Re quested Visits Authorized [id number] Closed 07/19/2024 09/17/2024 1 1 Encounter Details Date Type Department Care Team (Late st Contact Info) Description 08/29/2024 10:00 AM EDT Hospital Encounter [facility] [address] [place] [id number] Nehemias Yee, NETWORK LEAD [address] [place] [address] Sleep apnea, unspecified type; Snoring; Excessive daytime sleepiness Social History Tobacco Use Types Packs/Day Years Used Date Smoking Tobacco: Never Assessed Comments Unknown Sex and Gender Information Value Date Recorded Sex Assigned at Not on file Legal Sex Female 12:40 PM EDT Gender Identity Not on file Sexual Orientation Not on file documented as of this encounter Last Filed Vital Signs Vital Sign Reading Time Taken Comments Blood Pressure - - Pulse - - Temperature - - Respiratory Rate - - Oxygen Saturation - - Inhaled Oxygen Concentration - - Weight 107 kg (235 lb 14.3 oz) 08/29/2024 10:24 AM EDT Height 162.6 cm (5' 4.02 ) 08/29/2024 10:24 AM E DT Body Mass Index 40.47 08/29/2024 10:24 AM EDT documented in this encounter Plan of Treatment Not on file documented as of this encounter Procedures Procedure Name Priority Date/Time Associated Diagnosis Comments WATCHPAT Routine 08/30/2024 7:46 AM EDT Sleep apnea, unspecified type Snoring Excessive daytime sleepiness documented in this encounter Results * WATCHPAT (08/30/2024 7:46 AM EDT) Impressions SLEEP MEDICINE - 09/13/2024 2:47 PM EDT 1. Moderate obstructive sleep apnea. 2. Nocturnal hypoxemia (2.8 % time below 90% O2 sat) 3. Snoring. RECOMMENDATIONS: 1. Available data is suggestive of moderate obstructive sleep apnea. Consider auto CPAP trial 4 to 20 cm of water pressure and CPAP download on therapy to make sure we are not missing any other pathology and to determine the adequacy of the pressure settings. 2. Discuss good sleep hygiene habits, including but not limited to fixed wake up and sleep time, avoid alcohol 4 hours before sleep and not driving while drowsy. Maintain ideal body weight. I have conducted an epoch by epoch review of the raw data and agree with the interpretation. Electronically signed by: Jonathan Schumacher MD 09/13/24 14:46 EDT 22 Narrative SLEEP MEDICINE - 09/13/2024 2:47 PM EDT Table formatting from the original result was not included. Polysomnography Report Patient Name: Vicenta John Interpreting Physician: Jonathan Schumacher MD Date of : 1975 Referring Physician: Nehemias Yee APRN Primary Care Physician: Stu Balalrd MD Date of Study: 08/29/24 Clinical Information Patient is a 48 y.o. female. Height: 162.6 cm (64.02 ) Weight: 107 kg (235 lb 14.3 oz) BMI (Calculated): 40.5 Patient presents with an [place] Sleepiness Scale of Total score: 5 Methods used for Home Sleep Testing: Patient had a home sleep test using an WatchPat device that uses peripheral arterial tone to measure arterial volume changes at the fingertip showing sympathetic nervous system activation. Sleep stages are determined based on signal characteristics and built in actigraphy can help determine sleep/wake periods. Both signal attenuation and pulse rate determine arousals correlating with respiratory events, and the pulse oximeter sensor determines blood oxygen saturations. Snoring and body position is determined through an intergrated sensor measuring decibals and actigraphy. Hypopneas were scored according to AASM definition 1A (3% desaturation). Tech Summary: Total recording time was 11 hrs, 28 min and total sleep time (TST) was 10 hrs, 40 min. Sleep efficiency was 93.0%. The Apnea-Hypopnea Index (AHI 3%) was 17.0 and of this, the central AHI (AHIc 3%) was 0.4. The SpO2 mary was 72% and time spent with SpO2 < 88% was 12.2 minutes. The average pulse rate was 62. Analysis Suspected atrial fibrillation duration (h:m:sec): Not detected. The longest atrial fibrillation event duration: Not detected. The average number of premature beats during the study: 0.4 per minute. (08/31/24 1322 : Blaine Cleveland, [facility]) Polysomnography Results Diagnostic Summary TOTAL RECORDING TIME: 11 hours and 28 minutes TOTAL SLEEP TIME: 10 hours and 40 minutes STAGE R % TST 32.9 Respiratory Data pAHI: 3% 17 pRDI: 21.3 pAHIc: 0.4 Cardiac AVG HR DURING SLEEP 62 HIGHEST HR DURING SLEEP 98 Oximetry MIN SPO2 72 O2 SATURATION, MEAN VALUE 92 Time below 90% O2 sat: 17.7 min Diagnostic Respiratory Index Summary by Body Position Supine AHI: 17.3; Non supine AHI: 16.8 Nehemias Yee APRN [facility] ORDERABLES Final Result SLEEP MEDICINE documented in this encounter Visit Diagnoses Diagnosis Sleep apnea, unspecified type Snoring Other dyspnea and respiratory abnormality Excessive daytime sleepiness documented in this encounter Care Teams Consulting Manager Relationship Specialty Start Date End Date Stu Ballard MD [facility] [place] [address] PCP - General Family Medicine 06/24/24 documented as of this encounter
--- OUTSIDE RECORDS SUMMARY | 2025-02-24 07:57 | XMS_ITS | Clinical Summary ---
Author Organization [employer] ([place], [place], [place], [place], [place]) Address [address] [place] [address] Care Team Providers Care Eyeglass Lens Generator Name Role Phone Chary Martin MD Primary Care Provider [phone] Allergies No known active allergies Medications No known medications Active Problems Problem Noted Date Diagnosed Date Amenorrhea 07/07/2023 Fatigue, unspecified type 07/07/2023 Encounter for screening mamm ogram for malignant neoplasm of breast 07/07/2023 Chest pain 05/19/2022 Primary hypertension 10/26/2020 Vitamin D deficiency 09/02/2020 Routine medical exam 08/27/2020 Hyperlipidemia 08/27/2020 Mood disorder 08/27/2020 Obesity with body mass index 30 or greater 08/27 Family History Medical History Relation Name Comments Alcohol abuse Mother Hypertension Mother Diabetes Other Dementia Paternal Grandmother Breast cancer Neg Hx Ovarian cancer Neg Hx Relation Name Status Comments Maternal Grandfather Mother Other half sister Paternal Grandmother Social History Tobacco Use Types Packs/Day Years Used Date Smoking Tobacco: Never Smokeless Tobacco: Current Tobacco Cessation:Ready to Q uit: Not Asked; Counseling Given: Not Answered Alcohol Use Standard Drinks/Week Comments Yes 0 (1 standard drink = 0.6 oz pur e alcohol) Exercise Vital Sign Answer Date Recorde d On average, how many days pe r week do you engage in moderate to strenuous exercise (like a brisk walk)? 3 days 07/07/2023 On average, how many minutes do you engage in exercise at this level? 30 min 07/07/2023 Family and Community Support Answer Sebsa e Recorded Help with Day to Day Activities Not on file 04/17/2023 Feeling Lonely or Isolated Not on file 04/17 Educational Attainment Answer Date Amador rded Speak language other than Yakut at home Not on file 04/17/2023 Want help with school or training Not on file 04/17/2023 Substance Use Answer Date Recorded Used prescription meds for non-medical reasons N ot on file 04/17/2023 Used illegal drugs past 12 months Not on file 04/17/2023 Comments No Sex and Gender Information Value Date Recorded Sex Assigned at Female 09/25/2021 11:19 PM CDT Legal Sex Female 3:34 PM CDT Gender Identity Female 09/25/2021 11:19 PM CDT Sexual Orientation Straight 05/06/2023 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 Last Filed Vital Signs Vital Sign Reading Time Taken Comments Blood Pressure 148/84 08/17/2023 3:00 PM EDT Pulse 73 08/17/2023 2:30 PM EDT Temperature 36.1 C (97 F) 08/17/2023 2:30 PM EDT Respiratory Rate 16 08/17/2023 2:30 PM EDT Oxygen Saturation 97% 08/17/2023 2:30 PM EDT Inhaled Oxygen Concentration - - Weight 106.6 kg (235 lb) 08/17/2023 2:30 PM EDT Height 165.1 cm (5' 5 ) 08/17/2023 2:30 PM EDT Body Mass Index 39.11 08/17/2023 2:30 PM EDT Plan of Treatment Health Maintenance Due Date Last Done Comments CT Colonography 1975 FOBT/FIT 1975 Fit-DNA (Cologuard) 1975 Sigmoidoscopy 1975 Depression Screening (12+) 1985 DTAP/TDAP/TD VACCINES (2 - Td or Tdap) 01/06/2022 Pap Smear 08/25/2023 08/24/2020 Pneumococcal 50+ years (1 of 1 - PCV) 11/06/2023 Shingles Vaccine (Zoster) (1 of 2) 11/06/2023 Breast Cancer Screening 07/18/2024 07/18/2022, 08/26 Tobacco Cessation Counseling and Screening (12+) 08/16/2024 08/17/2023 COVID-19 VACCINE (3 - 2025-26 season) 2024, 09/13/2020 Influenza Vaccine (#1) 2024 03/14/2014 Lipid Panel 07/06/2026 07/07/2023, 05/23/2022 Colonoscopy 08/14/2026 08/14/2016, 08/13/2016 Colorectal Cancer Screening 08/14/2026 HIV Screening Completed 07/07/2023 Hepatitis C Screening Completed 07/07/2023 Procedures Procedure Name Priority Date/Time Associated Diagnosis Comments ACUTE HEPATITIS ([facility]) Routine 07/07/2023 11:41 AM EDT Elevated liver enzymes HIV-1 ANTIGEN WITH HIV-1/2 ANTIBODY Routine 07/07/2023 11:41 AM EDT Encounter for screening for HIV LIPID PANEL Routine 07/07/2023 11:41 AM EDT Mixed hyperlipidemia MM DIGITAL MAMMO SCREEN WITH BRADLEY BILATERAL Routine 07/18/2022 10:05 AM EDT Encounter for screening mammogram for malignant neoplasm of breast HM PAP SMEAR Routine 08/24/2020 HM COLONOSCOPY Routine 08/14/2016 from Last 3 Months or Most Recently Relevant to Health Maintenance Results * Acute Hepatitis Panel (07/07/2023 11:41 AM EDT) Hep A Ab, IgM Negative Negative [facility] HBsAg Screen Negative Negative [facility] Hep B Core Ab, IgM Negative Negative [facility] HCV Ab Non Reactive Non Reactive [facility] Blood 07/07/2023 11:4 1 AM EDT 07/07/2023 Narrative [facility] - 07/08/2023 1:07 PM EDT Performed at: [address] [id number] Portable Track Line Marker: Bharath Adler PhD, Phone: [phone] us Chary Martin MD LAB BLOOD ORDERABLES Final Resu lt [facility] * HIV-1 Antigen with HIV-1/2 Antibody (07/07/2023 11:41 AM EDT) HIV Screen 4th Generation wRfx Non Reactive Non Reactive [facility] Comment: HIV Negative HIV-1/HIV-2 antibodies and HIV-1 p24 antigen were NOT detected. There is no laboratory evidence of HIV infection. Blood 07/07/2023 11:4 1 AM EDT 07/07/2023 Narrative [facility] - 07/08/2023 1:07 PM EDT Performed at: - [address] [id number] Portable Track Line Marker: Bharath Adler PhD, Phone: [phone] Chary Martin MD LAB BLOOD ORDERABLES Final Resu lt Performing Organization Address [facility] de Phone Number [facility] * (ABNORMAL) Lipid panel (07/07/2023 11:41 AM EDT) Pathologist [facility] Cholesterol, Total 231(H) 100 - 199 mg/dL [facility] Triglycerides 133 0 - 149 mg/dL [facility] HDL Cholesterol 46 >39 mg/dL [facility] VLDL Cholesterol Ned 24 5 - 40 mg/dL [facility] LDL Calculated 161(H) 0 - 99 mg/dL [facility] Blood 07/07/2023 11:4 1 AM EDT 07/07/2023 Narrative [facility] - 07/08/2023 1:07 PM EDT Performed at: [address] [id number] Portable Track Line Marker: Bharath Adler PhD, Phone: [phone] Chary Martin MD LAB BLOOD ORDERABLES Final Resu lt Performing Organization Address City/[facility] Co de Phone Number [facility] * MM digital mammo screen with bradley bilateral (07/18/2022 10:05 AM EDT) Anatomical Region Laterality Modality Breast Bilateral Mammography 07/18/2022 10:5 9 AM EDT Impressions 07/18/2022 11:04 AM EDT FINAL IMPRESSION: ACR BI-RADS 1: Negative. RECOMMENDATIONS: Annual screening mammography. A letter including results and recommendations was sent to the patient. Density notification was included for patients with pattern 3 or 4 breast tissue. Patient information was entered into a reminder system with a target due date for the next mammogram. At our facility, a [place] marker is positioned over a visible skin lesion and a linear marker is used to indicate a scar. A triangular marker is placed on a self reported palpable finding. Note: Mammography does not detect approximately 10-15% of breast cancers. An annual clinical breast exam by the patient's breast care physician and regular monthly self breast exams by the patient are integral parts of breast cancer screening, in addition to annual mammography. A normal mammogram does not completely exclude the presence of breast cancer, especially if there is an abnormal finding on physical exam. When clinically indicated, a biopsy should not be deferred because of a normal mammogram report. Narrative 07/18/2022 11:04 AM EDT PROCEDURE: Digital screening mammogram with Digital Breast Tomosynthesis (DBT). REASON FOR EXAM: Routine screening. FAMILY HISTORY: No family history of breast cancer. COMPARISON STUDY: 2017 from [facility] FINDINGS: Craniocaudal and mediolateral oblique images of both breasts were obtained in 2D and DBT modes. Synthesized views were reconstructed from DBT data. The breast tissue has pattern b (scattered fibroglandular densities). There is no evidence of dominant mass, architectural distortion, or suspicious calcifications. The mammogram was interpreted with the benefit of computer aided detection (CAD). Chary Martin MD IMG MAMMOGRAPHY ORDERABLES Amara l Result * HM PAP SMEAR (08/24/2020) us Chary Martin MD HEALTH MAINTENANCE Final Result * HM COLONOSCOPY (08/14/2016) Amrita Lee MD HEALTH MAINTENANCE Final Result from Last 3 Months or Most Recently Relevant to Health Maintenance Insurance BLUE CROSS/BLUE SHIELD Care Teams Eyeglass Lens Generator Relationship Specialty Start Date End Date Chary Martin MD [address] [address] PCP - General Family Medicine 05/02/22
--- OUTSIDE RECORDS SUMMARY | 2025-02-24 07:57 | XMS_ITS | Referral Summary ---
Author Organization [employer] ([place], [place], [place], [place], [place]) Address [address] [place] [address] Care Team Providers Care Wellness Assistant Name Role Phone Chary Martin MD Primary Care Provider [phone] Allergies No known active allergies Medications No known medications Active Problems Problem Noted Date Diagnosed Date Amenorrhea 07/07/2023 Fatigue, unspecified type 07/07/2023 Encounter for screening mamm ogram for malignant neoplasm of breast 07/07/2023 Chest pain 05/19/2022 Primary hypertension 10/26/2020 Vitamin D deficiency 09/02/2020 Routine medical exam 08/27/2020 Hyperlipidemia 08/27/2020 Mood disorder 08/27/2020 Obesity with body mass index 30 or greater 08/27 Social History Tobacco Use Types Packs/Day Years [...] min 07/07/2023 Family and Community Support Answer Sebas e Recorded Help with Day to Day Activities Not on file 04/17/2023 Feeling Lonely or Isolated Not on file 04/17 Educational Attainment Answer Date Amador rded Speak language other than Georgian at home Not on file 04/17/2023 Want [...] Sexual Orientation Straight 05/06/2023 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 Filed Vital Signs Vital Sign Reading [...] 08/17/2023 2:30 PM EDT Plan of Treatment Not on file Procedures Procedure Name Priority Date/Time Associated Diagnosis [...] - 07/08/2023 1:07 PM EDT Performed at: [address] [place] [id number] Tie Maker: Bharath Adler PhD, Phone: [phone] Chary Martin MD LAB BLOOD ORDERABLES Final Resu lt Performing Organization Address [facility] Co de Phone Number [facility] * HIV-1 Antigen with HIV-1/2 Antibody (07/07/2023 11:41 AM EDT) [facility] HIV Screen 4th Generation wRfx Non Reactive Non Reactive [facility] Comment: HIV Negative HIV-1/HIV-2 antibodies and HIV-1 p24 antigen were NOT detected. There is no laboratory evidence of HIV infection. Blood 07/07/2023 11:4 1 AM EDT 07/07/2023 Narrative [facility] - 07/08/2023 1:07 PM EDT Performed at: [address] [place] [id number] Tie Maker: Bharath Adler PhD, Phone: [phone] Chary Martin MD LAB BLOOD ORDERABLES Final Resu lt Performing Organization Address City/[facility]/ZIP Co de Phone Number [facility] * (ABNORMAL) Lipid panel (07/07/2023 11:41 AM EDT) [facility] Cholesterol, Total 231(H) 100 - 199 mg/dL [facility] Triglycerides 133 0 - 149 mg/dL [facility] HDL Cholesterol 46 >39 mg/dL [facility] VLDL Cholesterol Ned 24 5 - 40 mg/dL [facility] LDL Calculated 161(H) 0 - 99 mg/dL [facility] Blood 07/07/2023 11:4 1 AM EDT 07/07/2023 Narrative [facility] - 07/08/2023 1:07 PM EDT Performed at: - [facility] [address] [id number] Tie Maker: Bharath Adler PhD, Phone: [phone] Chary Martin MD LAB BLOOD ORDERABLES Final Resu lt [facility] * MM digital mammo screen with [...] the next mammogram. At our facility, a [place] marker is positioned over a visible skin [...] of breast cancer. COMPARISON STUDY: 2017 from [facility] FINDINGS: Craniocaudal and mediolateral oblique images [...] l Result * HM PAP SMEAR (08/24/2020) Chary Martin MD HEALTH MAINTENANCE Final Result * HM COLONOSCOPY (08/14/2016) Amrita Lee MD HEALTH MAINTENANCE Final Result from Last 3 Months or Most Recently Relevant to Health Maintenance Insurance BLUE CROSS/BLUE SHIELD Care Teams Wellness Assistant Relationship Specialty Start Date End Date Chary Martin MD [address] [address] PCP - General Family Medicine 05/02/22
--- OUTSIDE RECORDS SUMMARY | 2025-02-24 07:57 | XMS_ITS | Clinical Summary ---
Author Organization [facility] Address [address] [place] [address] Phone Care Team Providers Care Dye Tub Operator Name Role Phone William Vazquez MD [ ] Conditions or Problems Problem Name Problem Code Onset Date Status Entry Date Provider Comment Standard Description Annotate Obesity, class 2, BMI 35 to <40 50141048 (SNOMED CT) 06/22 Active 06/22 Jazmín Jerod Coronary arteriosclerosis FEVER 898103684 (SNOMED CT) 07/27 Active 07/27 William Vazquez MD Fever Obesity, class 1, BMI 30 to <35 44478615 (SNOMED CT) 06/22 Inactive 06/22 Jazmín Jerod Coronary arteriosclerosis Cellulitis of RLE 747252020 (SNOMED CT) 06/22 Active 06/22 Jazmín Jerod Cellulitis of lower limb Neutrophilic leukemoid reaction 26295088 (SNOMED CT) 06/22 Active 06/22 Jazmín Jerod Leukemoid reaction Medications Medication Instructions Start Date Stop Date Generic Name [facility] Provider ceftriaxone recon soln Rocephin 2gm IV Q24hrs INPAT ceftriaxone recon arnaldo Torres CEPHALEXIN 500 MG CAPS 2 capsule by mouth twice a day take two twice a day x 4 weeks cephalexin [id number] William Vazquez MD ceftriaxone recon soln Rocephin 2gm IV Q24hrs INPAT ceftriaxone recon arnaldo Torres HIBICLENS 4 % SOLN Apply a small amount to skin once a day Wash body daily once a day for one week chlorhexidine gluconate 10350023072 William Vazquez MD PREDNISONE 20 MG TABS 2 PO DAILY prednisone [id number] Rossy Wall DOXYCYCLINE MONOHYDRATE 100 MG CAPS PO BID doxycycline monohydrate 97823023476 Rossy Wall DOXYCYCLINE MONOHYDRATE 100 MG CAPS PO BID doxycycline monohydrate 99305139291 July PREDNISONE 20 MG TABS 2 PO DAILY prednisone [id number] July Medications Administered No information available. Allergies, Adverse Reactions, Alerts Allergy Name Reaction Description Start Date Severity Statu s Provider WHEAT Moderate Active Carol May TREE NUT Moderate Active Carol May SULFA Moderate Active Carol May SOY Moderate Active Carol May SHRIMP Moderate Active Carol May SESAME SEED Moderate Active Courtne y May SCALLOPS Moderate Active Carol May HYDROCHLOROTHIAZIDE Moderate Active Carol May ESCITALOPRAM OXALATE Moderate Active Carol May LATEX Moderate Active Carol May Results Date Name Value Unit Range Flag Description Lab Report: CBC WITH AUTO DI FFERENTIAL ZZ-GE-unk 0.0 /100 WBC 0.0-0.2 GE use only - fo r [employer] import when terms are not otherwise specified IMMATUREGRAN 0.03 10*3/MM3 0.00-0.05 Immature granulocytes [#/volume] in Blood BASO# 0.07 10*3/mm3 0.00-0.20 Basophils [#/vol ume] in Blood EOS ABSLT 0.26 10*3/uL 0.00-0.40 Eosinophi ls [#/volume] in Blood MONOSCT AUTO 0.73 10*3/uL 0.10-0.90 Monocy edgardo [#/volume] in Blood by Automated count LYMPHCT AUTO 2.17 10*3/mm3 0.70-3.10 Lymph ocytes [#/volume] in Blood by Automated count ABS NEUTROPH 3.44 10*3/uL 1.70-7.00 Neutro phils [#/volume] in Blood IMM GRANU % 0.4 % 0.0-0.5 Immature granulocytes/100 leukocytes in Blood % EOS AUTO 3.9 % 0.3-6.2 Eosinophil s/100 leukocytes in Blood by Automated count MONOCYTE BF 10.9 % 5.0-12.0 monocyte s as percent of body fluid leukocytes LYMPHS % 32.4 % 19.6-45.3 Lymphocyte s/100 leukocytes in Blood by Automated count NEUTROP BF 51.4 % 42.7-76.0 Neutroph ils/100 leukocytes in Body fluid PLATELETS 349 10*3/mm3 140-450 Platelets [#/volume] in Blood by Automated count RDW 12.4 % 12.3-15.4 Erythrocyte distribution width [Ratio] by Automated count MCHC 32.3 G/DL 31.5-35.7 MCHC [Mass/ volume] by Automated count MCH 30.2 pg 26.6-33.0 MCH [Entiti c mass] by Automated count MCV 93.6 fL 79.0-97.0 MCV [Entiti c volume] by Automated count HCT 44.0 % 34.0-46.6 Hematocrit [Volume Fraction] of Blood by Automated count HGB 14.2 g/dL 12.0-15.9 Hemoglobin [Mass/volume] in Blood RBC 4.70 10*6/mm3 3.77-5.28 Erythrocyt es [#/volume] in Blood by Automated count WBC 6.70 10*3/mm3 3.40-10.8 0 Leukocytes [#/volume] in Blood by Automated count Lab Report: SEDIMENTATION RA TE ESR 66 mm/h 0-30 H Erythrocyte sedimentation rate by Westergren method Lab Report: C-REACTIVE PROTE IN CRP 1.35 mg/dL 0.00-0.50 H C reactive protein [Mass/volume] in Serum or Plasma Lab Report: COMPREHENSIVE ME TABOLIC PANEL ANIONGAP 13.0 mmol/L 5.0-15.0 anion gap, serum BUN/CREAT 13.0 7.0-25.0 Urea nitrogen/Creatinine [Mass Ratio] in Serum or Plasma BILI TOTAL 0.3 mg/dL 0.0-1.2 Bilirubin. total [Mass/volume] in Serum or Plasma ALK PHOS 63 U/L 39-117 Alkaline sandi sphatase [Enzymatic activity/volume] in Blood SGOT (AST) 33 U/L 1-32 H Aspartate aminotransferase [Enzymatic activity/volume] in Serum or Plasma SGPT (ALT) 41 U/L 1-33 H Alanine aminotransferase [Enzymatic activity/volume] in Serum or Plasma ALBUMIN 3.9 g/dL 3.5-5.2 Albumin [Mass/volume] in Serum or Plasma PROTEIN, TOT 7.1 g/dL 6.0-8.5 Protein [Mass/volume] in Serum or Plasma CALCIUM 9.4 mg/dL 8.6-10.5 Calcium [Moles/volume] in Serum or Plasma CO2 23.0 mmol/L 22.0-29.0 Carbon diox nabil, total [Moles/volume] in Venous blood CHLORIDE 102 mmol/L 98-107 Chloride [Moles/volume] in Serum or Plasma POTASSIUM 3.9 mmol/L 3.5-5.2 Potassium [Moles/volume] in Serum or Plasma SODIUM 138 mmol/L 136-145 Sodium [Moles/volume] in Serum or Plasma CREATININE 0.77 mg/dL 0.57-1.00 Creatini ne [Mass/volume] in Serum or Plasma BUN 10 mg/dL 6-20 Urea nitrogen [Mass/volume] in Serum or Plasma GLUCOSE SER 103 mg/dL 65-99 H Glucose [Mass/volume] in Serum or Plasma Office Visit: Office Visit:m 7 MEDS REVIEW Done Documenta tion of current medications (procedure) SMOK STATUS Never smoker Tobacco smoking status Plan of Care Type Date Detail Pending order Discontinue IV a ntibiotics Pending order New Oral Antibio tic Pending order Continue IV anti biotics Pending order PIV/Butterfly Pending order New IV antibioti c Pending order CMP Pending order CBC w/o Differen tial Pending order Blood Cultures X 2 Pending order Stat Weekly Labs Pending order CMP Pending order CBC w/o Differen tial Pending order ASO Titer Pending order C- reactive prot ein Pending order Sedimentation Ra te (ESR) Pending order Immunoglobulins Quant (IGG,IGA,IGE,IGM) Procedures Code Procedure Name Date Entry Date CPT-ca Continue IV antibiotics 2024 CPT-25597 PIV/Butterfly CPT-levi New IV antibiotic CPT-25751 CMP CPT-71162 CBC w/o Differential CPT-01971 Blood Cultures X2 CPT- stat weekly Stat Weekly Labs CPT-28018 CMP CPT-59005 CBC w/o Differential CPT-43572 ASO Titer CPT-47114 C- reactive protein CPT-40247 Sedimentation Rate (ESR) 202 07/31/27 CPT-69548 Immunoglobulins Quant (IGG,IGA,IGE,IGM) 2 Vital Signs Date Name Value Unit Description BMI (Body Mass Index) 40.26 kg/m2 Bod y Mass Index (Ratio) Body Temperature 98.1 [degF] temperat ure E&M BP Diastolic 82 mm[Hg] blood pressu re, diastolic BP Systolic 128 mm[Hg] blood pressur e, systolic Heart Rate 72 /min pulse rate Height 64 [in_us] height E&M Respiratory Rate 16 /min respirat ory rate E&M Weight Measured 234.6 [lb_av] weight E& M Weight Measured 234.6 [lb_av] weight E& M Immunizations No information available. Advance Directives No information available.
--- OUTSIDE RECORDS SUMMARY | 2025-02-24 07:57 | XMS_ITS | Clinical Summary ---
Author Organization [facility] Address [address] [place] [address] Care Team Providers Care Custom Feed Mill Operator Name Role Phone Stu Ballard MD Primary Care Provider +1- [phone] Allergies Active Allergy Reactions Criticality Noted Date Comments Hydrochlorothiazide Rash Low 07/19/2024 Medications No known medications Active Problems No known active problems Social History Tobacco Use Types Packs/Day Years Used Date Smoking Tobacco: Never Assessed Tobacco Cessation:Counseling Given: Not Answered Comments Unknown Sex and Gender Information Value Date Recorded Sex Assigned at Not on file Legal Sex Female 12:40 PM EDT Gender Identity Not on file Sexual Orientation Not on file Last Filed Vital Signs Vital Sign Reading Time Taken Comments Blood Pressure 138/70 07/19/2024 3:05 PM EDT Pulse 91 07/19/2024 3:05 PM EDT Temperature 36.5 C (97.7 F) 07/19/2024 3:05 PM EDT Respiratory Rate - - Oxygen Saturation 96% 07/19/2024 3:05 PM EDT Inhaled Oxygen Concentration - - Weight 107 kg (235 lb 14.3 oz) 08/29/2024 10:24 AM EDT Height 162.6 cm (5' 4.02 ) 08/29/2024 10:24 AM E DT Body Mass Index 40.47 08/29/2024 10:24 AM EDT Plan of Treatment Health Maintenance Due Date Last Done Comments Annual Gynecologic Pelvic and Breast Exam 1973 TDAP/TD VACCINES (1 - Tdap) 1992 PAP SMEAR 1994 COLOGUARD 2018 COLON CANCER SCREENING 5 YEA R SIGMOIDOSCOPY 2018 CT COLONOGRAPHY 2018 FECAL OCCULT BLOOD TEST 2018 FIT Testing (1 year) 2018 Pneumococcal Vaccine 50+ (1 of 1 - PCV) 11/06/2023 ZOSTER VACCINE (1 of 2) 11/06/2023 ANNUAL PHYSICAL 07/14/2024 HEPATITIS C SCREENING 07/14/2024 MAMMOGRAM 07/18/2024 07/18/2022, 07/18/2022 INFLUENZA VACCINE 10/28/2024 COLONOSCOPY 08/14/2026 08/14/2016 COLORECTAL CANCER SCREENING 08/14/2026 [facility] [address] [employer] P[employer] Member Subscriber Plan / Payer (Ef fective 2020-Present) Name:Vicenta John Relation to Subscriber:Spouse Name:Mc John Date of :1971 (Home) Address: [address] [place] [address] Payer ID:[id number] (NAIC) Type:Not on file Address: [id number] [employer] Care Teams Custom Feed Mill Operator Relationship Specialty Start Date End Date Stu Ballard MD [address] [place] [address] PCP - General Family Medicine 06/24/24
--- OUTSIDE RECORDS SUMMARY | 2025-02-24 07:57 | XMS_ITS | Encounter Summary ---
Author Organization [facility] Address [address] [place] [address] Care Team Providers Care Drama Director Name Role Phone Stu Ballard MD Primary Care Provider +1- [phone] Reason for Referral * Durable Medical Equipment (Routine) - Closed Specialty Diagnoses / Procedures Referred By Contac t Referred To Contact Diagnoses Obstructive sleep apnea, adult Procedures PAP Therapy Nehemias Yee APRN [address] [place] [address] Phone: tel: fax: LOCATION NOT FOUND IN SYSTEM [facility] [place] [address] Phone: tel: Referral ID Status Reason Start Date Expiration Date Visits Re quested Visits Authorized [id number] Closed 09/13/2024 12/13/2025 1 1 Encounter Details Date Type Department Care Team (Late st Contact Info) Description 09/13/2024 Results Follow-Up [facility] [address] [place] [id number] Nehemias Yee APRN [address] [place], [place] [id number] Social History Tobacco Use Types Packs/Day Years Used Date Smoking Tobacco: Never Assessed Comments Unknown Sex and Gender Information Value Date Recorded Sex Assigned at Not on file Legal Sex Female 12:40 PM EDT Gender Identity Not on file Sexual Orientation Not on file documented as of this encounter Plan of Treatment Not on file documented as of this encounter Visit Diagnoses Diagnosis Obstructive sleep apnea, adult- Primary documented in this encounter Care Teams Drama Director Relationship Specialty Start Date End Date Stu Ballard MD [address] [place] [address] PCP - General Family Medicine 06/24/24 documented as of this encounter
[2025-02-24] MEDS: ALBUTEROL 0.083% 2.5 MG/3 ML NEB IH (09:46)
== END 2025-02-24 23:59 | disposition home or self-care (01) ==
LOC: RT 07:55
PROVIDERS: PCP Family Medicine; Visit Provider Internal Medicine Pulmonary Disease
DX: R94.2 Abnormal results of pulmonary function studies (principal); R06.02 Shortness of breath; R06.09 Other forms of dyspnea
CPT/HCPCS: 94060; 94618; 94726; 94729